=== PATIENT | female | born 1950 | race Caucasian/White ===

== ENCOUNTER 2020-08-20 10:35 | Outpatient (REF) | payer MEDICARE, SELFPAY ==
[2020-08-20 13:59] LABS: MANUAL DIFF FLAG NO
[2020-08-20 14:05] LABS: Basophils Absolute Auto 0.1 X10*3/uL (0.0-0.2); Basophils Percent Auto 0.6 % (0-2); Eosinophils Absolute Auto 0.4 X10*3/uL (0.0-0.4); Eosinophils Percent Auto 5.3 % (0-4); Hematocrit 34.5 % (37-47); Imm Gran Abs Auto 0.02 X10*3/uL (0.00-0.03); Imm Gran Pct Auto 0.3 % (0.0-0.4); Lymphocytes Absolute Auto 1.3 X10*3/uL (1.2-4.9); Lymphocytes Percent Auto 16.1 % (20-40); Mean Corpuscular HGB Conc 31.9 g/dl (31.0-35.0); Mean Corpuscular Hemoglobin 30.9 pg (27.0-33.0); Mean Corpuscular Volume 96.9 fL (80-98); Mean Platelet Volume 9.9 fL (9.4-12.3); Monocytes Absolute Auto 0.6 X10*3/uL (0.1-1.2); Monocytes Percent Auto 7.5 % (2-11); Neutrophils Absolute Auto 5.4 X10*3/uL (2.0-8.3); Neutrophils Percent Auto 70.2 % (45-73); Platelet Count 347 X10*3/uL (160-400); Red Blood Count 3.56 X10*6/uL (4.20-5.50); Red Cell Distribution Width 14.3 % (11.0-16.0); White Blood Count 7.8 X10*3/uL (4.8-10.8)
[2020-08-20 14:34] LABS: Uric Acid 8.4 mg/dL (2.4-5.7)
[2020-08-20 14:43] LABS: Alanine Aminotransferase 12 U/L (0-31); Albumin Level 3.8 g/dL (3.5-5.0); Alkaline Phosphatase 101 U/L (39-117); Anion Gap 15 (12-20); Aspartate Amino Transferase 16 U/L (5-31); Bilirubin Total 0.5 mg/dL (0.0-1.0); Blood Urea Nitrogen 24 mg/dL (9-16); Calcium 8.9 mg/dL (8.4-10.2); Carbon Dioxide 24 mmol/L (22-29); Chloride 106 mmol/L (96-108); Cholesterol 165 mg/dL; Estimated Glomerular Filt Rate 36; Glucose Fasting 84 mg/dL (60-99); HDL Cholesterol 63 mg/dL; LDL Cholesterol Calculated 90 mg/dl; Sodium 140 mmol/L (135-145); Total Protein 6.6 g/dL (6.5-8.0); Triglycerides 64 mg/dL
[2020-08-20 14:47] LABS: Thyroid Stimulating Hormone 1.17 uIU/mL (0.32-4.0)
== END 2020-08-20 10:36 | disposition home or self-care (01) ==
LOC: HO.10HDL 10:35
PROVIDERS: Absent Provider Internal Medicine; Visit Provider Internal Medicine Hypertension Specialist
DX: I12.9 Hypertensive chronic kidney disease with stage 1 through stage 4 chronic kidney disease, or unspecified chronic kidney disease (principal); N18.30 Chronic kidney disease, stage 3 unspecified
CPT/HCPCS: 36415; 80053; 80061; 84443; 84550; 85025

== ENCOUNTER 2020-11-18 12:36 | Outpatient (REF) | payer MEDICARE, SELFPAY ==
--- NOTE | ~2020-11-18 | XR_ITS ---
EXAMINATION: XR KNEE, RIGHT CLINICAL INFORMATION: Right knee pain COMPARISON: None TECHNIQUE: Two views of the right knee. FINDINGS: There is hypertrophic bony changes along the lateral patella and small superior-inferior periarticular spurring. This small to moderate joint effusion. There is loss of medial and lateral compartment joint space with periarticular spurring slightly greater in the lateral compartment. There is infrapatellar superficial soft tissue swelling. XR/XR knee RT 2V IMPRESSION: Degenerative arthritic changes within the tricompartments with moderate suprapatellar joint effusion. There is no acute fracture or loose body seen.
== END 2020-11-18 12:37 | disposition home or self-care (01) ==
LOC: HO.XRAY 12:36
PROVIDERS: PCP Internal Medicine; Visit Provider Internal Medicine
DX: M25.569 Pain in unspecified knee (principal)
CPT/HCPCS: 73560

== ENCOUNTER → 2020-12-03 11:12 | Outpatient (BNVA) | payer MEDICARE, SELFPAY | PROVIDERS: PCP Internal Medicine; Visit Provider Internal Medicine | DX: J44.9 Chronic obstructive pulmonary disease, unspecified (principal) | CPT/HCPCS: 99212 ==

== ENCOUNTER 2020-12-29 09:59 | Outpatient (REF) | payer MEDICARE, SELFPAY ==
[2020-12-29 13:56] LABS: MANUAL DIFF FLAG NO
[2020-12-29 14:06] LABS: Basophils Percent Auto 0.3 % (0-2); Eosinophils Absolute Auto 0.2 X10*3/uL (0.0-0.4); Eosinophils Percent Auto 2.6 % (0-4); Hematocrit 33.8 % (37-47); Hemoglobin 10.6 g/dl (12.0-16.0); Imm Gran Abs Auto 0.04 X10*3/uL (0.00-0.03); Imm Gran Pct Auto 0.5 % (0.0-0.4); Lymphocytes Absolute Auto 1.1 X10*3/uL (1.2-4.9); Lymphocytes Percent Auto 12.4 % (20-40); Mean Corpuscular HGB Conc 31.4 g/dl (31.0-35.0); Mean Corpuscular Hemoglobin 29.9 pg (27.0-33.0); Mean Corpuscular Volume 95.5 fL (80-98); Monocytes Absolute Auto 0.7 X10*3/uL (0.1-1.2); Monocytes Percent Auto 7.5 % (2-11); Neutrophils Absolute Auto 6.8 X10*3/uL (2.0-8.3); Neutrophils Percent Auto 76.7 % (45-73); Platelet Count 329 X10*3/uL (160-400); Red Blood Count 3.54 X10*6/uL (4.20-5.50); Red Cell Distribution Width 14.7 % (11.0-16.0); White Blood Count 8.9 X10*3/uL (4.8-10.8)
[2020-12-29 14:46] LABS: Creatinine Urine 126.17 mg/dL; Total Protein Urine Random < 7 mg/dL (<12)
[2020-12-29 14:50] LABS: Anion Gap 17 (12-20); Blood Urea Nitrogen 45 mg/dL (9-16); Calcium 9.4 mg/dL (8.4-10.2); Carbon Dioxide 25 mmol/L (22-29); Chloride 103 mmol/L (96-108); Estimated Glomerular Filt Rate 27; Magnesium 2.1 mg/dL (1.6-2.6); Phosphorus 4.1 mg/dL (2.7-4.5); Potassium 5.6 mmol/L (3.3-5.1); Sodium 139 mmol/L (135-145)
[2020-12-29 15:11] LABS: Thyroid Stimulating Hormone 1.69 uIU/mL (0.32-4.0)
[2020-12-30 18:41] LABS: Calcium (PTHI) 9.3 mg/dL (8.6-10.4); PTHI 106 pg/mL (14-64)
== END 2020-12-29 10:00 | disposition home or self-care (01) ==
LOC: HO.10HDL 09:59
PROVIDERS: Absent Provider Internal Medicine Hypertension Specialist; Visit Provider Internal Medicine
DX: E03.9 Hypothyroidism, unspecified (principal); I12.9 Hypertensive chronic kidney disease with stage 1 through stage 4 chronic kidney disease, or unspecified chronic kidney disease; N18.30 Chronic kidney disease, stage 3 unspecified
CPT/HCPCS: 36415; 80051; 82040; 82310; 82565; 83735; 83970; 84100; 84156; 84443; 84520; 85025

== ENCOUNTER → 2021-01-19 09:54 | Outpatient (BNVA) | payer MEDICARE, SELFPAY | PROVIDERS: PCP Internal Medicine; Visit Provider Orthopaedic Surgery | DX: M22.2X1 Patellofemoral disorders, right knee (principal) | CPT/HCPCS: 20610; 99202; J1040 ==

== ENCOUNTER 2021-02-21 17:05 | Emergency (ER) | payer MEDICARE, SELFPAY ==
[2021-02-21] VITALS (8 sets, daily range): BP systolic 111–161; BP diastolic 53–72; PULSE 70–85; RESP 12–20; TEMP 36.4; O2SAT 97–100; BMI 30.9
--- NOTE | ~2021-02-21 | CT_ITS ---
EXAMINATION: CT CERVICAL SPINE WITHOUT CONTRAST CT HEAD/BRAIN WITHOUT CONTRAST INDICATION INFORMATION: Fall. COMPARISON: None available. TECHNIQUE: Separate noncontrast CT examinations of the head and cervical spine were performed. Coronal and sagittal reformats were obtained at the acquisition workstation. This CT examination was performed using dose optimization techniques as appropriate, variously including the following: *Automated exposure control. *Adjustment of mA and/or kV according to patient size (this includes techniques or standardized protocols for targeted exams where dose is matched to indication/reason for exam; i.e. extremities or head). *Use of iterative reconstruction technique. DLP: 797 mGy-cm FINDINGS: HEAD: There is no evidence of acute intracranial hemorrhage or territorial infarction. No abnormal mass effect or midline shift is seen. Tktc-yc-wqqpv matter differentiation is well preserved. No extra-axial fluid collections are identified. Mild ventricular prominence. Moderate patchy deep white matter and periventricular hypodensities, probably reflecting chronic microangiopathy. No acute calvarial fracture. The mastoid air cells and visualized portions of the paranasal sinuses are well aerated. CERVICAL SPINE: Straightening of the cervical curvature. Mild anterolisthesis of C3 on C4, C7 on T1. Craniocervical, atlantoaxial articulations are maintained. Vertebral body heights are maintained. No evidence of acute fracture. Prominent cervical spondylosis, more severe changes of C5-C6, C6-C7 severe disc degeneration. No prevertebral soft tissue swelling. There is no cervical lymphadenopathy. The visualized thyroid gland is unremarkable. Mild patchy ground-glass/hazy opacities in the right lung apex. CT/CT cervical spine wo con IMPRESSION: 1. No CT evidence of acute intracranial pathology. 2. No CT evidence of acute osseous abnormality within the cervical spine. 3. Severe cervical spondylosis. 4. Mild patchy airspace/ground-glass opacities in the right lung apex, nonspecific, could reflect infectious or inflammatory process.
--- NOTE | ~2021-02-21 | XR_ITS ---
EXAMINATION: XR ELBOW, LEFT CLINICAL INFORMATION: Pain status post fall COMPARISON: None TECHNIQUE: AP, lateral, and oblique views of the left elbow. FINDINGS: Acute dislocation posteriorly of the elbow joint. Limited positioning. No discernible fracture. Soft tissue swelling. XR/XR elbow LT min 3V IMPRESSION: Complete dislocation of the elbow joint as above.
--- NOTE | ~2021-02-21 | XR_ITS ---
EXAMINATION: XR ELBOW, LEFT CLINICAL INFORMATION: Post-procedure. COMPARISON: X-ray 02/20/2021, 8:45 PM. TECHNIQUE: Two views of the left elbow. FINDINGS: Status post reduction. There is normal articulation and alignment at the elbow joint. Joint space is maintained. No visible discrete acute fracture. Joint effusion present. Soft tissue swelling about the elbow. XR/XR elbow LT 2V IMPRESSION: Status post reduction, with anatomic alignment. No radiographically visible discrete acute fracture. Soft tissue swelling. Joint effusion.
--- NOTE | ~2021-02-21 | XR_ITS ---
EXAMINATION: PORTABLE CHEST 1 VIEW CLINICAL INFORMATION: ggo on neck ct in upper lobe . COMPARISON: 02/21/2021 CT scan. TECHNIQUE: Portable frontal view of the chest was obtained. FINDINGS: The lungs are well expanded. No focal infiltrate, effusion, edema, or pneumothorax. Cardiac and mediastinal silhouettes are within normal limits for technique. No acute bony abnormality seen. Degenerative changes in the spine and shoulders XR/XR chest 1V IMPRESSION: I do not appreciate any focal airspace disease on the chest x-ray. The subtle airspace changes on the CT scan are not readily apparent on chest x-ray
--- NOTE | ~2021-02-21 | XR_ITS ---
EXAMINATION: XR SHOULDER, LEFT CLINICAL INFORMATION: Fall with EtOH. Cannot move shoulder/arm COMPARISON: None TECHNIQUE: AP external rotation, Grashey, scapular Y, and axillary views of the left shoulder. FINDINGS: Degenerative changes in the glenohumeral joint. There is mild superior subluxation the femoral head more suggestive of chronic rotator cuff injury. There are associated degenerative changes with endplate sclerosis and osteophyte formation in the glenohumeral joint as well. Hypertrophic degenerative changes seen in the acromioclavicular joint. Visualized left ribs unremarkable XR/XR shoulder LT min 2V IMPRESSION: Chronic appearing and degenerative changes to the left shoulder. No definitive acute fracture or dislocation.
--- NOTE | 2021-02-21 17:27 | ED_ITS ---
HPI - Fall General Chief Complaint: Fall Stated Complaint: etoh, ?dislocated shoulder Time Seen by Provider: 02/21/21 17:18 Source: patient Mode of arrival: EMS Limitations: no limitations History of Present Illness HPI Narrative: Patient is a 71-year-old female with a past medical history of COPD, hypo thyroidism and chronic knee pain who was BIBA after she fell while drinking alcohol outside with her friends just prior to arrival. Patient cannot recall the details of her fall. She does state she had at least 5 bloody Sharon's. She denies being on a blood thinner but does take 1 baby aspirin per day. She denies any head pain, dizziness or changes in her vision. She also denies chest pain shortness of breath and any other pain except for left shoulder pain. She states she cannot move her arm. She is in a C-collar. Related Data Home Medications Medication Instructions Recorded Confirmed biotin 1 mg capsule 1 mg PO DAILY 12/03/20 12/09/20 cholecalciferol (vitamin D3) 50 50 mcg PO DAILY 12/03/20 12/09/20 mcg (2,000 unit) capsule ondansetron HCl 4 mg tablet mg PO 12/03/20 12/09/20 simvastatin 40 mg tablet 40 mg PO DAILY 12/03/20 12/09/20 spironolactone 25 1 tab PO DAILY 12/03/20 12/09/20 mg-hydrochlorothiazide 25 mg tablet Previous Rx's Medication Instructions Recorded levothyroxine 125 mcg tablet 125 mcg PO DAILY 90 Days #90 tab 07/20/20 albuterol sulfate 90 mcg/actuation 2 puff INHALATION Q4H PRN #18 g 10/13/20 aerosol inhaler fluoxetine 20 mg capsule 20 mg PO DAILY #90 cap 10/17/20 esomeprazole magnesium 20 mg 20 mg PO DAILY #90 cap 12/09/20 capsule,delayed release tiotropium bromide 18 mcg capsule 1 cap INHALATION DAILY #30 cap 12/22/20 with inhalation device oxycodone 5 mg tablet 5 mg PO Q6H PRN #9 tab 02/11/21 lisinopril 5 mg tablet 5 mg PO DAILY #90 cap 02/17/21 Allergies Allergy/AdvReac Type Severity Reaction Status Date / Time No Known Allergies Allergy Unknown N/A Verified 01/19/21 10:20 Review of Systems Review of Systems: Yes all other systems are reviewed and are negative [facility] Past Medical History Medical History COPD (chronic obstructive pulmonary disease) Hypothyroidism Surgical History History of breast biopsy History of carpal tunnel release History of excision of mass History of lumbar fusion Venous insufficiency Family History Family History Father Renal failure Mother Renal failure Brother Diabetes Social History Social History Alcohol intake: current Alcohol intake frequency: holidays/special occasions only Smoking Status: Former smoker Tobacco Type: Cigarette Advance Directives: No Advance Directives Information Provided: No Current occupational status: retired Current occupation: right handed Physical Exam Vital Signs: Vital Signs: Last Vital Signs Temp 97.6 F 02/21/21 17:12 Pulse 80 02/21/21 21:17 Resp 12 02/21/21 21:17 BP 111/57 L 02/21/21 21:17 Pulse Ox 98 02/21/21 21:17 Body Mass Index 30.9 Const: General: cooperative, healthy appearing, comfortable and no acute distress Nutritional Appearance: obese Orientation/consciousness: patient oriented x3 Limitations: other limitations (Clinically intoxicated) HENMT: Head: Yes normal to inspection, Yes No palpable skull fracture present, Yes normocephalic, Yes atraumatic, No abrasion, No Chanel's sign, No contusion and No raccoon eyes Ears: hearing grossly normal bilaterally General nose exam: Normal external nose present Face and sinus: Yes normal facial exam Mouth: Normal oral and palatal mucosa present Teeth and gingiva: dentition normal Eyes: General: appearance normal, both eyes and all related structures Pupils: Pupil size comments bilaterally 6 Neck: Neck: Yes normal visual inspection Resp: Effort & Inspection: normal respiratory effort and able to speak in complete sentences Auscultation: clear to auscultation bilaterally Back/Spine/Pelvis: Cervical Spine: collar present Neuro: General: patient oriented x3 Extrem: Other: Left shoulder unable to rotate, 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 Left forearm no tenderness to palpation. No tenderness to right upper extremity, 5/5 mechanical maintenance supervisor strength right side, no te nderness to palpation bilateral lower extremities, 5/5 strength equal both sides. No ecchymosis lacerations or abrasions noted on entire body. Psych: Speech and movement: Slurred speech present Attitude: cooperative Course Course Course Narrative: Patient is a 71-year-old female with a past medical history of COPD, hypo thyroidism and chronic knee pain who was BIBA after she fell while drinking alcohol outside with her friends just prior to arrival. Patient cannot recall the details of her fall. VSS. 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 Will get left shoulder x-ray. Will get head CT and neck CT as well since patient is intoxicated and cannot recall the details of her fall. Reevaluation(s) Reevaluation #1: Head and neck CT negative for acute processes. I removed the cervical collar. Patient c/o l shoulder pain, 7/10, will give Toradol and Tylenol. Pending left shoulder x-ray results. Time: 19:20 Reevaluation #2: Chest x-ray and shoulder x-ray of both negative, will assure patient's pain under control and likely discharge home. Time: 20:13 Reevaluation #3: Upon re-evaluation, patient so elbow could not flex or extend, got elbow x-ray which showed a complete dislocation. Pt given 150mg IM ketamine for the procedure. Dr Bonner reduced the joint, follow up x-ray showed joint in place. Will discharge pt with sling, she has a friend who will be picking her up and staying with her for the night. Time: 21:26 Procedures Orthopedic Joint Reduction Joint #1: Time Out Performed: Yes Side: left Joint Reduction Location: elbow Analgesia: procedural sedation (150mg IM ketamine) Technique used: direct manipulation Post Reduction X-Ray Obtained: Yes Post Reduction X-Ray Results: reduced Splint Applied: No Patient Tolerated Procedure: well and no complications Additional Comments: provided sling for pt MDM - Fall Medical Records Attestation: I reviewed the patient's medical records. Imaging Data Chest x-ray: Attestation: I personally reviewed and interpreted this imaging study as follows: My impression: no acute process Radiologist's impression: [id number] [place], [place] [address]RNsr ReportSigned Patient: Swathi YoungMR#: [id number]: 8Acct:[id number]/Sex: 71 / FADM Date: 02/21/21Loc: EDAttending Dr: Ordering Physician: Ml Kapadia PA-C Date of Service: 02/21/21 Procedure(s): XR chest 1V Accession Number(s): [id number] cc: Ml Kapadia PA-C~ EXAMINATION: PORTABLE CHEST 1 VIEW CLINICAL INFORMATION: ggo on neck ct in upper lobe . COMPARISON: 02/21/2021 CT scan. TECHNIQUE: Portable frontal view of the chest was obtained. FINDINGS: The lungs are well expanded. No focal infiltrate, effusion, edema, or pneumothorax. Cardiac and mediastinal silhouettes are within normal limits for technique. No acute bony abnormality seen. Degenerative changes in the spine and shoulders XR/XR chest 1V IMPRESSION: I do not appreciate any focal airspace disease on the chest x-ray. The subtle airspace changes on the CT scan are not readily apparent on chest x-ray Dictated By:ALEJANDRO SMITH MDSigned By:<Electronically signed by ALEJANDRO SMITH MD in [place]>02/21/211928 DD/ 99TD/TT: Geographic Information Systems Director: YING CT scan - head: Attestation: I personally reviewed and interpreted this imaging study as follows: My impression: no acute processes Radiologist's impression: [address] [id number] Scan ReportSigned Patient: Swathi YoungMR#: [id number]: 8Acct: [id number]/Sex: 71 / FADM Date: 02/21/21Loc: EDAttending Dr: Ordering Physician: Ml Kapadia PA-C Date of Service: 02/21/21 Procedure(s): CT head/brain wo con Accession Number(s): [id number] cc: Ml Kapadia PA-C~ EXAMINATION: CT CERVICAL SPINE WITHOUT CONTRAST CT HEAD/BRAIN WITHOUT CONTRAST INDICATION INFORMATION: Fall. COMPARISON: None available. TECHNIQUE: Separate noncontrast CT examinations of the head and cervical spine were performed. Coronal and sagittal reformats were obtained at the acquisition workstation. This CT examination was performed using dose optimization techniques as appropriate, variously including the following: *Automated exposure control. *Adjustment of mA and/or kV according to patient size (this includes techniques or standardized protocols for targeted exams where dose is matched to indication/reason for exam; i.e. extremities or head). *Use of iterative reconstruction technique. DLP: 797 mGy-cm FINDINGS: HEAD: There is no evidence of acute intracranial hemorrhage or territorial infarction. No abnormal mass effect or midline shift is seen. Kfix-lh-edhcv matter differentiation is well preserved. No extra-axial fluid collections are identified. Mild ventricular prominence. Moderate patchy deep white matter and periventricular hypodensities, probably reflecting chronic microangiopathy. No acute calvarial fracture. The mastoid air cells and visualized portions of the paranasal sinuses are well aerated. CERVICAL SPINE: Straightening of the cervical curvature. Mild anterolisthesis of C3 on C4, C7 on T1. Craniocervical, atlantoaxial articulations are maintained. Vertebral body heights are maintained. No evidence of acute fracture. Prominent cervical spondylosis, more severe changes of C5-C6, C6-C7 severe disc degeneration. No prevertebral soft tissue swelling. There is no cervical lymphadenopathy. The visualized thyroid gland is unremarkable. Mild patchy ground-glass/hazy opacities in the right lung apex. CT/CT head/brain wo con IMPRESSION: 1. No CT evidence of acute intracranial pathology. 2. No CT evidence of acute osseous abnormality within the cervical spine. 3. Severe cervical spondylosis. 4. Mild patchy airspace/ground-glass opacities in the right lung apex, nonspecific, could reflect infectious or inflammatory process. Dictated By:DARRELL BOB MDSigned By:<Electronically signed by DARRELL BOB MD in [place]>02/21/211851 DD/ 172TD/TT: Geographic Information Systems Director: YARITZA shoulder x-ray: Attestation: I personally reviewed and interpreted this imaging study as follows: My impression: No fracture or dislocation Radiologist's impression: Diagnostics DATE TYPE STATUS REF RANGE/AUTHOR Hx Today 19:00 Alejandro Smith Today 17:25 Alejandro Smith Today 17:25 Darrell Bob Today 17:25 Darrell Bob 02/08/21 00:00 Screening Mammo Bilateral w/CAD - [place] 11/18/20 12:42 Rere,Aaron Swathi Young 71, F0 1950 [facility], Emergency Department ED Bed 19 -ED19 5ft 6in 87.09kg BMI: 31.0kg/m? Fall Search Chart 1ST CURRENT Today Today 19:37 20:08 *from earlier documentation N/A ONSET Total Unconfirmed No Data to Display No Data to Display Swathi Young 71 F [address] [id number] ReportSigned Patient: Swathi YoungMR#: [id number]: 8Acct:[id number]/Sex: 71 / FADM Date: 02/21/21Loc: HO.EDAttending Dr: Ordering Physician: Ml Kapadia PA-C Date of Service: 02/21/21 Procedure(s): XR shoulder LT min 2V Accession Number(s): [id number] cc: Ml Kapadia PA-C~ EXAMINATION: XR SHOULDER, LEFT CLINICAL INFORMATION: Fall with EtOH. Cannot move shoulder/arm COMPARISON: None TECHNIQUE: AP external rotation, Grashey, scapular Y, and axillary views of the left shoulder. FINDINGS: Degenerative changes in the glenohumeral joint. There is mild superior subluxation the femoral head more suggestive of chronic rotator cuff injury. There are associated degenerative changes with endplate sclerosis and osteophyte formation in the glenohumeral joint as well. Hypertrophic degenerative changes seen in the acromioclavicular joint. Visualized left ribs unremarkable XR/XR shoulder LT min 2V IMPRESSION: Chronic appearing and degenerative changes to the left shoulder. No definitive acute fracture or dislocation. Dictated By:ALEJANDRO SMITH MDSigned By:<Electronically signed by ALEJANDRO SMITH MD in [place]>02/21/211938 DD/ 1725TD/TT: Geographic Information Systems Director: YING Discharge Plan Discharge Clinical Impression: Dislocation, elbow Qualifiers: Encounter type: initial encounter Laterality: left Qualified Code(s): S53.105A - Unspecified dislocation of left ulnohumeral joint, initial encounter Acute shoulder pain due to trauma Qualifiers: Laterality: left Qualified Code(s): M25.512 - Pain in left shoulder Patient Disposition: Home, Self-Care Instructions: Shoulder Sprain (ED), Elbow Dislocation (ED) Additional Instructions: Please rest your elbow, use the sling as until feeling better. Please follow up with orthopedics or your PCP. Please rest your left shoulder, you may use ice, acetaminophen and ibuprofen as needed. If your pain does not improve over the next few days and weeks, please be sure to follow-up with your primary care doctor. I have also given you the name of our orthopedic doctor if you feel you need to see one. Please try to do range of motion exercises as your pain permits so you avoid a frozen shoulder. Prescriptions: No Action levothyroxine 125 mcg tablet 125 mcg PO DAILY 90 Days Qty: 90 RF: 8 albuterol sulfate [ProAir HFA] 90 mcg/actuation HFA aerosol inhaler 2 puff inhalation Q4H PRN (Reason: shortness of breath or wheezing) Qty: 18 RF: 3 fluoxetine 20 mg capsule 20 mg PO DAILY Qty: 90 RF: 1 tiotropium bromide [Spiriva with HandiHaler] 18 mcg capsule, w/inhalation device 1 cap inhalation DAILY Qty: 30 RF: 3 oxycodone 5 mg tablet 5 mg PO Q6H PRN (Reason: pain) Qty: 9 RF: 0 lisinopril 5 mg tablet 5 mg PO DAILY Qty: 90 RF: 1 esomeprazole magnesium 20 mg capsule,delayed release(DR/EC) 20 mg PO DAILY Qty: 90 RF: 8 spironolacton-hydrochlorothiaz 25-25 mg tablet 1 tab PO DAILY RF: 0 simvastatin 40 mg tablet 40 mg PO DAILY RF: 0 ondansetron HCl 4 mg tablet PO RF: 0 cholecalciferol (vitamin D3) 50 mcg (2,000 unit) capsule 50 mcg PO DAILY RF: 0 biotin 1 mg capsule 1 mg PO DAILY RF: 0 Referrals: Rebecca Styles MD [Physician] - 1 week (status post elbow dislocation and reduction in ED. If no improvement in pain or range of motion, elbow.)
[2021-02-21] MEDS: Acetaminophen 325 MG TABLET 650 MG PO (18:05)
[2021-02-21] MEDS: ondansetron HCL 4 MG/2 ML VIAL IVPUSH (19:09)
[2021-02-21] MEDS: Ketorolac Tromethamine 30 MG/ML VIAL IVPUSH (19:10)
--- NOTE | 2021-02-21 19:19 | PC.NURSE ---
c-collar removed by provider. pt complaining of nausea, medicated with zofran. pt awake and alert, patent airway.
[2021-02-21] MEDS: Ketamine HCl 500 MG/5 ML VIAL 200 MG IM (21:09)
--- NOTE | 2021-02-21 21:11 | PC.NURSE ---
plans to sedate pt with md at bedside, with 200 mg ketamine. pt placed on manager monitoring and 2 lpm 02. pt awake and alert, aware of plan. pt has ride planned when ready for discharge.
--- NOTE | 2021-02-21 21:13 | PC.NURSE ---
md and rt at bedside, ketamine 200mg im administered.
--- NOTE | 2021-02-21 21:22 | PC.NURSE ---
spo2 remains in high 90's pt not verbal at this time but has good respiratory effort and rate. repeat radiology to left elbow. left upper extremity placed in sling.
--- NOTE | 2021-02-21 21:35 | PC.NURSE ---
pt awake and verbal, asking to go home.
--- NOTE | 2021-02-21 22:25 | PC.NURSE ---
pt unsteady on feet, brought to bathroom by wc. pt back in bed and encouraged to rest.
--- NOTE | 2021-02-21 23:12 | PC.NURSE ---
pt asked for her phone, is calling her friend for a ride. pt awake and alert, able to tolerate p.o. fluids.
== END 2021-02-21 23:46 | disposition home or self-care (01) ==
PROVIDERS: Emergency Provider Internal Medicine
DX: S53.105A Unspecified dislocation of left ulnohumeral joint, initial encounter (principal); M25.512 Pain in left shoulder; F10.129 Alcohol abuse with intoxication, unspecified; W01.0XXA Fall on same level from slipping, tripping and stumbling without subsequent striking against object, initial encounter; Y93.9 Activity, unspecified; Y92.9 Unspecified place or not applicable; Y99.9 Unspecified external cause status; Y90.9 Presence of alcohol in blood, level not specified; Z79.899 Other long term (current) drug therapy; Z87.891 Personal history of nicotine dependence
CPT/HCPCS: 23575; 23655; 70450; 71045; 72125; 73030; 73070; 73080; 96372; 96374; 96375; 99284; J1885; J2405

== ENCOUNTER 2021-03-22 15:46 | Outpatient (REF) | payer MEDICARE, SELFPAY ==
[2021-03-22 16:53] LABS: MANUAL DIFF FLAG NO
[2021-03-22 17:00] LABS: Basophils Absolute Auto 0.1 X10*3/uL (0.0-0.2); Basophils Percent Auto 0.7 % (0-2); Eosinophils Absolute Auto 0.2 X10*3/uL (0.0-0.4); Eosinophils Percent Auto 2.7 % (0-4); Hematocrit 32.9 % (37-47); Hemoglobin 10.5 g/dl (12.0-16.0); Imm Gran Abs Auto 0.03 X10*3/uL (0.00-0.03); Imm Gran Pct Auto 0.4 % (0.0-0.4); Lymphocytes Absolute Auto 1.3 X10*3/uL (1.2-4.9); Lymphocytes Percent Auto 18.5 % (20-40); Mean Corpuscular HGB Conc 31.9 g/dl (31.0-35.0); Mean Corpuscular Hemoglobin 31.1 pg (27.0-33.0); Mean Corpuscular Volume 97.3 fL (80-98); Mean Platelet Volume 9.8 fL (9.4-12.3); Monocytes Absolute Auto 0.5 X10*3/uL (0.1-1.2); Monocytes Percent Auto 7.1 % (2-11); Neutrophils Percent Auto 70.6 % (45-73); Platelet Count 330 X10*3/uL (160-400); Red Blood Count 3.38 X10*6/uL (4.20-5.50); Red Cell Distribution Width 14.3 % (11.0-16.0); White Blood Count 7.1 X10*3/uL (4.8-10.8)
[2021-03-22 17:23] LABS: Alanine Aminotransferase 6 U/L (0-31); Alkaline Phosphatase 106 U/L (39-117); Anion Gap 15 (12-20); Aspartate Amino Transferase 14 U/L (5-31); Bilirubin Total 0.5 mg/dL (0.0-1.0); Blood Urea Nitrogen 34 mg/dL (9-16); Calcium 9.3 mg/dL (8.4-10.2); Carbon Dioxide 25 mmol/L (22-29); Chloride 106 mmol/L (96-108); Estimated Glomerular Filt Rate 29; Glucose Random 97 mg/dL (60-115); Sodium 141 mmol/L (135-145); Total Protein 6.6 g/dL (6.5-8.0)
[2021-03-22 17:31] LABS: Creatinine Urine 88.02 mg/dL; Total Protein Urine Random < 7 mg/dL (<12)
== END 2021-03-22 15:47 | disposition home or self-care (01) ==
LOC: HO.LAB 15:46
PROVIDERS: PCP Internal Medicine; Visit Provider Internal Medicine Hypertension Specialist
DX: I12.9 Hypertensive chronic kidney disease with stage 1 through stage 4 chronic kidney disease, or unspecified chronic kidney disease (principal); N18.9 Chronic kidney disease, unspecified
CPT/HCPCS: 36415; 80053; 84156; 85025

== ENCOUNTER → 2021-05-20 11:10 | Outpatient (BNVA) | payer MEDICARE, SELFPAY | PROVIDERS: PCP Internal Medicine; Visit Provider Internal Medicine | DX: J44.9 Chronic obstructive pulmonary disease, unspecified (principal) | CPT/HCPCS: 99212 ==

== ENCOUNTER 2021-08-30 10:16 | Outpatient (REF) | payer MEDICARE, SELFPAY ==
[2021-08-30 13:56] LABS: MANUAL DIFF FLAG NO
[2021-08-30 14:06] LABS: Basophils Absolute Auto 0.1 X10*3/uL (0.0-0.2); Basophils Percent Auto 0.8 % (0-2); Eosinophils Absolute Auto 0.5 X10*3/uL (0.0-0.4); Eosinophils Percent Auto 5.5 % (0-4); Hematocrit 32.5 % (37.0-47.0); Hemoglobin 10.4 g/dl (12.0-16.0); Imm Gran Abs Auto 0.03 X10*3/uL (0.00-0.03); Imm Gran Pct Auto 0.4 % (0.0-0.4); Lymphocytes Absolute Auto 1.4 X10*3/uL (1.2-4.9); Lymphocytes Percent Auto 16.4 % (20-40); Mean Corpuscular Hemoglobin 30.5 pg (27.0-33.0); Mean Corpuscular Volume 95.3 fL (80.0-98.0); Mean Platelet Volume 10.1 fL (9.4-12.3); Monocytes Absolute Auto 0.6 X10*3/uL (0.1-1.2); Neutrophils Absolute Auto 5.9 x10*3/uL (2.0-8.3); Neutrophils Percent Auto 69.9 % (45-73); Platelet Count 394 X10*3/uL (160-400); Red Blood Count 3.41 X10*6/uL (4.20-5.50); Red Cell Distribution Width 14.5 % (11.0-16.0); White Blood Count 8.5 X10*3/uL (4.8-10.8)
[2021-08-30 14:29] LABS: Alanine Aminotransferase 8 U/L (0-31); Albumin Level 3.8 g/dL (3.5-5.0); Alkaline Phosphatase 90 U/L (39-117); Anion Gap 14 (12-20); Aspartate Amino Transferase 14 U/L (5-31); Bilirubin Total 0.2 mg/dL (0.0-1.0); Blood Urea Nitrogen 41 mg/dL (9-16); Calcium 9.4 mg/dL (8.4-10.2); Carbon Dioxide 25 mmol/L (22-29); Chloride 108 mmol/L (96-108); Cholesterol 182 mg/dL; Estimated Glomerular Filt Rate 30; Glucose Fasting 91 mg/dL (60-99); HDL Cholesterol 52 mg/dL; LDL Cholesterol Calculated 113 mg/dl; Potassium 5.5 mmol/L (3.3-5.1); Sodium 141 mmol/L (135-145); Total Protein 6.5 g/dL (6.5-8.0); Triglycerides 85 mg/dL
[2021-08-30 14:34] LABS: Creatinine Urine 114.21 mg/dL; Protein/Creatinine Ratio, Ur 0.08 (<0.2); Total Protein Urine Random 9 mg/dL (<12)
[2021-08-30 14:36] LABS: Thyroid Stimulating Hormone 1.25 uIU/mL (0.32-4.0)
[2021-08-31 14:10] LABS: Calcium (PTHI) 9.2 mg/dL (8.6-10.4); PTHI 65 pg/mL (14-64)
== END 2021-08-30 10:17 | disposition home or self-care (01) ==
LOC: HO.10HDL 10:16
PROVIDERS: Absent Provider Internal Medicine Hypertension Specialist; Visit Provider Internal Medicine
DX: Z00.00 Encounter for general adult medical examination without abnormal findings (principal); E11.9 Type 2 diabetes mellitus without complications; E03.9 Hypothyroidism, unspecified; N18.32 Chronic kidney disease, stage 3b
CPT/HCPCS: 36415; 80053; 80061; 83970; 84156; 84443; 85025

== ENCOUNTER 2021-10-29 10:08 | Outpatient (REF) | payer MEDICARE, SELFPAY ==
--- NOTE | ~2021-10-29 | CT_ITS ---
EXAMINATION: CT CHEST SCREENING CLINICAL INFORMATION: Lung cancer screening. Current smoker. One pack per day. COMPARISON: Previous chest CT scans most recent April 2020 TECHNIQUE: Multidetector volumetric CT imaging of the chest is performed without contrast using low dose technique. Additional 2D coronal and sagittal reformatted images and axial 3D maximum intensity projection (MIP) images are generated on the CT workstation. This CT examination was performed using dose optimization techniques as appropriate, variously including the following: *Automated exposure control *Adjustment of mA and/or kV according to patient size (this includes techniques or standardized protocols for targeted exams where dose is matched to indication/reason for exam; i.e. extremities or head) *Use of iterative reconstruction technique DLP: 54 mGy-cm FINDINGS: LUNGS: There is interval increase size in the central left upper lobe nodule adjacent to a vessel. This measures approximately 6 x 10 mm axial image 240 series 5 compared to 5 mm on previous exams. Again, this could be better visualized with IV contrast from the adjacent vessel. There is a 2 mm calcified left upper lobe nodule axial image 177 series 5 that. There are new clustered peribronchial nodules in the right middle lobe suggestive of airways disease example axial image 85 series 5. The previously identified clustered peribronchial nodules that were new in the bilateral lower lobes suggestive of airways disease on most recent exam April 2020 are no longer seen. There is still faint increased attenuation seen in the right upper lobe, for example axial image 15 series 3 that appears unchanged. There is a faint area of increased groundglass attenuation in the left upper lobe measuring 5 x 10 mm axial image 12 series 3 that is new. MEDIASTINUM: There is a large esophageal hernia. Thoracic aorta is tortuous. The heart does not appear enlarged. There is mild coronary artery calcification. There is no pericardial effusion. There are no enlarged hilar or mediastinal lymph nodes PLEURA: There is no pleural effusion. No pleural mass or thickening. AXILLA: No lymphadenopathy. UPPER ABDOMEN: There is a 1 cm high attenuation lesion exophytic to the upper pole of the left kidney axial image 53 series 3. There is a larger 1.5 cm high attenuation lesion exophytic to the lateral mid to upper pole of the left kidney axial image 99 series 3. There is a round 1.7 cm low-attenuation lesion exophytic to the anterior midpole of the left kidney axial image 59 series 3. There is question of a high attenuation lesion exophytic to the lateral upper pole right kidney measuring 2 cm axial These are difficult to characterize and follow-up dedicated renal imaging is again recommended. OSSEOUS STRUCTURES: Scoliosis and degenerative changes of the spine. CT/CT lung screening IMPRESSION: Interval increase in size in the left upper lobe central perivascular nodule now measuring 6 x 10 mm. New clustered peribronchial right middle lobe nodules probably representing airways disease. Large esophageal hernia. Indeterminate renal lesions. Dedicated renal imaging recommended. ASSESSMENT: Lung-RADS category 4S Suspicious. RECOMMENDATION: Follow-up chest CT with IV contrast or PET/CT scan should be considered. Dedicated renal imaging recommended.
== END 2021-10-29 10:09 | disposition home or self-care (01) ==
LOC: HO.CT 10:08
PROVIDERS: Visit Provider Physician Assistant Medical
DX: Z12.2 Encounter for screening for malignant neoplasm of respiratory organs (principal); F17.210 Nicotine dependence, cigarettes, uncomplicated
CPT/HCPCS: 71271

== ENCOUNTER → 2021-11-23 11:12 | Outpatient (BNVA) | payer MEDICARE, SELFPAY | PROVIDERS: PCP Internal Medicine; Visit Provider Internal Medicine | DX: J44.9 Chronic obstructive pulmonary disease, unspecified (principal); R91.1 Solitary pulmonary nodule; Z87.891 Personal history of nicotine dependence | CPT/HCPCS: 99212 ==

== ENCOUNTER 2021-11-24 11:51 | Outpatient (REF) | payer MEDICARE, SELFPAY ==
--- NOTE | 2021-11-24 16:11 | PFT_ITS ---
Forced vital capacity of 64%, FEV1 60%, FEV1/FVC ratio is 70. FEF 25-75 is 48%. MVV 75%. Post bronchodilator therapy, there is no change. Total lung capacity 100% and residual volume 136%, indicating some air trapping. Diffusion capacity is 37%. CONCLUSION: Moderately severe obstructive airway disorder. No response to bronchodilator therapy. Clinical correlation is recommended. MD AVA Eubanks/MODL / [id number]
== END 2021-11-24 11:52 | disposition home or self-care (01) ==
LOC: HO.RESP 11:51
PROVIDERS: PCP Internal Medicine; Visit Provider Surgery
DX: Z01.818 Encounter for other preprocedural examination (principal); R91.8 Other nonspecific abnormal finding of lung field; F17.200 Nicotine dependence, unspecified, uncomplicated
CPT/HCPCS: 94060; 94727; 94729

== ENCOUNTER → 2021-12-10 10:54 | Outpatient (BNVA) | payer MEDICARE, SELFPAY | PROVIDERS: PCP Internal Medicine; Visit Provider Surgery | DX: R91.1 Solitary pulmonary nodule (principal); F17.210 Nicotine dependence, cigarettes, uncomplicated; K44.9 Diaphragmatic hernia without obstruction or gangrene; Z79.899 Other long term (current) drug therapy; Z71.6 Tobacco abuse counseling | CPT/HCPCS: 99212 ==

== ENCOUNTER 2022-01-04 14:38 | Outpatient (REF) | payer MEDICARE, SELFPAY ==
[2022-01-04 15:40] LABS: Anion Gap 12 (12-20); Blood Urea Nitrogen 42 mg/dL (9-16); Carbon Dioxide 27 mmol/L (22-29); Chloride 107 mmol/L (96-108); Estimated Glomerular Filt Rate 24; Glucose Random 89 mg/dL (60-115); Potassium 5.3 mmol/L (3.3-5.1); Sodium 141 mmol/L (135-145)
== END 2022-01-04 14:39 | disposition home or self-care (01) ==
LOC: HO.LAB 14:38
PROVIDERS: PCP Internal Medicine; Visit Provider Internal Medicine Hypertension Specialist
DX: N18.32 Chronic kidney disease, stage 3b (principal)
CPT/HCPCS: 36415; 80048

== ENCOUNTER 2022-01-26 11:36 | Outpatient (REF) | payer MEDICARE, SELFPAY ==
[2022-01-26 13:37] LABS: Anion Gap 13 (12-20); Blood Urea Nitrogen 27 mg/dL (9-16); Calcium 9.9 mg/dL (8.4-10.2); Carbon Dioxide 28 mmol/L (22-29); Chloride 104 mmol/L (96-108); Estimated Glomerular Filt Rate 32; Potassium 4.9 mmol/L (3.3-5.1); Sodium 140 mmol/L (135-145)
== END 2022-01-26 11:37 | disposition home or self-care (01) ==
LOC: HO.10HDL 11:36
PROVIDERS: PCP Internal Medicine; Visit Provider Internal Medicine Hypertension Specialist
DX: N18.31 Chronic kidney disease, stage 3a (principal)
CPT/HCPCS: 36415; 80051; 82310; 82565; 84520

== ENCOUNTER 2022-02-03 14:53 | Outpatient (REF) | payer MEDICARE, SELFPAY ==
--- NOTE | ~2022-02-03 | US_ITS ---
EXAMINATION: US RETROPERITONEAL LIMITED (RENAL ONLY) CLINICAL INFORMATION: CKD stage III. COMPARISON: Renal ultrasound 10/17/2017. TECHNIQUE: Real-time imaging of the kidneys. FINDINGS: RIGHT KIDNEY: 11.2 x 4.9 x 4.4 cm (SAG x AP x TRV). The kidney is normal in size and echogenicity. Renal cortical thickness is normal. Lobulated Contour. No renal calculi or hydronephrosis. There are multiple simple renal cysts. The largest is seen at the lower pole measuring 4.9 cm. No follow-up imaging recommended. LEFT KIDNEY: 9.8 x 3.7 x 3.5 cm (SAG x AP x TRV). The kidney is normal in size and echogenicity. Lobulated Contour. Renal cortical thickness is normal. No renal calculi or hydronephrosis. There are multiple cysts identified appearing simple. The largest is at the lower pole measuring 1.8 cm. No follow-up imaging recommended. US/US renal BI IMPRESSION: Simple bilateral renal cysts for which no follow-up is recommended. No hydronephrosis.
== END 2022-02-03 14:54 | disposition home or self-care (01) ==
LOC: HO.US 14:53
PROVIDERS: PCP Internal Medicine Hypertension Specialist; Visit Provider Internal Medicine Hypertension Specialist
DX: N18.31 Chronic kidney disease, stage 3a (principal)
CPT/HCPCS: 76775

== ENCOUNTER 2022-04-13 09:45 | Outpatient (REF) | payer MEDICARE, SELFPAY ==
[2022-04-13 11:28] LABS: Anion Gap 12 (12-20); Blood Urea Nitrogen 31 mg/dL (9-16); Calcium 9.4 mg/dL (8.4-10.2); Carbon Dioxide 27 mmol/L (22-29); Chloride 105 mmol/L (96-108); Estimated Glomerular Filt Rate 32; Potassium 4.4 mmol/L (3.3-5.1); Sodium 140 mmol/L (135-145)
== END 2022-04-13 09:46 | disposition home or self-care (01) ==
LOC: HO.10HDL 09:45
PROVIDERS: Absent Provider Internal Medicine; Visit Provider Internal Medicine Hypertension Specialist
DX: N18.32 Chronic kidney disease, stage 3b (principal)
CPT/HCPCS: 36415; 80051; 82310; 82565; 84520

== ENCOUNTER 2022-05-20 08:53 | Outpatient (REF) | payer MEDICARE, SELFPAY ==
--- NOTE | ~2022-05-20 | CT_ITS ---
EXAMINATION: CT CHEST SCREENING CLINICAL INFORMATION: Current smoker 1 pack per day for 60 years COMPARISON: CT chest 10/29/2021 TECHNIQUE: Multidetector volumetric CT imaging of the chest is performed without contrast using low dose technique. Additional 2D coronal and sagittal reformatted images and axial 3D maximum intensity projection (MIP) images are generated on the CT workstation. This CT examination was performed using dose optimization techniques as appropriate, variously including the following: *Automated exposure control *Adjustment of mA and/or kV according to patient size (this includes techniques or standardized protocols for targeted exams where dose is matched to indication/reason for exam; i.e. extremities or head) *Use of iterative reconstruction technique DLP: 54 mGy-cm FINDINGS: LUNGS: The lungs are well-expanded. There is a 1.0 cm left perivascular nodule in the lingula, axial image 273/6, stable. There is a 2 mm calcified nodule, left upper lobe, axial image 210/6. Clustered nodules, right middle lobe, with branching tree appearance, axial image 310/6, are stable. There is a 2 mm nodule, right lower lobe, axial image 278/6, 302/6, stable. MEDIASTINUM: The thyroid lobes are symmetric and normal. The central trachea and the bronchi are widely patent. Heart size and the great vessels are normal caliber. No pericardial effusion seen. There is a small hiatal hernia. Trace coronary artery calcifications are present. PLEURA: There is no pleural effusion. No pleural mass or thickening. AXILLA: No lymphadenopathy. UPPER ABDOMEN: Visualized liver, spleen, pancreas and exophytic left renal cyst appears stable. OSSEOUS STRUCTURES: No lytic or sclerotic process seen. Mild ventral spondylosis, lower dorsal and upper lumbar spine, are normal. There is vacuum disc phenomena in the lower dorsal spine. CT/CT lung screen follow up IMPRESSION: Stable tiny pulmonary nodules, right lower lobe, branching tree-in-bud appearance right middle lobe and a larger perivascular 1.0 cm nodule in the lingula since the previous exam of 10/29/2021 ASSESSMENT: Lung-RADS category 2: Benign RECOMMENDATION: Low-dose annual CT chest
== END 2022-05-20 08:54 | disposition home or self-care (01) ==
LOC: HO.CT 08:53
PROVIDERS: PCP Internal Medicine; Visit Provider Physician Assistant Medical
DX: Z12.2 Encounter for screening for malignant neoplasm of respiratory organs (principal); Z87.891 Personal history of nicotine dependence
CPT/HCPCS: 71250

== ENCOUNTER → 2022-06-06 11:25 | Outpatient (BNVA) | payer MEDICARE, SELFPAY | PROVIDERS: PCP Internal Medicine; Visit Provider Internal Medicine | DX: J44.9 Chronic obstructive pulmonary disease, unspecified (principal); R91.1 Solitary pulmonary nodule; F17.210 Nicotine dependence, cigarettes, uncomplicated; Z79.899 Other long term (current) drug therapy | CPT/HCPCS: 99212 ==

== ENCOUNTER → 2022-06-17 09:54 | Outpatient (BNVA) | payer MEDICARE, SELFPAY | PROVIDERS: PCP Internal Medicine; Visit Provider Surgery | DX: R91.1 Solitary pulmonary nodule (principal); K44.9 Diaphragmatic hernia without obstruction or gangrene; F17.210 Nicotine dependence, cigarettes, uncomplicated | CPT/HCPCS: 99212 ==

== ENCOUNTER 2022-06-22 08:51 | Outpatient (REF) | payer MEDICARE, SELFPAY ==
[2022-06-22 10:22] LABS: MANUAL DIFF FLAG NO
[2022-06-22 10:44] LABS: Basophils Absolute Auto 0.1 X10*3/uL (0.0-0.2); Eosinophils Absolute Auto 0.5 X10*3/uL (0.0-0.4); Eosinophils Percent Auto 7.6 % (0-4); Hematocrit 34.8 % (37.0-47.0); Imm Gran Abs Auto 0.01 X10*3/uL (0.00-0.03); Imm Gran Pct Auto 0.1 % (0.0-0.4); Lymphocytes Absolute Auto 1.9 X10*3/uL (1.2-4.9); Lymphocytes Percent Auto 27.2 % (20-40); Mean Corpuscular HGB Conc 31.6 g/dl (31.0-35.0); Mean Corpuscular Hemoglobin 28.5 pg (27.0-33.0); Mean Corpuscular Volume 90.2 fL (80.0-98.0); Mean Platelet Volume 9.7 fL (9.4-12.3); Monocytes Absolute Auto 0.5 X10*3/uL (0.1-1.2); Monocytes Percent Auto 7.7 % (2-11); Neutrophils Absolute Auto 3.9 x10*3/uL (2.0-8.3); Neutrophils Percent Auto 56.4 % (45-73); Platelet Count 409 X10*3/uL (160-400); Red Blood Count 3.86 X10*6/uL (4.20-5.50); Red Cell Distribution Width 15.9 % (11.0-16.0); White Blood Count 6.9 X10*3/uL (4.8-10.8)
[2022-06-22 10:51] LABS: Alanine Aminotransferase 12 U/L (0-31); Albumin Level 3.9 g/dL (3.5-5.0); Alkaline Phosphatase 116 U/L (39-117); Anion Gap 16 (12-20); Aspartate Amino Transferase 17 U/L (5-31); Bilirubin Total 0.5 mg/dL (0.0-1.0); Blood Urea Nitrogen 22 mg/dL (9-16); Calcium 9.6 mg/dL (8.4-10.2); Carbon Dioxide 26 mmol/L (22-29); Chloride 103 mmol/L (96-108); Cholesterol 189 mg/dL; Estimated Glomerular Filt Rate 32; Glucose Fasting 109 mg/dL (60-99); HDL Cholesterol 58 mg/dL; LDL Cholesterol Calculated 115 mg/dl; Potassium 4.2 mmol/L (3.3-5.1); Sodium 141 mmol/L (135-145); Total Protein 6.8 g/dL (6.5-8.0); Triglycerides 83 mg/dL
== END 2022-06-22 08:52 | disposition home or self-care (01) ==
LOC: HO.10HDL 08:51
PROVIDERS: Visit Provider Internal Medicine
DX: E03.9 Hypothyroidism, unspecified (principal); E78.5 Hyperlipidemia, unspecified; I10 Essential (primary) hypertension; Z13.0 Encounter for screening for diseases of the blood and blood-forming organs and certain disorders involving the immune mechanism
CPT/HCPCS: 36415; 80053; 80061; 84443; 85025

== ENCOUNTER 2022-08-17 10:16 | Outpatient (REF) | payer MEDICARE, SELFPAY ==
[2022-08-17 14:00] LABS: Hematocrit 33.4 % (37.0-47.0); Hemoglobin 10.7 g/dl (12.0-16.0); Mean Corpuscular Hemoglobin 28.9 pg (27.0-33.0); Mean Corpuscular Volume 90.3 fL (80.0-98.0); Mean Platelet Volume 9.6 fL (9.4-12.3); Platelet Count 373 X10*3/uL (160-400); Red Cell Distribution Width 14.9 % (11.0-16.0); White Blood Count 7.1 X10*3/uL (4.8-10.8)
[2022-08-17 14:15] LABS: Anion Gap 17 (12-20); Blood Urea Nitrogen 32 mg/dL (9-16); Calcium 9.6 mg/dL (8.4-10.2); Carbon Dioxide 27 mmol/L (22-29); Chloride 103 mmol/L (96-108); Estimated Glomerular Filt Rate 35; Glucose Random 98 mg/dL (60-115); Potassium 4.9 mmol/L (3.3-5.1); Sodium 142 mmol/L (135-145)
[2022-08-18 11:12] LABS: Calcium (PTHI) 9.3 mg/dL (8.6-10.4); PTHI 117 pg/mL (16-77)
== END 2022-08-17 10:17 | disposition home or self-care (01) ==
LOC: HO.10HDL 10:16
PROVIDERS: Visit Provider Internal Medicine Hypertension Specialist
DX: N18.32 Chronic kidney disease, stage 3b (principal)
CPT/HCPCS: 36415; 80048; 83970; 85027

== ENCOUNTER 2022-08-22 09:10 | Outpatient (REF) | payer MEDICARE, SELFPAY ==
[2022-08-22 09:22] VITALS: BP 164/76; PULSE 61; RESP 16; TEMP 36.9; O2SAT 100; BMI 31.6
== END 2022-08-22 09:11 | disposition home or self-care (01) ==
LOC: HO.MS 09:10
PROVIDERS: PCP Internal Medicine; Visit Provider Ophthalmology
PROC: (CPT 66821; principal; 2022-08-22 13:10)
DX: H26.491 Other secondary cataract, right eye (principal); Z96.1 Presence of intraocular lens; E03.9 Hypothyroidism, unspecified; I10 Essential (primary) hypertension; E78.00 Pure hypercholesterolemia, unspecified; Z79.82 Long term (current) use of aspirin; Z79.899 Other long term (current) drug therapy; Z87.891 Personal history of nicotine dependence
CPT/HCPCS: 66821

== ENCOUNTER → 2023-01-03 09:42 | Outpatient (BNVA) | payer MEDICARE, SELFPAY | PROVIDERS: PCP Internal Medicine; Visit Provider Internal Medicine | DX: R91.1 Solitary pulmonary nodule (principal); J44.9 Chronic obstructive pulmonary disease, unspecified; Z87.891 Personal history of nicotine dependence | CPT/HCPCS: 99212 ==

== ENCOUNTER 2023-03-08 09:02 | Outpatient (REF) | payer MEDICARE, SELFPAY ==
[2023-03-08 10:39] LABS: MANUAL DIFF FLAG NO
[2023-03-08 10:43] LABS: Basophils Absolute Auto 0.1 X10*3/uL (0.0-0.2); Basophils Percent Auto 1.2 % (0-2); Eosinophils Absolute Auto 0.5 X10*3/uL (0.0-0.4); Eosinophils Percent Auto 7.6 % (0-4); Hematocrit 32.6 % (37.0-47.0); Imm Gran Abs Auto 0.01 X10*3/uL (0.00-0.03); Imm Gran Pct Auto 0.2 % (0.0-0.4); Lymphocytes Absolute Auto 1.4 X10*3/uL (1.2-4.9); Lymphocytes Percent Auto 22.4 % (20-40); Mean Corpuscular HGB Conc 30.7 g/dl (31.0-35.0); Mean Corpuscular Hemoglobin 26.7 pg (27.0-33.0); Mean Corpuscular Volume 87.2 fL (80.0-98.0); Mean Platelet Volume 9.8 fL (9.4-12.3); Monocytes Absolute Auto 0.5 X10*3/uL (0.1-1.2); Monocytes Percent Auto 7.9 % (2-11); Neutrophils Absolute Auto 3.7 x10*3/uL (2.0-8.3); Neutrophils Percent Auto 60.7 % (45-73); Platelet Count 388 X10*3/uL (160-400); Red Blood Count 3.74 X10*6/uL (4.20-5.50); Red Cell Distribution Width 16.6 % (11.0-16.0); White Blood Count 6.1 X10*3/uL (4.8-10.8)
[2023-03-08 10:56] LABS: Anion Gap 12 (12-20); Blood Urea Nitrogen 34 mg/dL (9-16); Calcium 9.5 mg/dL (8.4-10.2); Carbon Dioxide 27 mmol/L (22-29); Chloride 105 mmol/L (96-108); Estimated Glomerular Filt Rate 32; Glucose Random 105 mg/dL (60-115); Potassium 4.1 mmol/L (3.3-5.1); Sodium 140 mmol/L (135-145)
[2023-03-08 11:03] LABS: Alanine Aminotransferase 11 U/L (0-31); Albumin Level 3.8 g/dL (3.5-5.0); Alkaline Phosphatase 90 U/L (39-117); Anion Gap 12 (12-20); Aspartate Amino Transferase 14 U/L (5-31); Bilirubin Total 0.5 mg/dL (0.0-1.0); Blood Urea Nitrogen 34 mg/dL (9-16); Calcium 9.6 mg/dL (8.4-10.2); Carbon Dioxide 28 mmol/L (22-29); Chloride 106 mmol/L (96-108); Cholesterol 179 mg/dL; Estimated Glomerular Filt Rate 33; Glucose Fasting 105 mg/dL (60-99); HDL Cholesterol 56 mg/dL; LDL Cholesterol Calculated 108 mg/dl; Potassium 4.1 mmol/L (3.3-5.1); Sodium 142 mmol/L (135-145); Total Protein 6.5 g/dL (6.5-8.0); Triglycerides 76 mg/dL
[2023-03-08 11:18] LABS: Thyroid Stimulating Hormone 5.65 uIU/mL (0.32-4.0)
== END 2023-03-08 09:03 | disposition home or self-care (01) ==
LOC: HO.10HDL 09:02
PROVIDERS: Psychiatry & Neurology Neurology; Visit Provider Internal Medicine
DX: I12.9 Hypertensive chronic kidney disease with stage 1 through stage 4 chronic kidney disease, or unspecified chronic kidney disease (principal); E78.5 Hyperlipidemia, unspecified; N18.32 Chronic kidney disease, stage 3b; D63.1 Anemia in chronic kidney disease; E03.9 Hypothyroidism, unspecified; N28.9 Disorder of kidney and ureter, unspecified
CPT/HCPCS: 36415; 80048; 80053; 80061; 84443; 85025

== ENCOUNTER 2023-05-24 12:08 | Outpatient (REF) | payer MEDICARE, SELFPAY ==
[2023-05-24 13:26] LABS: Cholesterol 197 mg/dL; HDL Cholesterol 65 mg/dL; Iron 69 mcg/dL (30-160); LDL Cholesterol Calculated 112 mg/dl; Percent Iron Saturation 22 % (15-50); Total Iron Binding Capacity 314 mcg/dL (228-428); Triglycerides 100 mg/dL; Unsaturated Iron Binding 245 ug/dL
[2023-05-24 13:42] LABS: Thyroid Stimulating Hormone 0.46 uIU/mL (0.32-4.0)
== END 2023-05-24 12:09 | disposition home or self-care (01) ==
LOC: HO.10HDL 12:08
PROVIDERS: Visit Provider Internal Medicine
DX: E61.1 Iron deficiency (principal); E03.9 Hypothyroidism, unspecified; E78.5 Hyperlipidemia, unspecified
CPT/HCPCS: 36415; 80061; 83540; 84443

== ENCOUNTER 2023-06-19 10:37 | Outpatient (AMB) | payer MEDICARE, SELFPAY ==
[2023-06-19 10:43] VITALS: BP 132/58; PULSE 59; O2SAT 94; BMI 30.1
--- NOTE | 2023-06-19 10:43 | A.OFFPC_ITS ---
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 per policy Accompanied by: Self / Same As Patient Allergies No Known Allergies Allergy (Unknown, Verified 06/19/23 10:44) N/A Medication List - Last Reconciled 06/19/23 by Viral Dawson MD albuterol sulfate 90 mcg/actuation 2 puffs PO Q4H PRN biotin 1 mg PO DAILY calcium carbonate (Calcium 500) 500 mg PO DAILY cholecalciferol (vitamin D3) 50 mcg PO DAILY esomeprazole magnesium 20 mg PO DAILY fluoxetine 20 mg PO DAILY levothyroxine 137 mcg PO DAILY ondansetron HCl mg PO PRN simvastatin 40 mg PO DAILY Spiriva with HandiHaler (tiotropium bromide) 1 cap PO DAILY NS spironolacton-hydrochlorothiaz 25-25 mg 1 tab PO DAILY Tobacco use date assessed: 12/12/22 Fall risk assessment: No Falls in past year Last assessed Fall Risk: 06/19/23 Dental Screening Dental Screen Date: 06/19/23 Did you have a dental visit in the last 12 months?: Yes Did you have a dental problem in the last 6 months where you did not have access to dental care?: No Was dental information given to patient?: Patient has dentist HPI 3mth f/u HPI Details hypothyroidism hyperlipidemia anc copd; still smokes [facility] Medical History Smoker Failed back syndrome of lumbar spine Hypertension Depression Hypertensive CKD (chronic kidney disease) Personal history of nicotine dependence Hyperlipidemia Obesity COPD (chronic obstructive pulmonary disease) Hypothyroidism Surgical History History of cataract surgery (~2015) History of breast biopsy History of lumbar fusion (~2006) History of excision of mass Venous insufficiency (~2015) History of carpal tunnel release (~2011) Family History Father Renal failure Mother Renal failure Brother Diabetes Social History (Reviewed 06/19/23 @ 10:44 by LUKAS Reaves Housing: House Alcohol intake: current Alcohol intake frequency: holidays/special occasions only Patient Tobacco Use Status: Current everyday Tobacco user Tobacco use type: Cigarette Cigarette Packs Per Day: 1 Cigarettes Per Day: 15 e-Cigarette/Vaping Use: Never Used Second Hand Smoke Exposure: Yes service: No Current occupational status: retired Current occupation: right handed Cognitive needs: No Hearing needs: No Vision needs: Yes (reading glasses) Questionnaire PHQ-9 Over the last 2 weeks, how often have you been bothered by any of the following problems? 1. Little interest or pleasure in doing things: not at all 2. Feeling down, depressed, or hopeless: not at all 3. Trouble falling or staying asleep, or sleeping too much: not at all 4. Feeling tired or having little energy: not at all 5. Poor appetite or overeating: not at all 6. Feeling bad about yourself - or that you are a failure or have let yourself or your family down: not at all 7. Trouble concentrating on things, such as reading the newspaper or watching television: not at all 8. Moving or speaking so slowly that other people could have noticed. Or the opposite - being so fidgety or restless that you have been moving around a lot more than usual: not at all 9. Thoughts that you would be better off or of hurting yourself in some way: not at all Total score: 0 Depression Screening Interpretation: Negative 19429 - PHQ-9 Billing: Yes Source: Developed by Drs. Ketna Kramer, Conor Coleman and colleagues, with an educational logan from [employer]. Thrive Questionnaire Date Thrive assessed: 12/12/22 AUDIT C Alcohol Use Questionnaire (AUDIT-C) 1. How often do you have a drink containing alcohol?: Never 3. How often do you have six or more drinks on one occasion?: Never Total Score: 0 Score Reviewed/Action Taken: Yes KINGSLEY-7 AMB Questionnaire KINGSLEY-7 Date KINGSLEY - 7 assessed: 12/12/22 Source: Developed by Drs. Ketan Kramer, Conor Coleman and colleagues, with an educational logan from [employer]. Review of Systems Const Denies chills, Denies headache(s) and Denies weight loss ENT Denies headache(s) Card Denies chest pain, Denies syncope, Denies irregular heart rhythm and Denies dyspnea Resp Denies chest congestion, Denies cough and Denies dyspnea GI Denies abdominal pain, Denies change in stool character, Denies nausea and Denies vomiting Musc Denies deformity and Denies joint swelling Neuro Denies syncope and Denies headache(s) Physical exam (Primary Care) Vital Signs: Last Vital Signs Pulse 59 06/19/23 10:43 BP 132/58 L 06/19/23 10:43 Pulse Ox 94 06/19/23 10:43 Oxygen Delivery Method Room Air 06/19/23 10:43 BMI result Body Mass Index 30.1 Tobacco/Smoking Status: Tobacco use Status Tobacco use date assessed 12/12/22 06/19/23 10:48 Patient Tobacco Use Status Current everyday Tobacco 06/19/23 10:48 Tobacco use type Cigarette 06/19/23 10:48 e-Cigarette/Vaping Use Never Used 06/19/23 10:48 Are you ready to quit: No Tobacco cessation counseling provided: Yes Number of minutes spent counselin CPT code: 17868 - 4-10 Minutes PHQ-9: PHQ-9 Score PHQ-9: Total score 0 06/19/23 10:48 Depression Screening Interpretation: Negative Thrive Assessment: Date of Thrive Assessment Date Thrive assessed 12/12/22 06/19/23 10:48 Const General: cooperative, comfortable, no acute distress and alert Neck Neck: Yes no lymphadenopathy Thyroid: Thyroid normal Resp Effort & Inspection: normal respiratory effort Auscultation: clear to auscultation bilaterally Percussion: percussion normal Cardio Jugular venous distension: no JVD Palpation: normal PMI Rate: regular rate Rhythm: regular rhythm Heart sounds: S1 normal heart sound present and S2 normal heart sound present GI Inspection: Yes normal to inspection Palpation (GI): No hepatosplenomegaly present Skin General skin exam: no rashes or lesions noted Extrem General: Yes no clubbing, cyanosis or edema Assessment and Plan Assessment & Plan (1) COPD (chronic obstructive pulmonary disease): Code(s): J44.9 - Chronic obstructive pulmonary disease, unspecified Plan: samee rx; advised to stop smoking (2) Hyperlipidemia: Code(s): E78.5 - Hyperlipidemia, unspecified Plan: stable; same rx (3) Hypothyroidism: Code(s): E03.9 - Hypothyroidism, unspecified Plan: stable Orders: Orders Lipid Panel Today E78.5 - Hyperlipidemia, unspecified Thyroid Stimulating Hormone Today E03.9 - Hypothyroidism, unspecified Coding Level of Care Code Est Pt Level 4 (18554) Diagnoses COPD (chronic obstructive pulmonary disease) J44.9 Hyperlipidemia E78.5 Hypothyroidism E03.9 Additional Codes Vital Signs *Quality* - CPT code: 28477 - 4-10 Minutes ([id number])
== END 2023-06-19 11:11 | disposition home or self-care (01) ==
PROVIDERS: PCP Internal Medicine; Visit Provider Internal Medicine
DX: J44.9 Chronic obstructive pulmonary disease, unspecified (principal); E78.5 Hyperlipidemia, unspecified; E03.9 Hypothyroidism, unspecified
CPT/HCPCS: 99214

== ENCOUNTER 2023-07-04 10:54 | Outpatient (AMB) | payer MEDICARE, SELFPAY ==
--- NOTE | 2023-07-04 11:05 | MHC.OFFVIS ---
Intake Vital Signs 07/04/23 11:07 Height 5 ft 6 in Weight 188 lb BMI 30.3 BP 120/70 Blood Pressure Location Lt brachial Position Sitting Pulse 67 Pulse Source Pulse Oximeter Pulse Oximetry (%) 100 Oxygen Delivery Method Room Air Intake Visit Reasons: COPD Intake Note: pt is here for follow up and states the usual stuff, nothing out of [facility] Locker Room Manager Required: No Allergies No Known Allergies Allergy (Unknown, Verified 07/04/23 11:38) N/A Medication List - Last Reconciled 07/04/23 by Guera Herrera MD albuterol sulfate 90 mcg/actuation 2 puffs PO Q4H PRN biotin 1 mg PO DAILY calcium carbonate (Calcium 500) 500 mg PO DAILY cholecalciferol (vitamin D3) 50 mcg PO DAILY esomeprazole magnesium 20 mg PO DAILY fluoxetine 20 mg PO DAILY levothyroxine 137 mcg PO DAILY ondansetron HCl mg PO PRN simvastatin 40 mg PO DAILY Spiriva with HandiHaler (tiotropium bromide) 1 cap PO DAILY NS spironolacton-hydrochlorothiaz 25-25 mg 1 tab PO DAILY Do you need a note to return to daycare/school/sports/work: No HPI COPD HPI Details Martina is 73 years old very pleasant female, . Comes for follow-up after 6 months Breathing status has been mostly stable with ups and Downs but not at frequently. She has had no acute. Respiratory infection Continues to use Spiriva HandiHaler once a day and albuterol only once in a while. The main problem is that she continues to smoke 1 pack a day. She is not able to cut down or quit. Discussed about quit smoking clinic, nicotine patch or gums, and she does not want. To go that route She say is in the past a psychologist had helped her to quit smoking and she is looking for making appointment with the same psychologist in [place]. She is participating in annual lung screening program. [facility] Medical History Smoker Failed back syndrome of lumbar spine Hypertension Depression Hypertensive CKD (chronic kidney disease) Personal history of nicotine dependence Hyperlipidemia Obesity COPD (chronic obstructive pulmonary disease) Hypothyroidism Surgical History History of cataract surgery (~2015) History of breast biopsy History of lumbar fusion (~2006) History of excision of mass Venous insufficiency (~2015) History of carpal tunnel release (~2011) Family History Father Renal failure Mother Renal failure Brother Diabetes Social History Housing: House Alcohol intake: current Alcohol intake frequency: holidays/special occasions only Patient Tobacco Use Status: Current everyday Tobacco user Tobacco use type: Cigarette Cigarette Packs Per Day: 1 Cigarettes Per Day: 15 e-Cigarette/Vaping Use: Never Used Second Hand Smoke Exposure: Yes service: No Current occupational status: retired Current occupation: right handed Cognitive needs: No Hearing needs: No Vision needs: Yes (reading glasses) Review of Systems Const All systems reviewed & are unremarkable except as noted in HPI and below ENT Reports no additional complaints Card Denies chest pain, Denies irregular heart rhythm and Denies leg edema Resp Reports as per HPI GI Reports heartburn (Controlled with med) Reports no additional complaints Musc Reports no additional complaints Skin/Breast Reports system reviewed and no additional complaints, except as documented Neuro Reports no additional complaints Psych Reports depression (Controlled with med) Endo Reports other (Thyroid controlled with med) Aller/Immun Reports no additional complaints Physical Exam Vital Signs: Last Vital Signs Pulse 67 07/04/23 11:07 BP 120/70 07/04/23 11:07 Pulse Ox 100 07/04/23 11:07 Oxygen Delivery Method Room Air 07/04/23 11:07 BMI result Body Mass Index 30.3 Const General: comfortable, no acute distress, alert and awake Orientation/consciousness: patient oriented x3 HEENT Head: Yes normal to inspection General nose exam: No nasal polyps present and No nasal discharge present Face and sinus: Yes sinuses nontender Mouth: oropharynx normal Throat: Yes posterior oropharynx normal Eyes General: appearance normal, both eyes and all related structures Neck Neck: Yes normal visual inspection, Yes no lymphadenopathy, Yes trachea midline and Yes no JVD Thyroid: Thyroid normal Chest Chest palpation & inspection: normal inspection of the chest, normal palpation of entire chest wall and no tenderness Resp Other: Percussion note resonant, breath sounds are distant with prolonged expiratory phase. But no crepitations or wheezes are heard. Cardio Palpation: normal PMI Rate: regular rate Rhythm: regular rhythm Heart sounds: no gallops and no murmurs GI Palpation (GI): Soft to palpation, nontender, No hepatosplenomegaly present and no masses Auscultation: normal bowel sounds Back/Spine/Pelvis Thoracic/Lumbar Spine: thoracic and lumbar spine normal to inspection Skin General skin exam: no rashes or lesions noted Neuro General: patient oriented x3 and no focal motor deficits Cranial nerves: Yes CN's II-XII intact bilaterally Extrem General: Yes normal to inspection, Yes no clubbing, cyanosis or edema and Yes no calf tenderness Psych Appearance: grossly normal and well kempt Speech and movement: Normal speech and movement present Assessment & Plan Assessment & Plan (1) Smoker: Comment: Unfortunately patient resumed smoking last year after the of 1 of her friends. She has difficulty in quitting. Now planning to start seeing her therapist , for behavior therapy, that may help. Code(s): F17.200 - Nicotine dependence, unspecified, uncomplicated (2) Pulmonary nodule: Comment: (6x10mm MASON nodule on 10/29/21 LDCT) last LDCT on 05/20/22 ,No new change . Patient is being followed very closely by Annual Lung Screening team . Code(s): R91.1 - Solitary pulmonary nodule (3) COPD (chronic obstructive pulmonary disease): Comment: MODERATELY SEVERE, STABLE AND SEEMES TO BE WELL CONTROLLED. TX : STAY ON SPIRIVA HANDIHALER 1 INHALATION DAILY, ALBUTEROL 2 PUFFS Q 4-6 HOURS P.R.N.. RE VISIT TO ME Q 6 MONTHS Code(s): J44.9 - Chronic obstructive pulmonary disease, unspecified Coding Level of Care Code Est Pt Level 3 (10886) Diagnoses Smoker F17.200 Pulmonary nodule R91.1 COPD (chronic obstructive pulmonary disease) J44.9
[2023-07-04 11:07] VITALS: BP 120/70; PULSE 67; O2SAT 100; BMI 30.3
== END 2023-07-04 11:39 | disposition home or self-care (01) ==
PROVIDERS: PCP Internal Medicine; Visit Provider Internal Medicine
DX: F17.200 Nicotine dependence, unspecified, uncomplicated (principal); R91.1 Solitary pulmonary nodule; J44.9 Chronic obstructive pulmonary disease, unspecified
CPT/HCPCS: 99213

== ENCOUNTER → 2023-07-04 10:54 | Outpatient (BNVA) | payer MEDICARE, SELFPAY | PROVIDERS: Visit Provider Internal Medicine | DX: J44.9 Chronic obstructive pulmonary disease, unspecified (principal); R91.1 Solitary pulmonary nodule; F17.210 Nicotine dependence, cigarettes, uncomplicated | CPT/HCPCS: 99212 ==

== ENCOUNTER 2023-07-18 09:37 | Outpatient (REF) | payer MEDICARE, SELFPAY ==
--- NOTE | ~2023-07-18 | CT_ITS ---
EXAMINATION: CT CHEST WITHOUT CONTRAST CLINICAL INFORMATION: Solitary pulmonary nodule. COMPARISON: CT lung cancer screening 05/20/2022. TECHNIQUE: Multidetector volumetric CT imaging of the chest was done. Axial MIP volume rendering provided. Sagittal and coronal reformatted images were obtained. This CT examination was performed using dose optimization techniques as appropriate, variously including the following: *Automated exposure control *Adjustment of mA and/or kV according to patient size (this includes techniques or standardized protocols for targeted exams where dose is matched to indication/reason for exam; i.e. extremities or head) *Use of iterative reconstruction technique DLP: 139 mGy-cm FINDINGS: LUNGS: Stable 1.0 x 0.7 cm perivascular nodule in the lingula series 7 image 282. There is a new 1.9 x 1.1 x 1.1 cm part solid nodule with amorphous solid component measuring up to 9 mm. This has a peribronchial distribution and may be inflammatory but warrants short-term follow-up. Tree-in-bud disease in the middle lobe is stable. There is chronic airway wall thickening with centrilobular groundglass changes consistent with bronchiolitis. There is mucoid debris in the posterior trachea. MEDIASTINUM: No adenopathy. Normal caliber thoracic aorta. Large hiatal hernia. CORONARY ARTERY CALCIFICATION: Mild. PLEURA: There is no pleural effusion. No pleural mass or thickening. AXILLA: No lymphadenopathy. UPPER ABDOMEN: Hyperdense renal cysts, Bosniak 2. No follow-up imaging is recommended. Small cholelithiasis. OSSEOUS STRUCTURES: Degenerative changes in the spine CT/CT chest wo IV con IMPRESSION: New 1.9 x 1.1 x 1.1 cm part solid nodule with amorphous solid component measuring 9 mm. This has a peribronchial distribution and may be inflammatory. This chest CT was not ordered as a lung cancer screening CT, but this nodule is a suspicious finding and is considered Lung-RADs 4B. Because this is potentially infectious/inflammatory, short-term chest CT follow up in one month is recommended. Fleischner guidelines do not apply.
== END 2023-07-18 09:38 | disposition home or self-care (01) ==
LOC: HO.CT 09:37
PROVIDERS: PCP Internal Medicine; Visit Provider Surgery
DX: R91.1 Solitary pulmonary nodule (principal)
CPT/HCPCS: 71250

== ENCOUNTER 2023-08-07 13:46 | Outpatient (AMB) | payer MEDICARE, SELFPAY ==
[2023-08-07 13:50] VITALS: PULSE 71; BMI 29.9
--- NOTE | 2023-08-07 13:50 | MHC.OFFVIS ---
Intake Vital Signs 08/07/23 13:50 Height 5 ft 6 in Weight 185 lb BMI 29.9 Pulse 71 Intake Visit Reasons: lung lesion Intake Note: Patient recently had chest CT scan. Was referred for lesion on lung. At times reports difficulty breathing and out of breath easily. Seen Dr. Herrera risk consulting treasury director about 2m ago. Economic Development Coordinator Required: No Accompanied by: Self / Same As Patient Allergies No Known Allergies Allergy (Unknown, Verified 08/07/23 13:58) N/A Medication List - Last Reconciled 08/07/23 by Dinesh Farr MD albuterol sulfate 90 mcg/actuation 2 puffs PO Q4H PRN biotin 1 mg PO DAILY calcium carbonate (Calcium 500) 500 mg PO DAILY cholecalciferol (vitamin D3) 50 mcg PO DAILY esomeprazole magnesium 20 mg PO DAILY fluoxetine 20 mg PO DAILY levothyroxine 137 mcg PO DAILY ondansetron HCl mg PO PRN simvastatin 40 mg PO DAILY Spiriva with HandiHaler (tiotropium bromide) 1 cap PO DAILY NS spironolacton-hydrochlorothiaz 25-25 mg 1 tab PO DAILY HPI HPI Comments History of Present Illness Details Patient is following up status post lung cancer screening clinic for a lingular lesion which has increased in size and become suspicious. She has only had low-dose CT scans and not a formal CT scan of the chest. Patient has a very significant smoking history of currently 1 pack per day. She had more in the past. She is tempted to discontinue smoking by a variety of means and measures (hypnosis patch, gum) all in successfully. Chart was reviewed patient evaluate [facility] Medical History Smoker Failed back syndrome of lumbar spine Hypertension Depression Hypertensive CKD (chronic kidney disease) Personal history of nicotine dependence Hyperlipidemia Obesity COPD (chronic obstructive pulmonary disease) Hypothyroidism Surgical History History of cataract surgery (~2015) History of breast biopsy History of lumbar fusion (~2006) History of excision of mass Venous insufficiency (~2015) History of carpal tunnel release (~2011) Family History Father Renal failure Mother Renal failure Brother Diabetes Social History (Reviewed 08/07/23 @ 13:59 by LUKAS Lorenzo Housing: House Alcohol intake: current Alcohol intake frequency: holidays/special occasions only Patient Tobacco Use Status: Current everyday Tobacco user Tobacco use type: Cigarette Cigarette Packs Per Day: 1 Cigarettes Per Day: 15 e-Cigarette/Vaping Use: Never Used Second Hand Smoke Exposure: Yes service: No Current occupational status: retired Current occupation: right handed Cognitive needs: No Hearing needs: No Vision needs: Yes (reading glasses) Physical Exam Vital Signs: Last Vital Signs Pulse 71 08/07/23 13:50 BMI result Body Mass Index 29.9 HEENT Other: No cervical, periclavicular, or axillary adenopathy. Chest Other: Chest breath sounds bilaterally, consistent with COPD. GI Other: Abdomen moderatecorpulent, soft, benign Assessment & Plan Assessment & Plan (1) Lesion of left lung: Code(s): R91.1 - Solitary pulmonary nodule Plan: Lung screening CT scan results reviewed the patient current plan is to arrange for a formal CT scan of the chest and direct further therapy based on these results. All questions were answered. Patient will see me after the study or p.r.n. pain Orders: Orders CT chest wo/w IV con Today R91.1 - Solitary pulmonary nodule Coding Level of Care Code New Pt Level 4 (00739) Diagnoses Lesion of left lung R91.1
== END 2023-08-07 14:06 | disposition home or self-care (01) ==
PROVIDERS: PCP Internal Medicine; Visit Provider Surgery
DX: R91.1 Solitary pulmonary nodule (principal)
CPT/HCPCS: 99204

== ENCOUNTER → 2023-08-07 13:46 | Outpatient (BNVA) | payer MEDICARE, SELFPAY | PROVIDERS: PCP Internal Medicine; Visit Provider Surgery | DX: R91.1 Solitary pulmonary nodule (principal) | CPT/HCPCS: 99202 ==

== ENCOUNTER 2023-09-07 12:08 | Outpatient (REF) | payer MEDICARE, SELFPAY ==
[2023-09-07 13:40] LABS: Anion Gap 12 (12-20); Blood Urea Nitrogen 25 mg/dL (9-16); Calcium 9.9 mg/dL (8.4-10.2); Carbon Dioxide 27 mmol/L (22-29); Chloride 103 mmol/L (96-108); Estimated Glomerular Filt Rate 40; Glucose Random 117 mg/dL (60-115); Potassium 4.4 mmol/L (3.3-5.1); Sodium 138 mmol/L (135-145)
[2023-09-07 13:56] LABS: Cholesterol 182 mg/dL (<200); HDL Cholesterol 60 mg/dL (>40); LDL Cholesterol Calculated 106 mg/dL (<100); Triglycerides 82 mg/dL (<150)
[2023-09-07 14:00] LABS: Thyroid Stimulating Hormone 0.78 uIU/mL (0.32-4.0)
[2023-09-07 14:06] LABS: Creatinine Urine 124.55 mg/dL; Protein/Creatinine Ratio, Ur 0.15 (<0.2); Total Protein Urine Random 19 mg/dL (<12)
== END 2023-09-07 12:09 | disposition home or self-care (01) ==
LOC: HO.10HDL 12:08
PROVIDERS: Internal Medicine; Visit Provider Internal Medicine Hypertension Specialist
DX: N18.30 Chronic kidney disease, stage 3 unspecified (principal); E03.9 Hypothyroidism, unspecified; E78.5 Hyperlipidemia, unspecified
CPT/HCPCS: 36415; 80048; 80061; 82570; 84156; 84443

== ENCOUNTER 2023-09-18 11:36 | Outpatient (AMB) | payer MEDICARE, SELFPAY ==
[2023-09-18 11:39] VITALS: BP 150/80; PULSE 70; O2SAT 98
--- NOTE | 2023-09-18 11:39 | A.OFFPC_ITS ---
Vital Signs 09/18/23 11:39 Height 5 ft 6 in Weight 186 lb BMI 30.0 BP 150/80 H Blood Pressure Location Lt brachial Position Sitting Pulse 70 Pulse Source Pulse Oximeter Pulse Oximetry (%) 98 Oxygen Delivery Method Room Air Intake Visit Reasons: 3mth f/u Outside Machinist Helper Required: No Drop Wire Operator: Not Required per policy Accompanied by: Self / Same As Patient Allergies No Known Allergies Allergy (Unknown, Verified 09/18/23 11:40) N/A Medication List - Last Reconciled 09/18/23 by Viral Dawson MD albuterol sulfate 90 mcg/actuation 2 puffs PO Q4H PRN biotin 1 mg PO DAILY calcium carbonate (Calcium 500) 500 mg PO DAILY cholecalciferol (vitamin D3) 50 mcg PO DAILY esomeprazole magnesium 20 mg PO DAILY fluoxetine 20 mg PO DAILY levothyroxine 137 mcg PO DAILY ondansetron HCl mg PO PRN simvastatin 40 mg PO DAILY Spiriva with HandiHaler (tiotropium bromide) 1 cap PO DAILY NS spironolacton-hydrochlorothiaz 25-25 mg 1 tab PO DAILY Tobacco use date assessed: 12/12/22 Fall risk assessment: No Falls in past year Last assessed Fall Risk: 09/18/23 Dental Screening Dental Screen Date: 09/18/23 Did you have a dental visit in the last 12 months?: Yes Did you have a dental problem in the last 6 months where you did not have access to dental care?: No Was dental information given to patient?: Patient has dentist HPI 3mth f/u HPI Details hypothyroidism copd and hyperlip; still smokes 1 ppd PFSH Medical History Smoker Failed back syndrome of lumbar spine Hypertension Depression Hypertensive CKD (chronic kidney disease) Personal history of nicotine dependence Hyperlipidemia Obesity COPD (chronic obstructive pulmonary disease) Hypothyroidism Surgical History History of cataract surgery (~2015) History of breast biopsy History of lumbar fusion (~2006) History of excision of mass Venous insufficiency (~2015) History of carpal tunnel release (~2011) Family History Father Renal failure Mother Renal failure Brother Diabetes Social History (Reviewed 09/18/23 @ 11:40 by LUKAS Reaves Housing: House Alcohol intake: current Alcohol intake frequency: holidays/special occasions only Patient Tobacco Use Status: Current everyday Tobacco user Tobacco use type: Cigarette Cigarette Packs Per Day: 1 Cigarettes Per Day: 15 e-Cigarette/Vaping Use: Never Used Second Hand Smoke Exposure: Yes service: No Current occupational status: retired Current occupation: right handed Cognitive needs: No Hearing needs: No Vision needs: Yes (reading glasses) Questionnaire PHQ-9 Over the last 2 weeks, how often have you been bothered by any of the following problems? 1. Little interest or pleasure in doing things: not at all 2. Feeling down, depressed, or hopeless: not at all 3. Trouble falling or staying asleep, or sleeping too much: not at all 4. Feeling tired or having little energy: not at all 5. Poor appetite or overeating: not at all 6. Feeling bad about yourself - or that you are a failure or have let yourself or your family down: not at all 7. Trouble concentrating on things, such as reading the newspaper or watching television: not at all 8. Moving or speaking so slowly that other people could have noticed. Or the opposite - being so fidgety or restless that you have been moving around a lot more than usual: not at all 9. Thoughts that you would be better off or of hurting yourself in some way: not at all Total score: 0 Depression Screening Interpretation: Negative Depression Screening Done: Yes 25733 - PHQ-9 Billing: Yes Source: Developed by Drs. Ketan Kramer, Sushila Sorto, Conor Foley and colleagues, with an educational logan from [employer]. Thrive Questionnaire Date Thrive assessed: 12/12/22 KINGSLEY-7 AMB Questionnaire KINGSLEY-7 Date KINGSLEY - 7 assessed: 12/12/22 Source: Developed by Drs. Ketan Kramer, Sushila Sorto, Conor Foley and colleagues, with an educational logan from [employer]. Review of Systems Const Denies chills, Denies headache(s) and Denies weight loss ENT Denies headache(s) Card Denies chest pain, Denies syncope, Denies irregular heart rhythm and Denies dyspnea Resp Denies chest congestion, Denies cough and Denies dyspnea GI Denies abdominal pain, Denies change in stool character, Denies nausea and Denies vomiting Musc Denies deformity and Denies joint swelling Neuro Denies syncope and Denies headache(s) Physical exam (Primary Care) Vital Signs: Last Vital Signs Pulse 70 09/18/23 11:39 BP 150/80 H 09/18/23 11:39 Pulse Ox 98 09/18/23 11:39 Oxygen Delivery Method Room Air 09/18/23 11:39 BMI result Body Mass Index 30.0 Tobacco/Smoking Status: Tobacco use Status Tobacco use date assessed 12/12/22 09/18/23 11:47 Patient Tobacco Use Status Current everyday Tobacco 09/18/23 11:47 Tobacco use type Cigarette 09/18/23 11:47 e-Cigarette/Vaping Use Never Used 09/18/23 11:47 PHQ-9: PHQ-9 Score PHQ-9: Total score 0 09/18/23 11:48 Depression Screening Interpretation: Negative Thrive Assessment: Date of Thrive Assessment Date Thrive assessed 12/12/22 09/18/23 11:47 Const General: cooperative, comfortable, no acute distress and alert Neck Neck: Yes no lymphadenopathy Thyroid: Thyroid normal Resp Effort & Inspection: normal respiratory effort Auscultation: clear to auscultation bilaterally Percussion: percussion normal Cardio Jugular venous distension: no JVD Palpation: normal PMI Rate: regular rate Rhythm: regular rhythm Heart sounds: S1 normal heart sound present and S2 normal heart sound present GI Inspection: Yes normal to inspection Palpation (GI): No hepatosplenomegaly present Skin General skin exam: no rashes or lesions noted Extrem General: Yes no clubbing, cyanosis or edema Assessment and Plan Assessment & Plan (1) COPD (chronic obstructive pulmonary disease): Code(s): J44.9 - Chronic obstructive pulmonary disease, unspecified Plan: again advised to stop smoking (2) Hypertension: Code(s): I10 - Essential (primary) hypertension Plan: stable; same rx (3) Hyperlipidemia: Code(s): E78.5 - Hyperlipidemia, unspecified Plan: stable; same rx Coding Level of Care Code Est Pt Level 4 (72496) Diagnoses COPD (chronic obstructive pulmonary disease) J44.9 Hypertension I10 Hyperlipidemia E78.5
== END 2023-09-18 11:53 | disposition home or self-care (01) ==
PROVIDERS: PCP Internal Medicine; Visit Provider Internal Medicine
DX: J44.9 Chronic obstructive pulmonary disease, unspecified (principal); I10 Essential (primary) hypertension; E78.5 Hyperlipidemia, unspecified
CPT/HCPCS: 99214

== ENCOUNTER 2023-09-18 13:13 | Outpatient (AMB) | payer MEDICARE, SELFPAY ==
--- NOTE | 2023-09-18 13:15 | HO.NEPHOV ---
HPI HPI Comments History of Present Illness Details 73 yr old woman with h/o smoking and HTN with CKD Here for semiannual follow up Continues to smoke PFSH Medical History Smoker Failed back syndrome of lumbar spine Hypertension Depression Hypertensive CKD (chronic kidney disease) Personal history of nicotine dependence Hyperlipidemia Obesity COPD (chronic obstructive pulmonary disease) Hypothyroidism Surgical History History of cataract surgery (~2015) History of breast biopsy History of lumbar fusion (~2006) History of excision of mass Venous insufficiency (~2015) History of carpal tunnel release (~2011) Family History Father Renal failure Mother Renal failure Brother Diabetes Social History Housing: House Alcohol intake: current Alcohol intake frequency: holidays/special occasions only Patient Tobacco Use Status: Current everyday Tobacco user Tobacco use type: Cigarette Cigarette Packs Per Day: 1 Cigarettes Per Day: 15 e-Cigarette/Vaping Use: Never Used Second Hand Smoke Exposure: Yes service: No Current occupational status: retired Current occupation: right handed Cognitive needs: No Hearing needs: No Vision needs: Yes (reading glasses) Vital Signs 09/18/23 13:16 Height 5 ft 6 in Weight 187 lb 2 oz BMI 30.2 BP 150/80 H Blood Pressure Location Lt brachial Position Sitting Pulse 70 Pulse Source Pulse Oximeter Pulse Oximetry (%) 98 Oxygen Delivery Method Room Air Physical Exam Vital Signs: Last Vital Signs Pulse 70 09/18/23 13:16 BP 150/80 H 09/18/23 13:16 Pulse Ox 98 09/18/23 13:16 Oxygen Delivery Method Room Air 09/18/23 13:16 BMI result Body Mass Index 30.2 Const General: comfortable Nutritional Appearance: well nourished Orientation/consciousness: patient oriented x3 HEENT Head: No normal to inspection Mouth: moist mucous membranes Neck Neck: Yes supple and Yes no JVD Resp Auscultation: clear to auscultation bilaterally, no rales and rub present Cardio Jugular venous distension: no JVD Palpation: no palpable S3 and no palpable S4 Heart sounds: no rubs GI Palpation (GI): Soft to palpation and nontender Percussion: No Fluid wave present General: Yes no CVA tenderness Back/Spine/Pelvis Back: no CVA tenderness Skin General skin exam: no rashes or lesions noted Neuro General: patient oriented x3 Extrem General: Yes no pedal edema and No clubbing Assessment & Plan Assessment & Plan (1) Hypertensive CKD (chronic kidney disease): Code(s): I12.9 - Hypertensive chronic kidney disease with stage 1 through stage 4 chronic kidney disease, or unspecified chronic kidney disease Plan Elderly woman with CKD in a setting of HTN and obesity Creatinine is stable at baseline No proteinuria Goal to keep SBP < 140 Avoid nephrotoxins including NSAIDS Needs to stop smoking; Discussed with patient. Bilateral simple cysts in kidney NO further follow up has been recommended Mild anemia No indication for Epogen Orders: Orders Electrolytes 4 Months I12.9 - Hypertensive chronic kidney disease with stage 1 through stage 4 chronic kidney disease, or unspecified chronic kidney disease Calcium 4 Months I12.9 - Hypertensive chronic kidney disease with stage 1 through stage 4 chronic kidney disease, or unspecified chronic kidney disease Blood Urea Nitrogen 4 Months I12.9 - Hypertensive chronic kidney disease with stage 1 through stage 4 chronic kidney disease, or unspecified chronic kidney disease Creatinine 4 Months I12.9 - Hypertensive chronic kidney disease with stage 1 through stage 4 chronic kidney disease, or unspecified chronic kidney disease Coding Level of Care Code Est Pt Level 3 (10090) Diagnoses Hypertensive CKD (chronic kidney disease) I12.9 Results Reviewed Results Reviewed: US/US renal BI 2021 Simple bilateral renal cysts for which no follow-up is recommended. No hydronephrosis. Nephrology Results: Hgb 10.0 g/dl (12.0-16.0) L 03/08/23 WBC 6.1 X10*3/uL (4.8-10.8) 03/08/23 Plt Count 388 X10*3/uL (160-400) 03/08/23 Sodium 138 mmol/L (135-145) 09/07/23 Potassium 4.4 mmol/L (3.3-5.1) 09/07/23 Chloride 103 mmol/L (96-108) 09/07/23 Carbon Dioxide 27 mmol/L (22-29) 09/07/23 BUN 25 mg/dL (9-16) H 09/07/23 Creatinine 1.31 mg/dL (0.5-1.4) 09/07/23 Calcium 9.9 mg/dL (8.4-10.2) 09/07/23 Urine Creatinine 124.55 mg/dL 09/07/23 Protein/Creatinin Ratio 0.15 (<0.2) 09/07/23
[2023-09-18 13:16] VITALS: BP 150/80; PULSE 70; O2SAT 98; BMI 30.2
== END 2023-09-18 13:36 | disposition home or self-care (01) ==
PROVIDERS: PCP Internal Medicine; Visit Provider Internal Medicine Hypertension Specialist
DX: I12.9 Hypertensive chronic kidney disease with stage 1 through stage 4 chronic kidney disease, or unspecified chronic kidney disease (principal)
CPT/HCPCS: 99213

== ENCOUNTER → 2023-09-18 13:13 | Outpatient (BNVA) | payer MEDICARE, SELFPAY | PROVIDERS: PCP Internal Medicine; Visit Provider Internal Medicine Hypertension Specialist | DX: I12.9 Hypertensive chronic kidney disease with stage 1 through stage 4 chronic kidney disease, or unspecified chronic kidney disease (principal); N18.9 Chronic kidney disease, unspecified | CPT/HCPCS: 99212 ==

== ENCOUNTER 2023-10-10 12:02 | Outpatient (REF) | payer MEDICARE, SELFPAY ==
[2023-10-10 13:41] LABS: Blood Urea Nitrogen 25 mg/dL (9-16); Estimated Glomerular Filt Rate 39
== END 2023-10-10 12:03 | disposition home or self-care (01) ==
LOC: HO.10HDL 12:02
PROVIDERS: Visit Provider Surgery
DX: R91.1 Solitary pulmonary nodule (principal); F17.200 Nicotine dependence, unspecified, uncomplicated
CPT/HCPCS: 36415; 82565; 84520

== ENCOUNTER 2023-10-17 09:48 | Outpatient (REF) | payer MEDICARE, SELFPAY ==
--- NOTE | ~2023-10-17 | CT_ITS ---
EXAMINATION: CT CHEST WITH CONTRAST CLINICAL INFORMATION: Pulmonary nodule. COMPARISON: CT chest 07/18/2023: New 1.9 x 1.1 x 1.1 cm part solid nodule with amorphous solid component measuring 9 mm. This has a peribronchial distribution and may be inflammatory. This chest CT was not ordered as a lung cancer screening CT, but this nodule is a suspicious finding and is considered Lung-RADs 4B. Because this is potentially infectious/inflammatory, short-term chest CT follow up in one month is recommended. Renal ultrasound 02/03/2022. TECHNIQUE: Multidetector volumetric CT imaging of the chest was obtained after the administration of 65 mL of Omnipaque 350 intravenous contrast without immediate adverse reactions. Axial MIP volume rendering provided. Sagittal and coronal reformatted images were obtained. This CT examination was performed using dose optimization techniques as appropriate, variously including the following: *Automated exposure control *Adjustment of mA and/or kV according to patient size (this includes techniques or standardized protocols for targeted exams where dose is matched to indication/reason for exam; i.e. extremities or head) *Use of iterative reconstruction technique DLP: 112 mGy-cm FINDINGS: LUNGS: The lingular nodule previously noted is unchanged in size measuring about 1.1 x 0.9 cm (7:92 compare prior 7:282). The previously seen new left lower lobe irregular mass that measured 1.9 x 1.1 x 1.1 cm on the prior study has completely resolved with some minimal residual ground-glass changes the largest area measuring 0.9 x 0.5 cm (7:129). Some other tiny sub-4 mm micronodules are unchanged (see antoine images). MEDIASTINUM: Heart size normal. Coronary artery calcium is present. No mediastinal or hilar lymphadenopathy. PLEURA: There is no pleural effusion. No pleural mass or thickening. AXILLA: No lymphadenopathy. UPPER ABDOMEN: Moderate-sized hiatal hernia is seen. Bosniak class one Bosniak class II cysts are present which need no additional imaging or followup. OSSEOUS STRUCTURES: Marked degenerative changes are seen in the lower thoracic and visualized lumbar spine. No bony destructive lesions. CT/CT chest w IV con IMPRESSION: 1. The previously seen new left lower lobe irregular mass has completely resolved with some minimal residual groundglass changes. This was therefore inflammatory and not neoplastic. 2. The previously seen stable lingular nodule is unchanged. 3. Other tiny micronodules are unchanged. 4. Incidental note made of moderate-sized hiatal hernia and degenerative changes in the spine. Fleischner guidelines were followed.
[2023-10-17] MEDS: iohexoL 350 MG/ML 100 ML INFUS..BTL IV (10:14)
== END 2023-10-17 09:49 | disposition home or self-care (01) ==
LOC: HO.CT 09:48
PROVIDERS: PCP Internal Medicine; Visit Provider Surgery
DX: R91.1 Solitary pulmonary nodule (principal)
CPT/HCPCS: 71260; Q9967

== ENCOUNTER 2023-10-30 11:34 | Outpatient (REF) | payer MEDICARE, SELFPAY ==
--- NOTE | ~2023-10-30 | XR_ITS ---
EXAMINATION: XR KNEE, RIGHT CLINICAL INFORMATION: Chronic right knee pain COMPARISON: 11/18/2020 TECHNIQUE: Four views of the right knee. FINDINGS: Tricompartment spurring. Mild medial and moderate lateral knee and patellofemoral joint space narrowings. Small suprapatellar effusion. No fracture or dislocation. Vascular calcifications. XR/XR knee RT 2V IMPRESSION: Degenerative type changes. Small suprapatellar effusion.
== END 2023-10-30 11:35 | disposition home or self-care (01) ==
LOC: HO.XRAY 11:34
PROVIDERS: PCP Internal Medicine; Visit Provider Surgery
DX: R91.1 Solitary pulmonary nodule (principal); M25.561 Pain in right knee; Z79.899 Other long term (current) drug therapy
CPT/HCPCS: 73560; 99212

== ENCOUNTER 2023-10-30 11:34 | Outpatient (AMB) | payer MEDICARE, SELFPAY ==
[2023-10-30 11:40] VITALS: BP 150/80; PULSE 76
--- NOTE | 2023-10-30 11:40 | A.OFFVIS_ITS ---
Intake Vital Signs 10/30/23 11:40 Weight 189 lb BP 150/80 H Blood Pressure Location Lt brachial Position Sitting Pulse 76 Intake Visit Reasons: Lesion of left lung, CT results Intake Note: Patient here to discuss chest CT on 10-17-23 results. Director Digital Sales Required: No Accompanied by: Self / Same As Patient Allergies No Known Allergies Allergy (Unknown, Verified 10/30/23 11:41) N/A Medication List - Last Reconciled 10/30/23 by Dinesh Farr MD albuterol sulfate 90 mcg/actuation 2 puffs PO Q4H PRN biotin 1 mg PO DAILY calcium carbonate (Calcium 500) 500 mg PO DAILY cholecalciferol (vitamin D3) 50 mcg PO DAILY esomeprazole magnesium 20 mg PO DAILY fluoxetine 20 mg PO DAILY levothyroxine 137 mcg PO DAILY ondansetron HCl mg PO PRN simvastatin 40 mg PO DAILY Spiriva with HandiHaler (tiotropium bromide) 1 cap PO DAILY NS spironolacton-hydrochlorothiaz 25-25 mg 1 tab PO DAILY HPI HPI Comments History of Present Illness Details Patient presents for follow-up for lung CT review for left lung lesion. Scan demonstrates complete resolution of the left lung process. This case was also reviewed the lung cancer screening clinic. Patient has no new respiratory issues or complaints. She is attempting to discontinue smoking. [facility] Medical History Smoker Failed back syndrome of lumbar spine Hypertension Depression Hypertensive CKD (chronic kidney disease) Personal history of nicotine dependence Hyperlipidemia Obesity COPD (chronic obstructive pulmonary disease) Hypothyroidism Surgical History History of cataract surgery (~2015) History of breast biopsy History of lumbar fusion (~2006) History of excision of mass Venous insufficiency (~2015) History of carpal tunnel release (~2011) Family History Father Renal failure Mother Renal failure Brother Diabetes Social History Housing: House Alcohol intake: current Alcohol intake frequency: holidays/special occasions only Patient Tobacco Use Status: Current everyday Tobacco user Tobacco use type: Cigarette Cigarette Packs Per Day: 1 Cigarettes Per Day: 15 e-Cigarette/Vaping Use: Never Used Second Hand Smoke Exposure: Yes service: No Current occupational status: retired Current occupation: right handed Cognitive needs: No Hearing needs: No Vision needs: Yes (reading glasses) Physical Exam Vital Signs: Last Vital Signs Pulse 76 10/30/23 11:40 BP 150/80 H 10/30/23 11:40 Chest Other: Status quo Assessment & Plan Assessment & Plan (1) Lesion of left lung: Code(s): R91.1 - Solitary pulmonary nodule Plan: Current plan is to repeat CT scan screening in 1 year's time. Patient will see me after this study or p.r.n.. All questions answered. Orders: Orders CT chest wo con - High Res 11 Months R91.1 - Solitary pulmonary nodule Coding Level of Care Code Est Pt Level 4 (97680) Diagnoses Lesion of left lung R91.1
== END 2023-10-30 11:43 | disposition home or self-care (01) ==
PROVIDERS: PCP Internal Medicine; Visit Provider Surgery
DX: R91.1 Solitary pulmonary nodule (principal)
CPT/HCPCS: 99214

== ENCOUNTER 2023-11-09 13:48 | Outpatient (AMB) | payer MEDICARE, SELFPAY ==
[2023-11-09 13:49] VITALS: BMI 30.5
--- NOTE | 2023-11-09 13:49 | MHC.OFFVIS ---
Intake Vital Signs 11/09/23 13:49 Height 5 ft 6 in Weight 189 lb BMI 30.5 Intake Visit Reasons: OV-right knee pain Intake Note: Kaya is a 73 year old female who present for Right knee pain. The patient describes her pain as sharp in nature. Her pain has gotten worse over the last few years in spite of continued non operative treatments. She has had cortisone injection therapy which gave her minimal relief. She has taken Tylenol which gives her only mild relief. She is not able to take anti-inflammatory medicines because of renal problems. She has done physical therapy exercises which aggravated her pain. She wishes to hold off on surgery for as long possible. Allergies No Known Allergies Allergy (Unknown, Verified 11/09/23 14:01) N/A Medication List - Last Reconciled 11/09/23 by Han Suarez MD albuterol sulfate 90 mcg/actuation 2 puffs PO Q4H PRN biotin 1 mg PO DAILY calcium carbonate (Calcium 500) 500 mg PO DAILY cholecalciferol (vitamin D3) 50 mcg PO DAILY esomeprazole magnesium 20 mg PO DAILY fluoxetine 20 mg PO DAILY levothyroxine 137 mcg PO DAILY ondansetron HCl mg PO PRN simvastatin 40 mg PO DAILY Spiriva with HandiHaler (tiotropium bromide) 1 cap PO DAILY NS spironolacton-hydrochlorothiaz 25-25 mg 1 tab PO DAILY PFSH Medical History Smoker Failed back syndrome of lumbar spine Hypertension Depression Hypertensive CKD (chronic kidney disease) Personal history of nicotine dependence Hyperlipidemia Obesity COPD (chronic obstructive pulmonary disease) Hypothyroidism Surgical History History of cataract surgery (~2015) History of breast biopsy History of lumbar fusion (~2006) History of excision of mass Venous insufficiency (~2015) History of carpal tunnel release (~2011) Family History Father Renal failure Mother Renal failure Brother Diabetes Social History Housing: House Alcohol intake: current Alcohol intake frequency: holidays/special occasions only Patient Tobacco Use Status: Current everyday Tobacco user Tobacco use type: Cigarette Cigarette Packs Per Day: 1 Cigarettes Per Day: 15 e-Cigarette/Vaping Use: Never Used Second Hand Smoke Exposure: Yes service: No Current occupational status: retired Current occupation: right handed Cognitive needs: No Hearing needs: No Vision needs: Yes (reading glasses) Physical Exam Vital Signs: BMI result Body Mass Index 30.5 Const Other: Well-nourished well-developed very friendly female awake alert and oriented x3 in no acute distress Extrem Other: Bilateral lower extremity examination shows good capillary refill, no skin lesions noted, normal sensation light touch Right knee examination shows a minimal effusion, palpable crepitus with range of motion, pain with range of motion, range of motion from -3 degrees to 115 degrees, no instability Results Reviewed Results Reviewed: X-rays of the patient's right knee show moderate to severe joint space narrowing, subchondral sclerosis, no acute bony abnormalities Assessment & Plan Assessment & Plan (1) Arthritis of right knee: Code(s): M17.11 - Unilateral primary osteoarthritis, right knee Plan Ms. Young presents with right knee pain due to degenerative joint disease. I had a lengthy discussion with the patient regarding the treatment options. She wishes to hold off on surgery for as long as possible. I agree with this plan. The patient has not gotten good relief from cortisone injections in the past. Thus, I will see whether not the patient's insurance company will cover a viscosupplementation injection. I will see her back once the injection is available. Feel free to call me at any time should questions regarding her orthopedic management arise. Thank you very much for asking me to see this very friendly patient. I spent 20 minutes in reviewing the patient's records and imaging studies, seeing the patient and documenting in the medical record. Coding Level of Care Code Est Pt Level 2 (16424) Diagnoses Arthritis of right knee M17.11
== END 2023-11-09 14:19 | disposition home or self-care (01) ==
PROVIDERS: PCP Internal Medicine; Visit Provider Orthopaedic Surgery
DX: M17.11 Unilateral primary osteoarthritis, right knee (principal)
CPT/HCPCS: 99213

== ENCOUNTER → 2023-11-09 13:48 | Outpatient (BNVA) | payer MEDICARE, SELFPAY | PROVIDERS: PCP Internal Medicine; Visit Provider Orthopaedic Surgery | DX: M17.11 Unilateral primary osteoarthritis, right knee (principal) | CPT/HCPCS: 99212 ==

== ENCOUNTER 2023-12-05 10:19 | Outpatient (AMB) | payer MEDICARE, SELFPAY ==
[2023-12-05 10:20] VITALS: BMI 30.5
--- NOTE | 2023-12-05 10:20 | MHC.OFFVIS ---
Intake Vital Signs 12/05/23 10:20 Height 5 ft 6 in Weight 189 lb BMI 30.5 Intake Visit Reasons: OV- Right knee Durolane injection Intake Note: Swathi is a 73 year old female who presents for her Right knee Durolane gel injection. She describes her right knee pain as sharp in nature. She would like to hold off on surgery for as long as possible. She has tried Tylenol and anti-inflammatory medicines which gave her minimal relief. She has done physical therapy exercises which aggravated her pain. Allergies No Known Allergies Allergy (Unknown, Verified 12/05/23 10:33) N/A Medication List - Last Reconciled 12/06/23 by Han Suarez MD albuterol sulfate 90 mcg/actuation 2 puffs PO Q4H PRN biotin 1 mg PO DAILY calcium carbonate (Calcium 500) 500 mg PO DAILY cholecalciferol (vitamin D3) 50 mcg PO DAILY esomeprazole magnesium 20 mg PO DAILY fluoxetine 20 mg PO DAILY levothyroxine 137 mcg PO DAILY ondansetron HCl mg PO PRN simvastatin 40 mg PO DAILY Spiriva with HandiHaler (tiotropium bromide) 1 cap PO DAILY NS spironolacton-hydrochlorothiaz 25-25 mg 1 tab PO DAILY PFSH Medical History Smoker Failed back syndrome of lumbar spine Hypertension Depression Hypertensive CKD (chronic kidney disease) Personal history of nicotine dependence Hyperlipidemia Obesity COPD (chronic obstructive pulmonary disease) Hypothyroidism Surgical History History of cataract surgery (~2015) History of breast biopsy History of lumbar fusion (~2006) History of excision of mass Venous insufficiency (~2015) History of carpal tunnel release (~2011) Family History Father Renal failure Mother Renal failure Brother Diabetes Social History Housing: House Alcohol intake: current Alcohol intake frequency: holidays/special occasions only Patient Tobacco Use Status: Current everyday Tobacco user Tobacco use type: Cigarette Cigarette Packs Per Day: 1 Cigarettes Per Day: 15 e-Cigarette/Vaping Use: Never Used Second Hand Smoke Exposure: Yes service: No Current occupational status: retired Current occupation: right handed Cognitive needs: No Hearing needs: No Vision needs: Yes (reading glasses) Physical Exam Vital Signs: BMI result Body Mass Index 30.5 Const Other: Well-nourished well-developed very friendly female awake alert and oriented x3 in no acute distress Extrem Other: Bilateral lower extremity examination shows good capillary refill, no skin lesions noted, normal sensation light touch Right knee examination shows a minimal effusion, palpable crepitus with range of motion, pain with range of motion, range of motion from -3 degrees to 115 degrees, no instability Office Procedures Joint Injection/Drain Joint Injection/Drain Primary Site: right knee Prep: site was prepped using aseptic technique Injected: 60 mg of (Durolane viscosupplementation) and 1% plain lidocaine Procedure: The patient tolerated the procedure well Coding - Large joint Procedure code (CPT) selection complete Results Reviewed Results Reviewed: X-rays of the patient's right knee show joint space narrowing, subchondral sclerosis, no acute bony abnormalities Assessment & Plan Assessment & Plan (1) Arthritis of right knee: Code(s): M17.11 - Unilateral primary osteoarthritis, right knee Plan Ms. Young presents with right knee pain due to degenerative joint disease. I had a lengthy discussion patient regarding the treatment options. She wishes hold off on surgery for as long as possible. I agree with this plan. The patient has not gotten good relief from cortisone injections in the past. The risks and benefits of a right knee Durolane viscosupplementation injection were discussed at length with the patient. The patient wished to proceed. She tolerated the injection well. She will continue with her home exercise program. She will follow up with me on an as-needed basis should her symptoms not plateau at an unacceptable level over the next few months. Feel free to call me at any time should questions regarding her orthopedic management arise. I spent 22 minutes in reviewing the patient's records and imaging studies, seeing the patient and documenting in the medical record. Orders: Orders AMB Joint Injection/Aspiration 12/05/23 M17.11 - Unilateral primary osteoarthritis, right knee Coding Level of Care Code Est Pt Level 2 (95101) Diagnoses Arthritis of right knee M17.11 CPT Codes Coding - Large joint: 18868 - Large joint ([id number])
== END 2023-12-05 11:09 | disposition home or self-care (01) ==
PROVIDERS: PCP Internal Medicine; Visit Provider Orthopaedic Surgery
DX: M17.11 Unilateral primary osteoarthritis, right knee (principal)
CPT/HCPCS: 20610

== ENCOUNTER → 2023-12-05 10:19 | Outpatient (BNVA) | payer MEDICARE, SELFPAY | PROVIDERS: PCP Internal Medicine; Visit Provider Orthopaedic Surgery | DX: M17.11 Unilateral primary osteoarthritis, right knee (principal) | CPT/HCPCS: 20610; J7318; J7323 ==

== ENCOUNTER 2023-12-19 11:33 | Outpatient (AMB) | payer MEDICARE, SELFPAY ==
[2023-12-19 11:37] VITALS: BP 140/58; BMI 29.9
--- NOTE | 2023-12-19 11:37 | MHC.PC.OV ---
Vital Signs 12/19/23 11:37 Height 5 ft 6 in Weight 185 lb BMI 29.9 BP 140/58 H Blood Pressure Location Lt brachial Position Sitting Pulse Source Pulse Oximeter Oxygen Delivery Method Room Air Intake Visit Reasons: 3 month f/u It Program Auditor Required: No Centrifuge Operator: Not Required per policy Accompanied by: Self / Same As Patient Allergies No Known Allergies Allergy (Unknown, Verified 12/19/23 11:37) N/A Medication List - Last Reconciled 12/20/23 by Viral Dawson MD albuterol sulfate 90 mcg/actuation 2 puffs PO Q4H PRN biotin 1 mg PO DAILY calcium carbonate (Calcium 500) 500 mg PO DAILY cholecalciferol (vitamin D3) 50 mcg PO DAILY esomeprazole magnesium 20 mg PO DAILY fluoxetine 20 mg PO DAILY levothyroxine 137 mcg PO DAILY ondansetron HCl mg PO PRN simvastatin 40 mg PO DAILY Spiriva with HandiHaler (tiotropium bromide) 1 cap PO DAILY NS spironolacton-hydrochlorothiaz 25-25 mg 1 tab PO DAILY Tobacco use date assessed: 12/19/23 Fall risk assessment: No Falls in past year Last assessed Fall Risk: 12/19/23 Dental Screening Dental Screen Date: 12/19/23 Did you have a dental visit in the last 12 months?: Yes Did you have a dental problem in the last 6 months where you did not have access to dental care?: No Was dental information given to patient?: Patient has dentist HPI 3 month f/u HPI Details copd hypothyr and hyperlip on rx; doing well and compliant [facility] Medical History Smoker Failed back syndrome of lumbar spine Hypertension Depression Hypertensive CKD (chronic kidney disease) Personal history of nicotine dependence Hyperlipidemia Obesity COPD (chronic obstructive pulmonary disease) Hypothyroidism Surgical History History of cataract surgery (~2015) History of breast biopsy History of lumbar fusion (~2006) History of excision of mass Venous insufficiency (~2015) History of carpal tunnel release (~2011) Family History Father Renal failure Mother Renal failure Brother Diabetes Social History Housing: House Alcohol intake: current Alcohol intake frequency: holidays/special occasions only Patient Tobacco Use Status: Current everyday Tobacco user Tobacco use type: Cigarette Cigarette Packs Per Day: 1 Cigarettes Per Day: 15 e-Cigarette/Vaping Use: Never Used Second Hand Smoke Exposure: Yes service: No Current occupational status: retired Current occupation: right handed Cognitive needs: No Hearing needs: No Vision needs: Yes (reading glasses) Questionnaire PHQ-9 Over the last 2 weeks, how often have you been bothered by any of the following problems? 1. Little interest or pleasure in doing things: not at all 2. Feeling down, depressed, or hopeless: not at all 3. Trouble falling or staying asleep, or sleeping too much: not at all 4. Feeling tired or having little energy: not at all 5. Poor appetite or overeating: not at all 6. Feeling bad about yourself - or that you are a failure or have let yourself or your family down: not at all 7. Trouble concentrating on things, such as reading the newspaper or watching television: not at all 8. Moving or speaking so slowly that other people could have noticed. Or the opposite - being so fidgety or restless that you have been moving around a lot more than usual: not at all 9. Thoughts that you would be better off or of hurting yourself in some way: not at all Total score: 0 Depression Screening Interpretation: Negative Depression Screening Done: Yes 92473 - PHQ-9 Billing: Yes Source: Developed by Drs. Ketan Kramer, Sushila Sorto, Conor Foley and colleagues, with an educational logan from [employer]. Thrive Questionnaire Date Thrive assessed: 12/19/23 I am a: Patient What is your living situation today?: I have a steady place to live Within the past 12 months, did the food you bought not last and you didn't have the money to get more?: Never true Within the past 12 months, did you worry whether your food would run out before you got money to buy more?: Never true Do you have trouble paying for medicines?: No Do you have trouble getting transportation to medical appointments?: No Do you have trouble paying your heating and electricity bill?: No Do you have trouble taking care of your child, family member or friend?: No Do you have trouble with day-to-day activities such as bathing, preparing meals, shopping, managing finances, etc.?: No Are you currently unemployed and looking for a job?: No Are you interested in more education?: No Please select the resources that you would like help with: None THRIVE Score: 0 AUDIT C Alcohol Use Questionnaire (AUDIT-C) 1. How often do you have a drink containing alcohol?: Never 3. How often do you have six or more drinks on one occasion?: Never Total Score: 0 Score Reviewed/Action Taken: Yes KINGSLEY-7 AMB Questionnaire KINGSLEY-7 Date KINGSLEY - 7 assessed: 12/19/23 Feeling nervous, anxious, or on edge: 0 = Not at all Not being able to stop or control worryin = Not at all Worrying too much about different things: 0 = Not at all Trouble relaxin = Not at all Being so restless that it is hard to sit still: 0 = Not at all Becoming easily annoyed or irritable: 0 = Not at all Feeling afraid as if something awful might happen: 0 = Not at all Total KINGSLEY-7 score (0-4 normal; 5-9 mild; 10-14 moderate; 15-21 severe): 0 Source: Developed by Drs. Ketan Kramer, Sushila Sorto, Conor Foley and colleagues, with an educational logan from [employer]. Review of Systems Const Denies chills, Denies headache(s) and Denies weight loss ENT Denies headache(s) Card Denies chest pain, Denies syncope, Denies irregular heart rhythm and Denies dyspnea Resp Denies chest congestion, Denies cough and Denies dyspnea GI Denies abdominal pain, Denies change in stool character, Denies nausea and Denies vomiting Musc Denies deformity and Denies joint swelling Neuro Denies syncope and Denies headache(s) Physical exam (Primary Care) Vital Signs: Last Vital Signs BP 140/58 H 12/19/23 11:37 Oxygen Delivery Method Room Air 12/19/23 11:37 BMI result Body Mass Index 29.9 Tobacco/Smoking Status: Tobacco use Status Tobacco use date assessed 12/19/23 12/19/23 11:38 Patient Tobacco Use Status Current everyday Tobacco 12/19/23 11:38 Tobacco use type Cigarette 12/19/23 11:38 e-Cigarette/Vaping Use Never Used 12/19/23 11:38 PHQ-9: PHQ-9 Score PHQ-9: Total score 0 12/19/23 11:38 Depression Screening Interpretation: Negative Thrive Assessment: Date of Thrive Assessment Date Thrive assessed 12/19/23 12/19/23 11:38 Const General: cooperative, comfortable, no acute distress and alert Neck Neck: Yes no lymphadenopathy Thyroid: Thyroid normal Resp Effort & Inspection: normal respiratory effort Auscultation: clear to auscultation bilaterally Percussion: percussion normal Cardio Jugular venous distension: no JVD Palpation: normal PMI Rate: regular rate Rhythm: regular rhythm Heart sounds: S1 normal heart sound present and S2 normal heart sound present GI Inspection: Yes normal to inspection Palpation (GI): No hepatosplenomegaly present Skin General skin exam: no rashes or lesions noted Extrem General: Yes no clubbing, cyanosis or edema Assessment and Plan Assessment & Plan (1) COPD (chronic obstructive pulmonary disease): Code(s): J44.9 - Chronic obstructive pulmonary disease, unspecified Plan: stable ;same rx (2) Hyperlipidemia: Code(s): E78.5 - Hyperlipidemia, unspecified Plan: stable; same rx (3) Hypothyroidism: Code(s): E03.9 - Hypothyroidism, unspecified Plan: stable; same rx Orders: Orders Thyroid Stimulating Hormone Today E03.9 - Hypothyroidism, unspecified Lipid Panel Today E78.5 - Hyperlipidemia, unspecified Coding Level of Care Code Est Pt Level 4 (21831) Diagnoses COPD (chronic obstructive pulmonary disease) J44.9 Hyperlipidemia E78.5 Hypothyroidism E03.9
== END 2023-12-19 11:52 | disposition home or self-care (01) ==
PROVIDERS: PCP Internal Medicine; Visit Provider Internal Medicine
DX: J44.9 Chronic obstructive pulmonary disease, unspecified (principal); E78.5 Hyperlipidemia, unspecified; E03.9 Hypothyroidism, unspecified
CPT/HCPCS: 99214

== ENCOUNTER 2024-01-02 10:48 | Outpatient (REF) | payer MEDICARE, SELFPAY ==
[2024-01-02 13:29] LABS: Anion Gap 17 (12-20); Blood Urea Nitrogen 27 mg/dL (9-16); Calcium 10.1 mg/dL (8.4-10.2); Carbon Dioxide 25 mmol/L (22-29); Chloride 103 mmol/L (96-108); Cholesterol 175 mg/dL (<200); Estimated Glomerular Filt Rate 38; HDL Cholesterol 66 mg/dL (>40); LDL Cholesterol Calculated 93 mg/dL (<100); Potassium 4.4 mmol/L (3.3-5.1); Sodium 141 mmol/L (135-145); Thyroid Stimulating Hormone 0.71 uIU/mL (0.32-4.0); Triglycerides 83 mg/dL (<150)
== END 2024-01-02 10:49 | disposition home or self-care (01) ==
LOC: HO.LAB 10:48
PROVIDERS: Absent Provider Internal Medicine Hypertension Specialist; PCP Internal Medicine; Visit Provider Internal Medicine
DX: E03.9 Hypothyroidism, unspecified (principal); E78.5 Hyperlipidemia, unspecified; I12.9 Hypertensive chronic kidney disease with stage 1 through stage 4 chronic kidney disease, or unspecified chronic kidney disease; N18.9 Chronic kidney disease, unspecified; J44.9 Chronic obstructive pulmonary disease, unspecified; F17.210 Nicotine dependence, cigarettes, uncomplicated; R91.1 Solitary pulmonary nodule; Z79.899 Other long term (current) drug therapy
CPT/HCPCS: 36415; 80051; 80061; 82310; 82565; 84443; 84520; 99212

== ENCOUNTER 2024-01-02 10:48 | Outpatient (AMB) | payer MEDICARE, SELFPAY ==
[2024-01-02 10:58] VITALS: BP 120/68; PULSE 61; O2SAT 100; BMI 29.7
--- NOTE | 2024-01-02 10:58 | A.OFFVIS_ITS ---
Intake Vital Signs 01/02/24 10:58 Height 5 ft 6 in Weight 184 lb 1.376 oz BMI 29.7 BP 120/68 Blood Pressure Location Lt brachial Position Sitting Pulse 61 Pulse Source Pulse Oximeter Pulse Oximetry (%) 100 Oxygen Delivery Method Room Air Intake Visit Reasons: COPD Intake Note: pt is here for follow up and states she does have a cough and some shortness of breath, she does use her inhaler when wheeze occurs. Chemistry Instructor Required: No Allergies No Known Allergies Allergy (Unknown, Verified 01/02/24 11:14) N/A Medication List - Last Reconciled 01/02/24 by Guera Herrera MD albuterol sulfate 90 mcg/actuation 2 puffs PO Q4H PRN biotin 1 mg PO DAILY calcium carbonate (Calcium 500) 500 mg PO DAILY cholecalciferol (vitamin D3) 50 mcg PO DAILY esomeprazole magnesium 20 mg PO DAILY fluoxetine 20 mg PO DAILY levothyroxine 137 mcg PO DAILY ondansetron HCl mg PO PRN simvastatin 40 mg PO DAILY Spiriva with HandiHaler (tiotropium bromide) 1 cap PO DAILY NS spironolacton-hydrochlorothiaz 25-25 mg 1 tab PO DAILY Do you need a note to return to daycare/school/sports/work: No HPI COPD HPI Details 73 YEARS OLD VERY PLEASANT FEMALE IS HER E FOR 6 MONTHS FOLLOW-UP FOR HER COPD. SHE HAS HAD VERY FEW SYMPTOMS, DURING THE WINTER MONTHS SHE HAS HAD NO RESPIRATORY INFECTION. CONTINUES TO USE SPIRIVA HANDIHALER 1 INHALATION DAILY. AND SHE NEEDS TO USE THE RESCUE INHALER ONLY ONCE IN A WHILE. SHE WALKS AROUND AND GOES OUTDOORS WITHOUT MUCH PROBLEM. STILL SMOKING ABOUT 15 CIGARETTES A DAY [facility] Medical History Smoker Failed back syndrome of lumbar spine Hypertension Depression Hypertensive CKD (chronic kidney disease) Personal history of nicotine dependence Hyperlipidemia Obesity COPD (chronic obstructive pulmonary disease) Hypothyroidism Surgical History History of cataract surgery (~2015) History of breast biopsy History of lumbar fusion (~2006) History of excision of mass Venous insufficiency (~2015) History of carpal tunnel release (~2011) Family History Father Renal failure Mother Renal failure Brother Diabetes Social History Housing: House Alcohol intake: current Alcohol intake frequency: holidays/special occasions only Patient Tobacco Use Status: Current everyday Tobacco user Tobacco use type: Cigarette Cigarette Packs Per Day: 1 Cigarettes Per Day: 15 e-Cigarette/Vaping Use: Never Used Second Hand Smoke Exposure: Yes service: No Current occupational status: retired Current occupation: right handed Cognitive needs: No Hearing needs: No Vision needs: Yes (reading glasses) Review of Systems Const All systems reviewed & are unremarkable except as noted in HPI and below ENT Reports no additional complaints Card Denies chest pain, Denies irregular heart rhythm and Denies leg edema Resp Reports as per HPI GI Reports heartburn (Controlled with med) Reports no additional complaints Musc Reports no additional complaints Skin/Breast Reports system reviewed and no additional complaints, except as documented Neuro Reports no additional complaints Psych Reports depression (Controlled with med) Endo Reports other (Thyroid controlled with med) Aller/Immun Reports no additional complaints Physical Exam Vital Signs: Last Vital Signs Pulse 61 01/02/24 10:58 BP 120/68 01/02/24 10:58 Pulse Ox 100 01/02/24 10:58 Oxygen Delivery Method Room Air 01/02/24 10:58 BMI result Body Mass Index 29.7 Const General: comfortable, no acute distress, alert and awake Orientation/consciousness: patient oriented x3 HEENT Head: Yes normal to inspection General nose exam: No nasal polyps present and No nasal discharge present Face and sinus: Yes sinuses nontender Mouth: oropharynx normal Throat: Yes posterior oropharynx normal Eyes General: appearance normal, both eyes and all related structures Neck Neck: Yes normal visual inspection, Yes no lymphadenopathy, Yes trachea midline and Yes no JVD Thyroid: Thyroid normal Chest Chest palpation & inspection: normal inspection of the chest, normal palpation of entire chest wall and no tenderness Resp Other: Percussion note resonant, breath sounds are distant with prolonged expiratory phase. But no crepitations or wheezes are heard. Cardio Palpation: normal PMI Rate: regular rate Rhythm: regular rhythm Heart sounds: no gallops and no murmurs GI Palpation (GI): Soft to palpation, nontender, No hepatosplenomegaly present and no masses Auscultation: normal bowel sounds Back/Spine/Pelvis Thoracic/Lumbar Spine: thoracic and lumbar spine normal to inspection Skin General skin exam: no rashes or lesions noted Neuro General: patient oriented x3 and no focal motor deficits Cranial nerves: Yes CN's II-XII intact bilaterally Extrem General: Yes normal to inspection, Yes no clubbing, cyanosis or edema and Yes no calf tenderness Psych Appearance: grossly normal and well kempt Speech and movement: Normal speech and movement present Assessment & Plan Assessment & Plan (1) COPD (chronic obstructive pulmonary disease): Comment: MODERATELY SEVERE, STABLE AND SEEMES TO BE WELL CONTROLLED. Code(s): J44.9 - Chronic obstructive pulmonary disease, unspecified Plan: SPIRIVA HANDIHALER 1 INHALATION DAILY ALBUTEROL HFA 2 PUFFS Q 4-6 HOURS ONLY P.R.N. (2) Smoker: Comment: Unfortunately patient resumed smoking last year after the of 1 of her friends. She has difficulty in quitting. STILL SMOKING ABOUT 15 CIGARETTES A DAY. Code(s): F17.200 - Nicotine dependence, unspecified, uncomplicated Plan: Discussed with her again and advised to keep on cutting down the cigarettes. (3) Pulmonary nodule: Comment: (6x10mm MASON nodule on 10/29/21 LDCT) last LDCT on 05/20/22 ,No new change . Patient is being followed very closely by Annual Lung Screening team . Code(s): R91.1 - Solitary pulmonary nodule Plan: Continue to participate in the annual lung screening program. Coding Level of Care Code Est Pt Level 3 (62692) Diagnoses COPD (chronic obstructive pulmonary disease) J44.9 Smoker F17.200 Pulmonary nodule R91.1
== END 2024-01-02 11:19 | disposition home or self-care (01) ==
PROVIDERS: PCP Internal Medicine; Visit Provider Internal Medicine
DX: J44.9 Chronic obstructive pulmonary disease, unspecified (principal); F17.200 Nicotine dependence, unspecified, uncomplicated; R91.1 Solitary pulmonary nodule
CPT/HCPCS: 99213

== ENCOUNTER 2024-01-18 11:37 | Outpatient (AMB) | payer MEDICARE, SELFPAY ==
--- NOTE | 2024-01-18 11:39 | HO.NEPHOV ---
HPI HPI Comments History of Present Illness Details 73 yr old woman with h/o smoking and HTN with CKD Here for semiannual follow up Continues to smoke 1PPD PFSH Medical History Smoker Failed back syndrome of lumbar spine Hypertension Depression Hypertensive CKD (chronic kidney disease) Personal history of nicotine dependence Hyperlipidemia Obesity COPD (chronic obstructive pulmonary disease) Hypothyroidism Surgical History History of cataract surgery (~2015) History of breast biopsy History of lumbar fusion (~2006) History of excision of mass Venous insufficiency (~2015) History of carpal tunnel release (~2011) Family History Father Renal failure Mother Renal failure Brother Diabetes Social History Housing: House Alcohol intake: current Alcohol intake frequency: holidays/special occasions only Patient Tobacco Use Status: Current everyday Tobacco user Tobacco use type: Cigarette Cigarette Packs Per Day: 1 Cigarettes Per Day: 15 e-Cigarette/Vaping Use: Never Used Second Hand Smoke Exposure: Yes service: No Current occupational status: retired Current occupation: right handed Cognitive needs: No Hearing needs: No Vision needs: Yes (reading glasses) Vital Signs 01/18/24 11:40 Height 5 ft 6 in Weight 181 lb BMI 29.2 BP 144/80 H Blood Pressure Location Lt brachial Position Sitting Pulse 67 Pulse Source Pulse Oximeter Pulse Oximetry (%) 99 Oxygen Delivery Method Room Air Physical Exam Vital Signs: Last Vital Signs Pulse 67 01/18/24 11:40 BP 144/80 H 01/18/24 11:40 Pulse Ox 99 01/18/24 11:40 Oxygen Delivery Method Room Air 01/18/24 11:40 BMI result Body Mass Index 29.2 Const General: comfortable Nutritional Appearance: well nourished Orientation/consciousness: patient oriented x3 HEENT Head: No normal to inspection Mouth: moist mucous membranes Neck Neck: Yes supple and Yes no JVD Resp Auscultation: clear to auscultation bilaterally, no rales and rub present Cardio Jugular venous distension: no JVD Palpation: no palpable S3 and no palpable S4 Heart sounds: no rubs GI Palpation (GI): Soft to palpation and nontender Percussion: No Fluid wave present General: Yes no CVA tenderness Back/Spine/Pelvis Back: no CVA tenderness Skin General skin exam: no rashes or lesions noted Neuro General: patient oriented x3 Extrem General: Yes no pedal edema and No clubbing Assessment & Plan Assessment & Plan (1) Hypertensive CKD (chronic kidney disease): Code(s): I12.9 - Hypertensive chronic kidney disease with stage 1 through stage 4 chronic kidney disease, or unspecified chronic kidney disease Plan Elderly woman with CKD in a setting of HTN and obesity Creatinine is stable at baseline No proteinuria Goal to keep SBP < 140 Avoid nephrotoxins including NSAIDS Needs to stop smoking; Discussed with patient. Bilateral simple cysts in kidney NO further follow up has been recommended Mild anemia No indication for Epogen Coding Level of Care Code Est Pt Level 4 (73853) Diagnoses Hypertensive CKD (chronic kidney disease) I12.9 Results Reviewed Nephrology Results: Sodium 141 mmol/L (135-145) 01/02/24 Potassium 4.4 mmol/L (3.3-5.1) 01/02/24 Chloride 103 mmol/L (96-108) 01/02/24 Carbon Dioxide 25 mmol/L (22-29) 01/02/24 BUN 27 mg/dL (9-16) H 01/02/24 Creatinine 1.36 mg/dL (0.5-1.4) 01/02/24 Calcium 10.1 mg/dL (8.4-10.2) 01/02/24
[2024-01-18 11:40] VITALS: BP 144/80; PULSE 67; O2SAT 99; BMI 29.2
== END 2024-01-18 11:55 | disposition home or self-care (01) ==
PROVIDERS: PCP Internal Medicine; Visit Provider Internal Medicine Hypertension Specialist
DX: I12.9 Hypertensive chronic kidney disease with stage 1 through stage 4 chronic kidney disease, or unspecified chronic kidney disease (principal)
CPT/HCPCS: 99214

== ENCOUNTER → 2024-01-18 11:37 | Outpatient (BNVA) | payer MEDICARE, SELFPAY | PROVIDERS: PCP Internal Medicine; Visit Provider Internal Medicine Hypertension Specialist | DX: I12.9 Hypertensive chronic kidney disease with stage 1 through stage 4 chronic kidney disease, or unspecified chronic kidney disease (principal); N18.9 Chronic kidney disease, unspecified; F17.210 Nicotine dependence, cigarettes, uncomplicated | CPT/HCPCS: 99212 ==

== ENCOUNTER 2024-03-05 09:38 | Outpatient (AMB) | payer MEDICARE, SELFPAY ==
[2024-03-05 09:40] VITALS: BMI 29.2
--- NOTE | 2024-03-05 09:40 | MHC.OFFVIS ---
Vital Signs 03/05/24 09:40 Height 5 ft 6 in Weight 181 lb BMI 29.2 Intake Visit Reasons: OV- Right knee Durolane inj.-follow up Intake Note: Swathi is a 74 year old female who presents for a follow up after her Right knee Durolane gel injection on 12/05/2023. Patient reports it gave her very little relief. She does take Tylenol which gives her minimal relief. She states that she is not able to tolerate anti-inflammatory medicines. She states that her pain is not constant. She wishes to hold off on surgery for as long as possible. Allergies No Known Allergies Allergy (Unknown, Verified 03/05/24 09:42) N/A Medication List - Last Reconciled 03/05/24 by Han Suarez MD albuterol sulfate 90 mcg/actuation 2 puffs PO Q4H PRN biotin 1 mg PO DAILY calcium carbonate (Calcium 500) 500 mg PO DAILY cholecalciferol (vitamin D3) 50 mcg PO DAILY esomeprazole magnesium 20 mg PO DAILY fluoxetine 20 mg PO DAILY levothyroxine 137 mcg PO DAILY ondansetron HCl mg PO PRN simvastatin 40 mg PO DAILY Spiriva with HandiHaler (tiotropium bromide) 1 cap PO DAILY NS spironolacton-hydrochlorothiaz 25-25 mg 1 tab PO DAILY PFS Medical History Smoker Failed back syndrome of lumbar spine Hypertension Depression Hypertensive CKD (chronic kidney disease) Personal history of nicotine dependence Hyperlipidemia Obesity COPD (chronic obstructive pulmonary disease) Hypothyroidism Surgical History History of cataract surgery (~2015) History of breast biopsy History of lumbar fusion (~2006) History of excision of mass Venous insufficiency (~2015) History of carpal tunnel release (~2011) Family History Father Renal failure Mother Renal failure Brother Diabetes Social History Housing: House Alcohol intake: current Alcohol intake frequency: holidays/special occasions only Patient Tobacco Use Status: Current everyday Tobacco user Tobacco use type: Cigarette Cigarette Packs Per Day: 1 Cigarettes Per Day: 15 e-Cigarette/Vaping Use: Never Used Second Hand Smoke Exposure: Yes service: No Current occupational status: retired Current occupation: right handed Cognitive needs: No Hearing needs: No Vision needs: Yes (reading glasses) Physical Exam Vital Signs: BMI result Body Mass Index 29.2 Const Other: Well-nourished well-developed very friendly female awake alert and oriented x3 in no acute distress Extrem Other: Bilateral lower extremity examination shows good capillary refill, no skin lesions noted, normal sensation light touch Right knee examination shows a minimal effusion, minimal crepitus with range of motion, pain with range of motion, no instability Results Reviewed Results Reviewed: X-rays of the patient's right knee show joint space narrowing, subchondral sclerosis, osteophyte formation, no acute bony abnormalities Assessment & Plan Assessment & Plan (1) Arthritis of right knee: Code(s): M17.11 - Unilateral primary osteoarthritis, right knee Category: Medical Plan Ms. Young presents with right knee pain due to degenerative joint disease. I had a lengthy discussion with the patient regarding the treatment options. She wishes to hold off on right total knee replacement surgery for as long as possible. I agree with this plan. She will continue with her activity modifications. She will follow up with me on an as-needed basis should her symptoms worsen in any way. Feel free to call me at any time should questions regarding her orthopedic management arise. I spent 22 minutes in reviewing the patient's records and imaging studies, seeing the patient and documenting in the medical record. Coding Level of Care Code Est Pt Level 2 (36521) Diagnoses Arthritis of right knee M17.11
== END 2024-03-05 09:54 | disposition home or self-care (01) ==
PROVIDERS: PCP Internal Medicine; Visit Provider Orthopaedic Surgery
DX: M17.11 Unilateral primary osteoarthritis, right knee (principal)
CPT/HCPCS: 99213

== ENCOUNTER → 2024-03-05 09:38 | Outpatient (BNVA) | payer MEDICARE, SELFPAY | PROVIDERS: PCP Internal Medicine; Visit Provider Orthopaedic Surgery | DX: M17.11 Unilateral primary osteoarthritis, right knee (principal) | CPT/HCPCS: 99212 ==

== ENCOUNTER 2024-03-20 10:24 | Outpatient (AMB) | payer MEDICARE, SELFPAY ==
--- NOTE | 2024-03-20 10:28 | A.OFFPC_ITS ---
Vital Signs 03/20/24 10:30 Height 5 ft 6 in Weight 179 lb 4 oz BMI 28.9 BP 110/74 Blood Pressure Location Lt brachial Position Sitting Intake Visit Reasons: 3 Month F/U - see comments Intake Note: Patient is here to follow up on HTN, COPD. Sales Activity Manager Required: No Tube Test Technician: Not Required per policy Accompanied by: Self / Same As Patient Allergies No Known Allergies Allergy (Unknown, Verified 03/20/24 10:29) N/A Medication List - Last Reconciled 03/20/24 by Viral Dawson MD albuterol sulfate 90 mcg/actuation 2 puffs PO Q4H PRN biotin 1 mg PO DAILY calcium carbonate (Calcium 500) 500 mg PO DAILY cholecalciferol (vitamin D3) 50 mcg PO DAILY esomeprazole magnesium 20 mg PO DAILY fluoxetine 20 mg PO DAILY levothyroxine 137 mcg PO DAILY ondansetron HCl mg PO PRN simvastatin 40 mg PO DAILY Spiriva with HandiHaler (tiotropium bromide) 1 cap PO DAILY NS spironolacton-hydrochlorothiaz 25-25 mg 1 tab PO DAILY Tobacco use date assessed: 03/20/24 Fall risk assessment: No Falls in past year Last assessed Fall Risk: 03/20/24 Dental Screening Dental Screen Date: 12/19/23 HPI 3 Month F/U - see comments HPI Details hypothyr on rx; compliant; doing well; due for labs PFSH Medical History Smoker Failed back syndrome of lumbar spine Hypertension Depression Hypertensive CKD (chronic kidney disease) Personal history of nicotine dependence Hyperlipidemia Obesity COPD (chronic obstructive pulmonary disease) Hypothyroidism Surgical History History of cataract surgery (~2015) History of breast biopsy History of lumbar fusion (~2006) History of excision of mass Venous insufficiency (~2015) History of carpal tunnel release (~2011) Family History Father Renal failure Mother Renal failure Brother Diabetes Social History Housing: House Alcohol intake: current Alcohol intake frequency: holidays/special occasions only Patient Tobacco Use Status: Current everyday Tobacco user Tobacco use type: Cigarette Cigarette Packs Per Day: 1 Cigarettes Per Day: 15 e-Cigarette/Vaping Use: Never Used Second Hand Smoke Exposure: Yes service: No Current occupational status: retired Current occupation: right handed Cognitive needs: No Hearing needs: No Vision needs: Yes (reading glasses) Questionnaire Thrive Questionnaire Date Thrive assessed: 12/19/23 KINGSLEY-7 AMB Questionnaire KINGSLEY-7 Date KINGSLEY - 7 assessed: 12/19/23 Source: Developed by Drs. Ketan Kramer, Sushila Sorto, Conor Foley and colleagues, with an educational logan from [employer]. Review of Systems Const Denies chills, Denies headache(s) and Denies weight loss ENT Denies headache(s) Card Denies chest pain, Denies syncope, Denies irregular heart rhythm and Denies dyspnea Resp Denies chest congestion, Denies cough and Denies dyspnea GI Denies abdominal pain, Denies change in stool character, Denies nausea and Denies vomiting Musc Denies deformity and Denies joint swelling Neuro Denies syncope and Denies headache(s) Physical exam (Primary Care) Vital Signs: Last Vital Signs BP 110/74 03/20/24 10:30 BMI result Body Mass Index 28.9 Tobacco/Smoking Status: Tobacco use Status Tobacco use date assessed 03/20/24 03/20/24 10:33 Patient Tobacco Use Status Current everyday Tobacco 03/20/24 10:33 Tobacco use type Cigarette 03/20/24 10:33 e-Cigarette/Vaping Use Never Used 03/20/24 10:33 Thrive Assessment: Date of Thrive Assessment Date Thrive assessed 12/19/23 03/20/24 10:33 Const General: cooperative, comfortable, no acute distress and alert Neck Neck: Yes no lymphadenopathy Thyroid: Thyroid normal Resp Effort & Inspection: normal respiratory effort Auscultation: clear to auscultation bilaterally Percussion: percussion normal Cardio Jugular venous distension: no JVD Palpation: normal PMI Rate: regular rate Rhythm: regular rhythm Heart sounds: S1 normal heart sound present and S2 normal heart sound present GI Inspection: Yes normal to inspection Palpation (GI): No hepatosplenomegaly present Skin General skin exam: no rashes or lesions noted Extrem General: Yes no clubbing, cyanosis or edema Assessment and Plan Assessment & Plan (1) Hypothyroidism: Code(s): E03.9 - Hypothyroidism, unspecified Plan: stable; same rx; do labs Orders: Orders Lipid Panel Today Z13.220 - Encounter for screening for lipoid disorders Thyroid Stimulating Hormone Today Z13.29 - Encounter for screening for other suspected endocrine disorder Complete Blood Count Auto Diff Today Z13.0 - Encounter for screening for diseases of the blood and blood-forming organs and certain disorders involving the immune mechanism Comprehensive [place]. Panel Fast Today Z13.9 - Encounter for screening, unspecified Coding Level of Care Code Est Pt Level 3 (40063) Diagnoses Hypothyroidism E03.9
[2024-03-20 10:30] VITALS: BP 110/74; BMI 28.9
== END 2024-03-20 10:41 | disposition home or self-care (01) ==
PROVIDERS: PCP Internal Medicine; Visit Provider Internal Medicine
DX: E03.9 Hypothyroidism, unspecified (principal)
CPT/HCPCS: 99213

== ENCOUNTER 2024-04-23 10:24 | Outpatient (REF) | payer MEDICARE, SELFPAY ==
--- NOTE | ~2024-04-23 | CT_ITS ---
EXAMINATION: CT LOW-DOSE SCREENING CHEST WITHOUT CONTRAST CLINICAL INFORMATION: Follow-up nodules. Nicotine dependence, unspecified and uncomplicated. Current smoker, 60 pack years. COMPARISON: CT chest 10/17/2023, 07/18/2023, 05/20/2022 low dose, and 10/29/2021 low dose. TECHNIQUE: Multidetector volumetric CT imaging of the chest is performed on a Siemens SOMATOM Definition scanner without contrast using low dose technique. Additional 2D coronal and sagittal reformatted images and axial 3D maximum intensity projection (MIP) images are generated on the CT workstation. This CT examination was performed using dose optimization techniques as appropriate, variously including the following: *Automated exposure control *Adjustment of mA and/or kV according to patient size (this includes techniques or standardized protocols for targeted exams where dose is matched to indication/reason for exam; i.e. extremities or head) *Use of iterative reconstruction technique TOTAL EXAM DLP: 48 mGy-cm. FINDINGS: PULMONARY NODULES: (As seen on series 5): -3 mm calcified granuloma superior segment right lower lobe (image 168). -There are a few additional scattered calcified granulomata in both lungs, benign. -Within the lingular segment, there is a stable and unchanged smooth 1.1 x 0.9 cm nodule (image 231). This remains stable over 1.7 years. -No new or enlarging nodules. LUNGS: -Mild centrilobular emphysema. No focal consolidation or abnormal groundglass opacity. -Mild diffuse small airway thickening with minimal bronchiectasis present, findings suggesting chronic bronchitis. -Central airways patent and normal. -Minimal scarring in the medial right base, lingula, and anterior segment right upper lobe. -No pleural effusion or pleural mass. No pneumothorax. MEDIASTINUM: -Thyroid is somewhat diminutive. -Aorta is moderately calcified, mildly uncoiled and tortuous, however there is no aneurysm. -Main pulmonary artery is prominent but not enlarged by strict size criteria. -No suspicious lymphadenopathy is present in the mediastinum or hilum. -There is a large type III hiatus hernia present. -Heart size is top normal. No pericardial effusion. CORONARY ARTERY CALCIFICATION: Mild three-vessel coronary calcification. CHEST WALL/AXILLA: No masses or abnormal lymph nodes. UPPER ABDOMEN: -Partially imaged cysts in the right kidney anterior midpole. Stable hyperattenuating cysts in the left kidney mid and upper pole. -Large type III hiatus hernia. -Remainder of the upper abdominal structures are normal within confines of low-dose technique. OSSEOUS STRUCTURES: -No suspicious lytic or blastic bone lesions. Moderate to advanced degenerative spondylosis of the lower thoracic and upper lumbar spine. There is disc vacuum phenomenon spanning T9-L2. Healed fractures left posterior 10th and 11th ribs. CT/CT lung screen follow up IMPRESSION: 1. Stable pulmonary nodules, with stable lingular nodule measuring 1.1 x 0.9 cm, unchanged over 1.7 years. No new or enlarging nodules. 2. Scattered calcified granulomata. These are benign. 3. Mild centrilobular emphysema. No active pulmonary disease. 4. Mild diffuse bronchial wall thickening with minimal bronchiectasis, findings suggesting chronic bronchitis. 5. Large type III hiatus hernia. 6. An additional stable ancillary findings as discussed in the body of the report. ASSESSMENT: 1. Lung-RADS Category 2: Benign appearance or behavior of nodules. 2. Lung-RADS Category S: None. RECOMMENDATION: Continued routine annual low-dose CT lung screening in 1 year is recommended. An order for CT CHEST LOW DOSE CANCER SCREENING ([id number]) can be placed. Electronically signed by: Kevin Meadows MD 05/30/2024 12:29 PM EDT
== END 2024-04-23 10:25 | disposition home or self-care (01) ==
LOC: HO.CT 10:24
PROVIDERS: PCP Internal Medicine; Visit Provider Nurse Practitioner Family
DX: R91.1 Solitary pulmonary nodule (principal); F17.200 Nicotine dependence, unspecified, uncomplicated
CPT/HCPCS: 71250

== ENCOUNTER → 2024-04-23 10:24 | Outpatient (BNV) | payer MEDICARE, SELFPAY | PROVIDERS: PCP Internal Medicine; Visit Provider Radiology Diagnostic Radiology | DX: F17.200 Nicotine dependence, unspecified, uncomplicated (principal) | CPT/HCPCS: 71271 ==

== ENCOUNTER 2024-05-30 11:25 | Outpatient (AMB) | payer MEDICARE, SELFPAY ==
--- NOTE | 2024-05-30 11:30 | HO.NEPHOV ---
Vital Signs 05/30/24 11:31 05/30/24 11:38 Height 5 ft 6 in Weight 170 lb BMI 27.4 BP 158/76 H 140/70 H Blood Pressure Location Lt brachial Lt brachial Position Sitting Sitting Pulse 105 H Pulse Source Pulse Oximeter Pulse Oximetry (%) 98 Oxygen Delivery Method Room Air Intake Visit Reasons: Hypertensive CKD/ 4 MO FU/ Conf Solid Waste Facility Supervisor Required: No Accompanied by: Self / Same As Patient Allergies watermelon Allergy (Unknown, Verified 05/30/24 11:32) Unknown Medication List - Last Reconciled 05/30/24 by Jluis Pruett MD albuterol sulfate 90 mcg/actuation 2 puffs PO Q4H PRN biotin 1 mg PO DAILY calcium carbonate (Calcium 500) 500 mg PO DAILY cholecalciferol (vitamin D3) 50 mcg PO DAILY esomeprazole magnesium 20 mg PO DAILY fluoxetine 20 mg PO DAILY levothyroxine 137 mcg PO DAILY ondansetron HCl mg PO PRN simvastatin 40 mg PO DAILY Spiriva with HandiHaler (tiotropium bromide) 1 cap PO DAILY NS spironolacton-hydrochlorothiaz 25-25 mg 1 tab PO DAILY HPI Comments Details: 73 yr old woman with h/o smoking and HTN with CKD Here for semiannual follow up Continues to smoke 1PPD PFSH Medical History Smoker Failed back syndrome of lumbar spine Hypertension Depression Hypertensive CKD (chronic kidney disease) Personal history of nicotine dependence Hyperlipidemia Obesity COPD (chronic obstructive pulmonary disease) Hypothyroidism Surgical History History of cataract surgery (~2015) History of breast biopsy History of lumbar fusion (~2006) History of excision of mass Venous insufficiency (~2015) History of carpal tunnel release (~2011) Family History Father Renal failure Mother Renal failure Brother Diabetes Social History Housing: House Alcohol intake: current Alcohol intake frequency: holidays/special occasions only Patient Tobacco Use Status: Current everyday Tobacco user Tobacco use type: Cigarette Cigarette Packs Per Day: 1 Cigarettes Per Day: 15 e-Cigarette/Vaping Use: Never Used Second Hand Smoke Exposure: Yes service: No Current occupational status: retired Current occupation: right handed Cognitive needs: No Hearing needs: No Vision needs: Yes (reading glasses) Physical Exam Vital Signs: Last Vital Signs Pulse 105 H 05/30/24 11:31 BP 158/76 H 05/30/24 11:31 Pulse Ox 98 05/30/24 11:31 Oxygen Delivery Method Room Air 05/30/24 11:31 BMI result Body Mass Index 27.4 Results Reviewed Nephrology Results: Sodium 141 mmol/L (135-145) 01/02/24 Potassium 4.4 mmol/L (3.3-5.1) 01/02/24 Chloride 103 mmol/L (96-108) 01/02/24 Carbon Dioxide 25 mmol/L (22-29) 01/02/24 BUN 27 mg/dL (9-16) H 01/02/24 Creatinine 1.36 mg/dL (0.5-1.4) 01/02/24 Calcium 10.1 mg/dL (8.4-10.2) 01/02/24 Assessment & Plan Assessment & Plan (1) Hypertensive CKD (chronic kidney disease): Code(s): I12.9 - Hypertensive chronic kidney disease with stage 1 through stage 4 chronic kidney disease, or unspecified chronic kidney disease Category: Medical Plan Elderly woman with CKD in a setting of HTN and obesity Creatinine is stable at baseline No proteinuria Goal to keep SBP < 140 Avoid nephrotoxins including NSAIDS Needs to stop smoking; Discussed with patient. Bilateral simple cysts in kidney NO further follow up has been recommended Mild anemia No indication for Epogen Medications: New spironolacton-hydrochlorothiaz 25-25 mg 1 tab PO DAILY 90 tabs 2RF Coding Level of Care Code Est Pt Level 4 (96306) Diagnoses Hypertensive CKD (chronic kidney disease) I12.9
[2024-05-30 11:31] VITALS: BP 158/76; PULSE 105; O2SAT 98; BMI 27.4
[2024-05-30 11:38] VITALS: BP 140/70
== END 2024-05-30 11:40 | disposition home or self-care (01) ==
PROVIDERS: PCP Internal Medicine; Visit Provider Internal Medicine Hypertension Specialist
DX: I12.9 Hypertensive chronic kidney disease with stage 1 through stage 4 chronic kidney disease, or unspecified chronic kidney disease (principal)
CPT/HCPCS: 99214

== ENCOUNTER → 2024-05-30 11:25 | Outpatient (BNVA) | payer MEDICARE, SELFPAY | PROVIDERS: PCP Internal Medicine; Visit Provider Internal Medicine Hypertension Specialist | DX: I12.9 Hypertensive chronic kidney disease with stage 1 through stage 4 chronic kidney disease, or unspecified chronic kidney disease (principal); N18.9 Chronic kidney disease, unspecified | CPT/HCPCS: 99212 ==

== ENCOUNTER 2024-06-13 12:16 | Outpatient (REF) | payer MEDICARE, SELFPAY ==
[2024-06-13 13:09] LABS: MANUAL DIFF FLAG NO
[2024-06-13 13:12] LABS: White Blood Count 6.1 X10*3/uL (4.8-10.8)
[2024-06-13 13:13] LABS: Basophils Absolute Auto 0.1 X10*3/uL (0.0-0.2); Basophils Percent Auto 1.3 % (0-2); Eosinophils Absolute Auto 0.4 X10*3/uL (0.0-0.4); Eosinophils Percent Auto 6.2 % (0-4); Hematocrit 33.3 % (37.0-47.0); Hemoglobin 10.4 g/dl (12.0-16.0); Imm Gran Abs Auto 0.01 X10*3/uL (0.00-0.03); Imm Gran Pct Auto 0.2 % (0.0-0.4); Lymphocytes Percent Auto 16.5 % (20-40); Mean Corpuscular HGB Conc 31.2 g/dl (31.0-35.0); Mean Corpuscular Hemoglobin 26.2 pg (27.0-33.0); Mean Corpuscular Volume 83.9 fL (80.0-98.0); Monocytes Absolute Auto 0.5 X10*3/uL (0.1-1.2); Monocytes Percent Auto 8.3 % (2-11); Neutrophils Absolute Auto 4.1 x10*3/uL (2.0-8.3); Neutrophils Percent Auto 67.5 % (45-73); Platelet Count 445 X10*3/uL (160-400); Red Blood Count 3.97 X10*6/uL (4.20-5.50); Red Cell Distribution Width 17.8 % (11.0-16.0)
[2024-06-13 13:34] LABS: Alanine Aminotransferase 11 U/L (0-31); Albumin Level 4.1 g/dL (3.5-5.0); Alkaline Phosphatase 98 U/L (39-117); Anion Gap 15 (12-20); Aspartate Amino Transferase 15 U/L (5-31); Bilirubin Total 0.4 mg/dL (0.0-1.0); Blood Urea Nitrogen 32 mg/dL (9-16); Carbon Dioxide 27 mmol/L (22-29); Chloride 102 mmol/L (96-108); Cholesterol 186 mg/dL (<200); Estimated Glomerular Filt Rate 29; Glucose Fasting 106 mg/dL (60-99); HDL Cholesterol 59 mg/dL (>40); LDL Cholesterol Calculated 111 mg/dL (<100); Potassium 3.8 mmol/L (3.3-5.1); Sodium 140 mmol/L (135-145); Total Protein 7.3 g/dL (6.5-8.0); Triglycerides 84 mg/dL (<150)
[2024-06-13 13:50] LABS: Thyroid Stimulating Hormone 0.29 uIU/mL (0.32-4.0)
== END 2024-06-13 12:17 | disposition home or self-care (01) ==
LOC: HO.10HDL 12:16
PROVIDERS: Visit Provider Internal Medicine
DX: Z13.0 Encounter for screening for diseases of the blood and blood-forming organs and certain disorders involving the immune mechanism (principal); Z13.220 Encounter for screening for lipoid disorders; Z13.29 Encounter for screening for other suspected endocrine disorder; Z13.6 Encounter for screening for cardiovascular disorders
CPT/HCPCS: 36415; 80053; 80061; 84443; 85025

== ENCOUNTER 2024-06-20 11:23 | Outpatient (AMB) | payer MEDICARE, SELFPAY ==
[2024-06-20 11:25] VITALS: BP 142/80; PULSE 77; O2SAT 96; BMI 27.4
--- NOTE | 2024-06-20 11:25 | MHC.PC.OV ---
Vital Signs 06/20/24 11:25 Height 5 ft 6 in Weight 170 lb BMI 27.4 BP 142/80 H Blood Pressure Location Lt brachial Position Sitting Pulse 77 Pulse Source Pulse Oximeter Pulse Oximetry (%) 96 Oxygen Delivery Method Room Air Intake Visit Reasons: 3mth f/u Accounts Administrator Required: No Accompanied by: Self / Same As Patient Allergies watermelon Allergy (Unknown, Verified 06/20/24 11:25) Unknown Medication List - Last Reconciled 06/20/24 by Viral aDwson MD albuterol sulfate 90 mcg/actuation 2 puffs PO Q4H PRN biotin 1 mg PO DAILY calcium carbonate (Calcium 500) 500 mg PO DAILY cholecalciferol (vitamin D3) 50 mcg PO DAILY esomeprazole magnesium 20 mg PO DAILY fluoxetine 20 mg PO DAILY levothyroxine 137 mcg PO DAILY ondansetron HCl mg PO PRN simvastatin 40 mg PO DAILY Spiriva with HandiHaler (tiotropium bromide) 1 cap PO DAILY NS spironolacton-hydrochlorothiaz 25-25 mg 1 tab PO DAILY Tobacco use date assessed: 03/20/24 Fall risk assessment: No Falls in past year Last assessed Fall Risk: 06/20/24 Dental Screening Dental Screen Date: 12/19/23 HPI 3mth f/u HPI Details hypothyroidism on rx; TSH low; needs med adjusted PFSH Medical History Smoker Failed back syndrome of lumbar spine Hypertension Depression Hypertensive CKD (chronic kidney disease) Personal history of nicotine dependence Hyperlipidemia Obesity COPD (chronic obstructive pulmonary disease) Hypothyroidism Surgical History History of cataract surgery (~2015) History of breast biopsy History of lumbar fusion (~2006) History of excision of mass Venous insufficiency (~2015) History of carpal tunnel release (~2011) Family History Father Renal failure Mother Renal failure Brother Diabetes Social History Housing: House Alcohol intake: current Alcohol intake frequency: holidays/special occasions only Patient Tobacco Use Status: Current everyday Tobacco user Tobacco use type: Cigarette Cigarette Packs Per Day: 1 Cigarettes Per Day: 15 e-Cigarette/Vaping Use: Never Used Second Hand Smoke Exposure: Yes service: No Current occupational status: retired Current occupation: right handed Cognitive needs: No Hearing needs: No Vision needs: Yes (reading glasses) Questionnaire PHQ-9 Over the last 2 weeks, how often have you been bothered by any of the following problems? 1. Little interest or pleasure in doing things: not at all 2. Feeling down, depressed, or hopeless: not at all 3. Trouble falling or staying asleep, or sleeping too much: not at all 4. Feeling tired or having little energy: not at all 5. Poor appetite or overeating: not at all 6. Feeling bad about yourself - or that you are a failure or have let yourself or your family down: not at all 7. Trouble concentrating on things, such as reading the newspaper or watching television: not at all 8. Moving or speaking so slowly that other people could have noticed. Or the opposite - being so fidgety or restless that you have been moving around a lot more than usual: not at all 9. Thoughts that you would be better off or of hurting yourself in some way: not at all Total score: 0 Depression Screening Interpretation: Negative Depression Screening Done: Yes [id number] - PHQ-9 Billing: Yes Source: Developed by Drs. Ketan Krmaer, Conor Coleman and colleagues, with an educational logan from [employer] Thrive Questionnaire Date Thrive assessed: 12/19/23 AUDIT C Alcohol Use Questionnaire (AUDIT-C) 2. How many drinks containing alcohol do you have on a typical day when you are drinking?: 3 or 4 3. How often do you have six or more drinks on one occasion?: Less than monthly Total Score: 2 KINGSLEY-7 AMB Questionnaire KINGSLEY-7 Date KINGSLEY - 7 assessed: 12/19/23 Source: Developed by Sushila Mesa Kurt Kroenke and colleagues, with an educational logan from [employer]. Review of Systems Const Denies chills, Denies headache(s) and Denies weight loss ENT Denies headache(s) Card Denies chest pain, Denies syncope, Denies irregular heart rhythm and Denies dyspnea Resp Denies chest congestion, Denies cough and Denies dyspnea GI Denies abdominal pain, Denies change in stool character, Denies nausea and Denies vomiting Musc Denies deformity and Denies joint swelling Neuro Denies syncope and Denies headache(s) Physical exam (Primary Care) Vital Signs: Last Vital Signs Pulse 77 06/20/24 11:25 BP 142/80 H 06/20/24 11:25 Pulse Ox 96 06/20/24 11:25 Oxygen Delivery Method Room Air 06/20/24 11:25 BMI result Body Mass Index 27.4 Tobacco/Smoking Status: Tobacco use Status Tobacco use date assessed 03/20/24 06/20/24 11:30 Patient Tobacco Use Status Current everyday Tobacco 06/20/24 11:30 Tobacco use type Cigarette 06/20/24 11:30 e-Cigarette/Vaping Use Never Used 06/20/24 11:30 PHQ-9: PHQ-9 Score PHQ-9: Total score 0 06/20/24 11:30 Depression Screening Interpretation: Negative Thrive Assessment: Date of Thrive Assessment Date Thrive assessed 12/19/23 06/20/24 11:30 Const General: cooperative, comfortable, no acute distress and alert Neck Neck: Yes no lymphadenopathy Thyroid: Thyroid normal Resp Effort & Inspection: normal respiratory effort Auscultation: clear to auscultation bilaterally Percussion: percussion normal Cardio Jugular venous distension: no JVD Palpation: normal PMI Rate: regular rate Rhythm: regular rhythm Heart sounds: S1 normal heart sound present and S2 normal heart sound present GI Inspection: Yes normal to inspection Palpation (GI): No hepatosplenomegaly present Skin General skin exam: no rashes or lesions noted Extrem General: Yes no clubbing, cyanosis or edema Assessment and Plan Assessment & Plan (1) Hypothyroidism: Code(s): E03.9 - Hypothyroidism, unspecified Plan: decrease rx Orders: Orders Thyroid Stimulating Hormone Today Z13.29 - Encounter for screening for other suspected endocrine disorder Medications: New levothyroxine 125 mcg PO DAILY 90 tabs 2RF Discontinued levothyroxine Discontinued Reason: None 137 mcg PO DAILY 90 tabs 4RF Coding Level of Care Code Est Pt Level 3 (93466) Diagnoses Hypothyroidism E03.9
== END 2024-06-20 11:39 | disposition home or self-care (01) ==
PROVIDERS: PCP Internal Medicine; Visit Provider Internal Medicine
DX: E03.9 Hypothyroidism, unspecified (principal)
CPT/HCPCS: 99213

== ENCOUNTER 2024-07-09 10:48 | Outpatient (AMB) | payer MEDICARE, SELFPAY ==
[2024-07-09 10:54] VITALS: BP 122/60; PULSE 79; O2SAT 92; BMI 27.2
--- NOTE | 2024-07-09 10:54 | A.OFFVIS_ITS ---
Vital Signs 07/09/24 10:54 Height 5 ft 6 in Weight 168 lb 10.458 oz BMI 27.2 BP 122/60 Blood Pressure Location Lt brachial Position Sitting Pulse 79 Pulse Source Pulse Oximeter Pulse Oximetry (%) 92 Oxygen Delivery Method Room Air Intake Visit Reasons: COPD Intake Note: pt is here for follow up and states short of breath at times, some coughing and wheezing. 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 Allergies watermelon Allergy (Unknown, Verified 07/09/24 11:20) Unknown Medication List - Last Reconciled 07/09/24 by Guera Herrera MD albuterol sulfate 90 mcg/actuation 2 puffs PO Q4H PRN biotin 1 mg PO DAILY calcium carbonate (Calcium 500) 500 mg PO DAILY cholecalciferol (vitamin D3) 50 mcg PO DAILY esomeprazole magnesium 20 mg PO DAILY fluoxetine 20 mg PO DAILY levothyroxine 125 mcg PO DAILY ondansetron HCl mg PO PRN simvastatin 40 mg PO DAILY Spiriva with HandiHaler (tiotropium bromide) 1 cap PO DAILY NS spironolacton-hydrochlorothiaz 25-25 mg 1 tab PO DAILY Do you need a note to return to daycare/school/sports/work: No HPI HPI COPD: Details: MARTÍN IS 74 YEARS OLD VERY PLEASANT FEMALE, SHE IS HERE TODAY FOR 6 MONTHS FOLLOW-UP. ONLY COMPLAINT IS MILD INTERMITTENT COUGH AND SOME SHORTNESS OF BREATH WHEN SHE WALKS UP HILL OR CLIMBS STAIRS. SHE USES SPIRIVA HANDIHALER ONCE A DAY AND NEEDS TO USE ALBUTEROL HFA ONLY ONCE IN A WHILE. MAIN PROBLEM IS THAT SHE IS STILL SMOKING AND CONTINUES TO SMOKE 1 PACK A DAY. SHE IS FULLY AWARE OF THE ISSUE AND LIKES TO QUIT BUT IS IS DIFFICULT. [facility] Medical History Smoker Failed back syndrome of lumbar spine Hypertension Depression Hypertensive CKD (chronic kidney disease) Personal history of nicotine dependence Hyperlipidemia Obesity COPD (chronic obstructive pulmonary disease) Hypothyroidism Surgical History History of cataract surgery (~2015) History of breast biopsy History of lumbar fusion (~2006) History of excision of mass Venous insufficiency (~2015) History of carpal tunnel release (~2011) Family History Father Renal failure Mother Renal failure Brother Diabetes Social History Housing: House Alcohol intake: current Alcohol intake frequency: holidays/special occasions only Patient Tobacco Use Status: Current everyday Tobacco user Tobacco use type: Cigarette Cigarette Packs Per Day: 1 Cigarettes Per Day: 15 e-Cigarette/Vaping Use: Never Used Second Hand Smoke Exposure: Yes service: No Current occupational status: retired Current occupation: right handed Cognitive needs: No Hearing needs: No Vision needs: Yes (reading glasses) Review of Systems Const All systems reviewed & are unremarkable except as noted in HPI and below ENT Reports no additional complaints Card Denies chest pain, Denies irregular heart rhythm and Denies leg edema Resp Reports as per HPI GI Reports heartburn (Controlled with med) Reports no additional complaints Musc Reports no additional complaints Skin/Breast Reports system reviewed and no additional complaints, except as documented Neuro Reports no additional complaints Psych Reports depression (Controlled with med) Endo Reports other (Thyroid controlled with med) Aller/Immun Reports no additional complaints Physical Exam Const General: comfortable, no acute distress, alert and awake Orientation/consciousness: patient oriented x3 HEENT Head: Yes normal to inspection General nose exam: No nasal polyps present and No nasal discharge present Face and sinus: Yes sinuses nontender Mouth: oropharynx normal Throat: Yes posterior oropharynx normal Eyes General: appearance normal, both eyes and all related structures Neck Neck: Yes normal visual inspection, Yes no lymphadenopathy, Yes trachea midline and Yes no JVD Thyroid: Thyroid normal Chest Chest palpation & inspection: normal inspection of the chest, normal palpation of entire chest wall and no tenderness Resp Other: Percussion note resonant, breath sounds are distant with prolonged expiratory phase. But no crepitations or wheezes are heard. Cardio Palpation: normal PMI Rate: regular rate Rhythm: regular rhythm Heart sounds: no gallops and no murmurs GI Palpation (GI): Soft to palpation, nontender, No hepatosplenomegaly present and no masses Auscultation: normal bowel sounds Back/Spine/Pelvis Thoracic/Lumbar Spine: thoracic and lumbar spine normal to inspection Skin General skin exam: no rashes or lesions noted Neuro General: patient oriented x3 and no focal motor deficits Cranial nerves: Yes CN's II-XII intact bilaterally Extrem General: Yes normal to inspection, Yes no clubbing, cyanosis or edema and Yes no calf tenderness Psych Appearance: grossly normal and well kempt Speech and movement: Normal speech and movement present Results Reviewed Results Reviewed: LDCT ON 04/23 1. Stable pulmonary nodules, with stable lingular nodule measuring 1.1 x 0.9 cm, unchanged over 1.7 years. No new or enlarging nodules. 2. Scattered calcified granulomata. These are benign. 3. Mild centrilobular emphysema. No active pulmonary disease. 4. Mild diffuse bronchial wall thickening with minimal bronchiectasis, findings suggesting chronic bronchitis. 5. Large type III hiatus hernia. 6. An additional stable ancillary findings as discussed in the body of the report. ASSESSMENT: 1. Lung-RADS Category 2: Benign appearance or behavior of nodules. 2. Lung-RADS Category S: N Assessment & Plan Assessment & Plan (1) COPD (chronic obstructive pulmonary disease): Comment: THIS PATIENT DOES HAVE CHRONIC OBSTRUCTIVE PULMONARY DISEASE, MILD TO MODERATE, SEEMS TO BE WELL CONTROLLED WITH HER CURRENT REGIMEN. MILD INTERMITTENT COUGH IS EXPECTED SECONDARY TO SMOKING. Code(s): J44.9 - Chronic obstructive pulmonary disease, unspecified Category: Medical Plan: SPIRIVA HANDIHALER 1 INHALATION DAILY ALBUTEROL HFA 2 PUFFS Q 6 HOURS P.R.N. (2) Smoker: Comment: Unfortunately patient resumed smoking last year after the of 1 of her friends. She has difficulty in quitting. STILL SMOKING ABOUT 15-20 CIGARETTES A DAY. Code(s): F17.200 - Nicotine dependence, unspecified, uncomplicated Category: Social Hx Plan: MOST OF THE TIME OF THIS VISIT WAS DEDICATED TO DISCUSSION ABOUT QUIT SMOKING. I HAVE ADVISED HER TO START CUTTING DOWN THE NUMBER OF CIGARETTES AND HOPEFULLY BRING DOWN TO 5-10 CIGARETTES A DAY. THEN WE CAN TALK FOR FURTHER ACTION. (3) Pulmonary nodule: Comment: (6x10mm MASON nodule on 10/29/21 LDCT) last LDCT on 05/20/22 ,No new change . LAST CT SCAN ON 04/23 NO FURTHER CHANGE IN THE SIZE OF PULMONARY NODULE IN LEFT UPPER LOBE. Patient is being followed very closely by Annual Lung Screening team . Code(s): R91.1 - Solitary pulmonary nodule Category: Medical Plan: DISCUSSED WITH THE PATIENT IN DETAIL, TOLD HER THAT IF THE NODULES GETS ANY BIGGER WE WILL NEED TO DO INTERVENTIONAL WORKUP AND POSSIBLE SURGERY. THIS MAKES HER LITTLE BIT MORE SERIOUS ABOUT QUITTING SMOKING. Coding Level of Care Code Est Pt Level 3 (33975) Diagnoses COPD (chronic obstructive pulmonary disease) J44.9 Smoker F17.200 Pulmonary nodule R91.1
== END 2024-07-09 11:21 | disposition home or self-care (01) ==
PROVIDERS: PCP Internal Medicine; Visit Provider Internal Medicine
DX: J44.9 Chronic obstructive pulmonary disease, unspecified (principal); F17.200 Nicotine dependence, unspecified, uncomplicated; R91.1 Solitary pulmonary nodule
CPT/HCPCS: 99213

== ENCOUNTER → 2024-07-09 10:48 | Outpatient (BNVA) | payer MEDICARE, SELFPAY | PROVIDERS: PCP Internal Medicine; Visit Provider Internal Medicine | DX: J44.9 Chronic obstructive pulmonary disease, unspecified (principal); R91.1 Solitary pulmonary nodule; F17.210 Nicotine dependence, cigarettes, uncomplicated | CPT/HCPCS: 99212 ==

== ENCOUNTER 2024-09-11 12:05 | Outpatient (REF) | payer MEDICARE, SELFPAY ==
[2024-09-11 13:27] LABS: Thyroid Stimulating Hormone 0.07 uIU/mL (0.32-4.0)
== END 2024-09-11 12:06 | disposition home or self-care (01) ==
LOC: HO.10HDL 12:05
PROVIDERS: Visit Provider Internal Medicine
DX: Z13.29 Encounter for screening for other suspected endocrine disorder (principal)
CPT/HCPCS: 36415; 84443

== ENCOUNTER 2024-09-19 10:39 | Outpatient (AMB) | payer MEDICARE, SELFPAY ==
[2024-09-19 10:51] VITALS: BP 132/68; PULSE 92; O2SAT 96; BMI 25.8
--- NOTE | 2024-09-19 10:51 | A.OFFPC_ITS ---
Vital Signs 09/19/24 10:51 Height 5 ft 6 in Weight 160 lb BMI 25.8 BP 132/68 Blood Pressure Location Lt brachial Position Sitting Pulse 92 Pulse Source Pulse Oximeter Pulse Oximetry (%) 96 Oxygen Delivery Method Room Air Intake Visit Reasons: 3 Month F/U - see comments Allergies watermelon Allergy (Unknown, Verified 09/19/24 10:52) Unknown Medication List - Last Reconciled 09/20/24 by Viral Dawson MD albuterol sulfate 90 mcg/actuation 2 puffs PO Q4H PRN biotin 1 mg PO DAILY calcium carbonate (Calcium 500) 500 mg PO DAILY cholecalciferol (vitamin D3) 50 mcg PO DAILY esomeprazole magnesium 20 mg PO DAILY fluoxetine 20 mg PO DAILY levothyroxine 125 mcg PO DAILY ondansetron HCl mg PO PRN simvastatin 40 mg PO DAILY Spiriva with HandiHaler (tiotropium bromide) 1 cap PO DAILY NS spironolacton-hydrochlorothiaz 25-25 mg 1 tab PO DAILY Tobacco use date assessed: 03/20/24 Fall risk assessment: No Falls in past year Last assessed Fall Risk: 09/19/24 Dental Screening Dental Screen Date: 12/19/23 HPI 3 Month F/U - see comments HPI Details hypothyroidism on rx; TSH low; needs med adjusted PFSH Medical History Smoker Failed back syndrome of lumbar spine Hypertension Depression Hypertensive CKD (chronic kidney disease) Personal history of nicotine dependence Hyperlipidemia Obesity COPD (chronic obstructive pulmonary disease) Hypothyroidism Surgical History History of cataract surgery (~2015) History of breast biopsy History of lumbar fusion (~2006) History of excision of mass Venous insufficiency (~2015) History of carpal tunnel release (~2011) Family History Father Renal failure Mother Renal failure Brother Diabetes Social History Housing: House Alcohol intake: current Alcohol intake frequency: holidays/special occasions only Patient Tobacco Use Status: Current everyday Tobacco user Tobacco use type: Cigarette Cigarette Packs Per Day: 1 Cigarettes Per Day: 15 e-Cigarette/Vaping Use: Never Used Second Hand Smoke Exposure: Yes service: No Current occupational status: retired Current occupation: right handed Cognitive needs: No Hearing needs: No Vision needs: Yes (reading glasses) Questionnaire PHQ-9 Over the last 2 weeks, how often have you been bothered by any of the following problems? 1. Little interest or pleasure in doing things: not at all 2. Feeling down, depressed, or hopeless: not at all 3. Trouble falling or staying asleep, or sleeping too much: not at all 4. Feeling tired or having little energy: not at all 5. Poor appetite or overeating: not at all 6. Feeling bad about yourself - or that you are a failure or have let yourself or your family down: not at all 7. Trouble concentrating on things, such as reading the newspaper or watching television: not at all 8. Moving or speaking so slowly that other people could have noticed. Or the opposite - being so fidgety or restless that you have been moving around a lot more than usual: not at all 9. Thoughts that you would be better off or of hurting yourself in some way: not at all Total score: 0 Depression Screening Interpretation: Negative Depression Screening Done: Yes 59238 - PHQ-9 Billing: Yes Source: Developed by Drs. Ketan Kramer, Conor Coleman and colleagues, with an educational logan from [employer]. Thrive Questionnaire Date Thrive assessed: 12/19/23 AUDIT C Alcohol Use Questionnaire (AUDIT-C) 2. How many drinks containing alcohol do you have on a typical day when you are drinking?: 3 or 4 3. How often do you have six or more drinks on one occasion?: Less than monthly Total Score: 2 KINGSLEY-7 AMB Questionnaire KINGSLEY-7 Date KINGSLEY - 7 assessed: 12/19/23 Source: Developed by Drs. Ketan Kramer, Conor Coleman and colleagues, with an educational logan from [employer]. Review of Systems Const Denies chills, Denies headache(s) and Denies weight loss ENT Denies headache(s) Card Denies chest pain, Denies syncope, Denies irregular heart rhythm and Denies dyspnea Resp Denies chest congestion, Denies cough and Denies dyspnea GI Denies abdominal pain, Denies change in stool character, Denies nausea and Denies vomiting Musc Denies deformity and Denies joint swelling Neuro Denies syncope and Denies headache(s) Physical exam (Primary Care) Vital Signs: Last Vital Signs Pulse 92 09/19/24 10:51 BP 132/68 09/19/24 10:51 Pulse Ox 96 09/19/24 10:51 Oxygen Delivery Method Room Air 09/19/24 10:51 BMI result Body Mass Index 25.8 Tobacco/Smoking Status: Tobacco use Status Tobacco use date assessed 03/20/24 09/19/24 10:52 Patient Tobacco Use Status Current everyday Tobacco 09/19/24 10:52 Tobacco use type Cigarette 09/19/24 10:52 e-Cigarette/Vaping Use Never Used 09/19/24 10:52 PHQ-9: PHQ-9 Score PHQ-9: Total score 0 09/19/24 10:52 Depression Screening Interpretation: Negative Thrive Assessment: Date of Thrive Assessment Date Thrive assessed 12/19/23 09/19/24 10:52 Const General: cooperative, comfortable, no acute distress and alert Neck Neck: Yes no lymphadenopathy Thyroid: Thyroid normal Resp Effort & Inspection: normal respiratory effort Auscultation: clear to auscultation bilaterally Percussion: percussion normal Cardio Jugular venous distension: no JVD Palpation: normal PMI Rate: regular rate Rhythm: regular rhythm Heart sounds: S1 normal heart sound present and S2 normal heart sound present GI Inspection: Yes normal to inspection Palpation (GI): No hepatosplenomegaly present Skin General skin exam: no rashes or lesions noted Extrem General: Yes no clubbing, cyanosis or edema Coding Level of Care Code Est Pt Level 3 (37832) Diagnoses Hypothyroidism E03.9 Additional Codes PHQ-9 - 80959 - PHQ-9 Billing: Yes ([id number]) Assessment & Plan Assessment & Plan (1) Hypothyroidism: Code(s): E03.9 - Hypothyroidism, unspecified Category: Medical Plan: decrease rx Orders: Orders Thyroid Stimulating Hormone Today Z13.29 - Encounter for screening for other suspected endocrine disorder Medications: New levothyroxine 100 mcg PO DAILY 90 tabs 1RF Discontinued levothyroxine Discontinued Reason: Doctor's Order 125 mcg PO DAILY 90 tabs 2RF
== END 2024-09-19 11:02 | disposition home or self-care (01) ==
PROVIDERS: PCP Internal Medicine; Visit Provider Internal Medicine
DX: E03.9 Hypothyroidism, unspecified (principal)

== ENCOUNTER → 2024-09-19 10:39 | Outpatient (BNVA) | payer MEDICARE, SELFPAY | PROVIDERS: PCP Internal Medicine; Visit Provider Internal Medicine | DX: E03.9 Hypothyroidism, unspecified (principal) | CPT/HCPCS: 96127; 99212 ==

== ENCOUNTER 2024-11-21 12:08 | Outpatient (REF) | payer MEDICARE, SELFPAY ==
--- OUTSIDE RECORDS SUMMARY | 2024-11-21 12:24 | XMS_ITS | Clinical Summary ---
Author Organization [facility] Address [address] [place] [address] Care Team Providers Care Campus Recruiting Intern Name Role Phone Tonny Abreu DO Primary Care Provider [phone] Surgical History Surgery Date Site/Laterality Comments BACK SURGERY PROCEDURE: HISTORICAL BACK SURGERY; COMMENT: spinal fusion CARPAL TUNNEL RELEASE PROCEDURE: HISTORICAL CARPAL TUNNEL REL; COMMENT: right BREAST LUMPECTOMY PROCEDURE: ---- BREAST LUMP BIOPSY ---- OTHER SURGICAL HISTORY PROCEDURE: ---- OTHER ----; COMMENT: remove benign mass from behind right ear BREAST BIOPSY Bilateral PROCEDURE: BX BREAST; PERC NEEDLE CORE W/IMAG GUID; COMMENT: benign etiology BREAST SURGERY Left PROCEDURE: [place] UNLISTED PROCEDURE BREAST; COMMENT: benign Family History Medical History Relation Name Comments Breast cancer Aunt mat x 2 No Known Problems Daughter No Known Problems Father No Known Problems Maternal Grandfather No Known Problems Maternal Grandmother No Known Problems Mother No Known Problems Other No Known Problems Paternal Grandfather No Known Problems Paternal Grandmother No Known Problems Sister Colon cancer Neg Hx Ovarian cancer Neg Hx Relation Name Status Comments Aunt mat x 2 Daughter Father Maternal Grandfather Maternal Grandmother Mother Other Paternal Grandfather Paternal Grandmother Sister Social History Tobacco Use Types Packs/Day Years Used Date Smoking Tobacco: Every Day Cigarettes Alcohol Use Standard Drinks/Week Comments Yes 0 (1 standard drink = 0.6 oz pur e alcohol) Comments Unknown Sex and Gender Information Value Date Recorded Sex Assigned at Not on file Legal Sex Female 9:10 PM EST Gender Identity Not on file Sexual Orientation Not on file Obstetrics History Plan of Treatment Upcoming Encounters Date Type Department Care Team ([facility] Contact Info) Description 07/21/2025 1:30 PM EDT Appointment Radiology Department [address] [address] Health Maintenance Due Date Last Done Comments Pneumococcal Vaccine: 50+ Years (1 of 2 - PCV) 01/18/1956 DTaP,Tdap,and Td Vaccines (1 - Tdap) 01/18/1967 Zoster Vaccines (1 of 2) 01/18/1998 Cholesterol Screening (Lipid Panel) 09/18/2022 Depression Screening 09/18/2022 Falls Risk Assessment 09/18/2022 Hepatitis C Screening 09/18/2022 Osteoporosis Screening (Bone Density Screening) 09/18/2022 Social Influencers of Health Screening 09/18/2022 Hypertension/CHF/CAD Annual BMP Blood Test 09/24/2022 RSV Immunization Patients 60+ Years Old (1 - 1-dose 75+ series) 01/18/2023 COVID-19 Vaccine ( - season) 2024 Influenza Vaccine (#1) 2024 Breast Cancer Screening Discontinued 06/28/20 24, 06/28/2024, 02/13/2023, Additional history exists HIB Vaccines Aged Out No longer eligi ble based on patient's age to complete this topic HPV Vaccines Aged Out No longer eligi ble based on patient's age to complete this topic Hepatitis A Vaccines Aged Out No long er eligible based on patient's age to complete this topic Hepatitis B Vaccines Aged Out No long er eligible based on patient's age to complete this topic IPV Vaccines Aged Out No longer eligi ble based on patient's age to complete this topic MMR Vaccines Aged Out No longer eligi ble based on patient's age to complete this topic Meningococcal ACWY Vaccine Aged Out N o longer eligible based on patient's age to complete this topic RSV Immunization Patients Under 20 months Aged Out No longer eligible based on patient's age to complete this topic Varicella Vaccines Aged Out No longer eligible based on patient's age to complete this topic Procedures Procedure Name Priority Date/Time Associated Diagnosis Comments SCREENING MAMMOGRAPHY BI 2-VIEW BREAST INC CAD Routine 06/28/2024 3:10 PM EDT Encounter for screening mammogram for malignant neoplasm of breast from Last 3 Months or Most Recently Relevant to Health Maintenance Results * SCREENING MAMMOGRAPHY BI 2-VIEW BREAST INC CAD (06/28/2024 3:10 PM EDT) Anatomical Region Laterality Modality Radiographic Deya ging 02/13/2023 1:02 PM EDT Narrative 07/01/2024 1:32 PM EDT This is a summary report. The complete report is available in the patient's medical record. If you cannot access the medical record, please contact the sending organization for a detailed fax or copy. Full field digital screening tomosynthesis mammography, reviewed with CAD and compared to previous. The breast tissue is heterogeneously dense, limiting sensitivity. No suspicious mass, architectural distortion or suspicious calcifications are identified. IMPRESSION: : Dense breast tissue, limiting the sensitivity of mammography. No mammographic evidence of malignancy. BIRADS 1-Negative; N. Breast density: The breasts are heterogeneously dense, which may obscure small masses. 5 year breast cancer risk assessment 3.2 % Lifetime breast cancer risk assessment 6.4 % Breast cancer risk category Low (<15%) Location: [facility], [address] [place] [address], [address], [phone] Procedure Note Thu Ivan MD - 07/24/2024 This is a summary report. The complete report is available in thepatient's medical record. If you cannot access the medical record, pleasecontact the sending organization for a detailed fax or copy. Full field digital screening tomosynthesis mammography, reviewed with CADand compared to previous. The breast tissue is heterogeneously dense,limiting sensitivity. No suspicious mass, architectural distortion orsuspicious calcifications are identified. IMPRESSION: : Dense breast tissue, limiting the sensitivity of mammography. Nomammographic evidence of malignancy. BIRADS 1-Negative; N. Breast density: The breasts are heterogeneously dense, which may obscuresmall masses. 5 year breast cancer risk assessment 3.2 % Lifetime breast cancer risk assessment 6.4 % Breast cancer risk category Low (<15%) Location: [facility], [address] [place] [address], [address], [phone] Viral Dawson MD IMG XR PROCEDURES Final Result from Last 3 Months or Most Recently Relevant to Health Maintenance Care Teams Campus Recruiting Intern Relationship Specialty Start Date End Date Tonny Abreu DO [address] [facility] [address] [place] [address] PCP - General 08/12/16
--- OUTSIDE RECORDS SUMMARY | 2024-11-21 12:25 | XMS_ITS | Clinical Summary ---
Author Organization [facility] Address [address] [place] [address] Phone Care Team Providers Care Rotary Peel Oven Tender Name Role Phone Viral Dawson MD Primary Care Provider [phone] Allergies No known active allergies Medications albuterol HFA (PROVENTIL HFA;VENTOLIN HFA) 108 (90 Base) MCG/ACT inhaler Inhale 2 puffs 4 (four) times a day Active aspirin (ST NBA) 81 MG EC tablet Take 1 tablet by mouth 1 (one) time each day Active Calcium Carbonate-Vitam in D 600-200 MG-UNIT capsule Take 2 capsules by mouth 1 (one) time each day Active cholecalciferol (VITAMIN D-3) 25 MCG (1000 UT) capsule Take 1 capsule by mouth 1 (one) time each day Active esomeprazole (NexIUM) [address] capsule Take 1 capsule by mouth 1 (one) time each day Active FLUoxetine (PROzac) 20 MG capsule Take 1 capsule by mouth 1 (one) time each day Active levothyroxine (SYNTHROID, LEVOTHROID) 137 MCG tablet Take 137 mcg by mouth 1 (one) time each day Active oxyCODONE (OXY-IR) 5 MG immediate release capsule Take 1 capsule by mouth 4 (four) times a day Active simvastatin (ZOCOR) 40 MG tablet Take 1 tablet by mouth at bed time Active tiotropium (Spiriva HandiHaler) 18 MCG per inhalation capsule Active ondansetron (ZOFRAN) 4 MG tablet Take 4 mg by mouth every 8 (eight) hours if needed for nausea or vomiting Active spironolactone- hydroCHLOROthia zide (Aldactazide) 25-25 MG per tabletIndicatio ns:Hypertensive chronic kidney disease, unspecified, with chronic kidney disease stage I through stage IV, or unspecified,Sta ge 3b chronic kidney disease (HCC) Take 1 tablet by mouth 1 (one) time each day 90 tablet 3 12/06/2023 11/30/19 25 Active Active Problems Problem Noted Date Diagnosed Date Somatization disorder 04/21/2022 Patient encounter status 04/21/2022 Overview (04/21/2022): SOAP-R 04/28/2021-12 Obese class I 04/21/2022 Nicotine dependence 04/21/2022 Finding of activity of daily living 04/21/2022 Overview (04/21/2022): updated Oswestry Disability Questionnaire: 30% ( moderate disability ) on 12/06/21; updated [place] Back Pain Scale: 23 on 12/06/21initial Oswestry Disability Questionnaire: 26% ( moderate disability ) on 04/28/21; initial [place] Back Pain Scale: 23 on 04/28/21 Chronic kidney disease stage 3 12/30/2020 Hypercholesterolemia 05/09/2013 Hypertension 05/09/2013 Hypothyroidism 05/09/2013 Immunizations Name Administration Dates Next Due Pneumococcal Conjugate 13-Valent 06/22/2017 Family History Medical History Relation Comments Diabetes Brother Cancer Father lung Kidney disease Father renal failure Gout Mother Hypertension Mother Kidney disease Mother renal failure Diabetes Sibling Relation Status Comments Brother Father Mother Sibling Social History Tobacco Use Types Packs/Day Years Used Date Smoking Tobacco: Some Days Cigarettes 1 56 Started: [birth year]1961; Last attempted to quit: 12/12/2019 Smokeless Tobacco: Current Tobacco Cessation:Ready to Q uit: Not Asked; Counseling Given: Not Answered Comments:Restarted smoking summer 2020 - of best friend. Currently struggling to quit again. Alcohol Use Standard Drinks/Week Comments Yes 0 (1 standard drink = 0.6 oz pur e alcohol) Do not drink every day/week Comments Unknown Sex and Gender Information Value Date Recorded Sex Assigned at Not on file Legal Sex Female 4:50 PM EST Gender Identity Not on file Sexual Orientation Not on file Last Filed Vital Signs Vital Sign Reading Time Taken Comments Blood Pressure 132/80 04/03/2023 1:50 PM EDT Pulse 65 04/03/2023 1:50 PM EDT Temperature - - Respiratory Rate - - Oxygen Saturation 96% 04/03/2023 1:50 PM EDT Inhaled Oxygen Concentration - - Weight 86 kg (189 lb 9.6 oz) 04/03/2023 1:50 PM EDT Height 170.2 cm (5' 7 ) 04/03/2023 1:50 PM EDT Body Mass Index 29.7 04/03/2023 1:50 PM EDT Plan of Treatment Health Maintenance Due Date Last Done Comments Pneumococcal Vaccine: 65+ Ye ars (2 of 2 - PPSV23 or PCV20) 08/17/2017 06/22/2017 Influenza Vaccine (#1) 2024 Hepatitis B Vaccine Aged Out No longe r eligible based on patient's age to complete this topic Insurance MEDICARE MEDICARE Care Teams Rotary Peel Oven Tender Relationship Specialty Start Date End Date Viral Dawson MD [address] [place] PCP - General Internal Medicine 03/22/21
[2024-11-21 13:53] LABS: Blood Urea Nitrogen 30 mg/dL (9-16); Estimated Glomerular Filt Rate 35
[2024-11-21 14:10] LABS: Thyroid Stimulating Hormone 13.51 uIU/mL (0.32-4.0)
== END 2024-11-21 12:09 | disposition home or self-care (01) ==
LOC: HO.LAB 12:08
PROVIDERS: PCP Internal Medicine; Visit Provider Internal Medicine Cardiovascular Disease
DX: Z13.29 Encounter for screening for other suspected endocrine disorder (principal); R91.1 Solitary pulmonary nodule
CPT/HCPCS: 36415; 82565; 84443; 84520

== ENCOUNTER 2024-11-28 10:26 | Outpatient (AMB) | payer MEDICARE, SELFPAY ==
[2024-11-28 10:28] VITALS: BP 140/72; BMI 26.1
--- NOTE | 2024-11-28 10:28 | HO.NEPHOV_ITS ---
Vital Signs 11/28/24 10:28 Height 5 ft 6 in Weight 162 lb BMI 26.1 BP 140/72 H Blood Pressure Location Lt brachial Position Sitting Intake Visit Reasons: 6 mon follow up/ LVM Certified Nurse Operating Room Required: No Accompanied by: Self / Same As Patient Allergies watermelon Allergy (Unknown, Verified 11/28/24 10:30) Unknown Medication List - Last Reconciled 11/28/24 by Jluis Pruett MD albuterol sulfate 90 mcg/actuation 2 puffs PO Q4H PRN calcium carbonate (Calcium 500) 500 mg PO DAILY cholecalciferol (vitamin D3) 50 mcg PO DAILY esomeprazole magnesium 20 mg PO DAILY levothyroxine 112 mcg PO DAILY ondansetron HCl mg PO PRN sertraline 100 mg PO DAILY sertraline 100 mg PO DAILY simvastatin 40 mg PO DAILY Spiriva with HandiHaler (tiotropium bromide) 1 cap PO DAILY NS spironolacton-hydrochlorothiaz 25-25 mg 1 tab PO DAILY HPI Comments Details: 73 yr old woman with h/o smoking and HTN with CKD Here for semiannual follow up Continues to smoke but sut down from 1PPD to half PPD PFSH Medical History Smoker Failed back syndrome of lumbar spine Hypertension Depression Hypertensive CKD (chronic kidney disease) Personal history of nicotine dependence Hyperlipidemia Obesity COPD (chronic obstructive pulmonary disease) Hypothyroidism Surgical History History of cataract surgery (~2015) History of breast biopsy History of lumbar fusion (~2006) History of excision of mass Venous insufficiency (~2015) History of carpal tunnel release (~2011) Family History Father Renal failure Mother Renal failure Brother Diabetes Social History Housing: House Alcohol intake: current Alcohol intake frequency: holidays/special occasions only Patient Tobacco Use Status: Current everyday Tobacco user Tobacco use type: Cigarette Cigarette Packs Per Day: 1 Cigarettes Per Day: 15 e-Cigarette/Vaping Use: Never Used Second Hand Smoke Exposure: Yes service: No Current occupational status: retired Current occupation: right handed Cognitive needs: No Hearing needs: No Vision needs: Yes (reading glasses) Physical Exam Vital Signs: Last Vital Signs BP 140/72 H 11/28/24 10:28 BMI result Body Mass Index 26.1 Const General: comfortable Nutritional Appearance: well nourished Orientation/consciousness: patient oriented x3 HEENT Head: No normal to inspection Mouth: moist mucous membranes Neck Neck: Yes supple and Yes no JVD Resp Auscultation: clear to auscultation bilaterally, no rales and rub present Cardio Jugular venous distension: no JVD Palpation: no palpable S3 and no palpable S4 Heart sounds: no rubs GI Palpation (GI): Soft to palpation and nontender Percussion: No Fluid wave present General: Yes no CVA tenderness Back/Spine/Pelvis Back: no CVA tenderness Skin General skin exam: no rashes or lesions noted Neuro General: patient oriented x3 Extrem General: Yes no pedal edema and No clubbing Results Reviewed Nephrology Results: Hgb 10.4 g/dl (12.0-16.0) L 06/13/24 WBC 6.1 X10*3/uL (4.8-10.8) 06/13/24 Plt Count 445 X10*3/uL (160-400) H 06/13/24 Sodium 140 mmol/L (135-145) 06/13/24 Potassium 3.8 mmol/L (3.3-5.1) 06/13/24 Chloride 102 mmol/L (96-108) 06/13/24 Carbon Dioxide 27 mmol/L (22-29) 06/13/24 BUN 30 mg/dL (9-16) H 11/21/24 Creatinine 1.47 mg/dL (0.5-1.4) H 11/21/24 Calcium 10.0 mg/dL (8.4-10.2) 06/13/24 Assessment & Plan Assessment & Plan (1) Hypertensive CKD (chronic kidney disease): Code(s): I12.9 - Hypertensive chronic kidney disease with stage 1 through stage 4 chronic kidney disease, or unspecified chronic kidney disease Category: Medical (2) CKD (chronic kidney disease): Code(s): N18.9 - Chronic kidney disease, unspecified Category: Medical Plan Elderly woman with CKD in a setting of HTN and obesity Creatinine is better and close to baseline Now at 1.47 No proteinuria Goal to keep SBP < 140 Avoid nephrotoxins including NSAIDS Needs to stop smoking; Discussed with patient. Bilateral simple cysts in kidney NO further follow up has been recommended Mild anemia No indication for Epogen Orders: Orders Basic Metabolic Panel 6 Months N18.9 - Chronic kidney disease, unspecified Coding Level of Care Code Est Pt Level 4 (16207) Diagnoses Hypertensive CKD (chronic kidney disease) I12.9 CKD (chronic kidney disease) N18.9
--- OUTSIDE RECORDS SUMMARY | 2024-11-28 11:36 | XMS_ITS | Encounter Summary ---
Author Organization [facility] Address [address] [place] [address] Care Team Providers Care Veterinary Technician Instructor Name Role Phone Kale Isaacs Primary Care Provider Tonny Bonner Primary Care Provider Luis Carlos dunbar Encounter Details Date Type Department Care Team Description 06/23/2014 Transfer Records Medical Records [address] [place] [address] Kale Isaacs Social History Tobacco Use Types Packs/Day Years Used Date Smoking Tobacco: Every Day Cigarettes 1 Alcohol Use Standard Drinks/Week Comments Yes 0 (1 standard drink = 0.6 oz pur e alcohol) occasionally Sex Assigned at Date Recorded Not on file Job Start Date Occupation Industry Not on file Not on file Not on file documented as of this encounter Plan of Treatment Not on file documented as of this encounter Visit Diagnoses Not on filedocumented in this encounter Care Teams Veterinary Technician Instructor Relationship Specialty Start Date End Date Kale Isaacs PCP - General 10/28/06 08/11/16 Tonny Abreu PCP - General Family Practice 08/12/16 documented as of this encounter
--- OUTSIDE RECORDS SUMMARY | 2024-11-28 11:36 | XMS_ITS | Encounter Summary ---
Author Organization [facility] Address [address] [facility] [address] [place] [address] Phone Care Team Providers Care Telecommunication Systems Designer Name Role Phone Viral Dawson MD Primary Care Provider [phone] Reason for Visit * Reason Comments Med Refill Encounter Details Date Type Department Care Team (Late st Contact Info) Description 11/26/2024 Refill [facility] [address] [place] [phone] Keyon Dumont MD [address] [facility] [address] [place] [phone] Hypertensive chronic kidney disease, unspecified, with chronic kidney disease stage I through stage IV, or unspecified; Stage 3b chronic kidney disease (HCC) Social History Tobacco Use Types Packs/Day Years Used Date Smoking Tobacco: Some Days Cigarettes 1 56 Started: [birth year]/11/1961; Last attempted to quit: 12/12/2019 Smokeless Tobacco: Current Comments:Restarted smoking s ummer 2020 - of best friend. Currently struggling to quit again. Alcohol Use Standard Drinks/Week Comments Yes 0 (1 standard drink = 0.6 oz pur e alcohol) Do not drink every day/week Comments Unknown Sex and Gender Information Value Date Recorded Sex Assigned at Not on file Legal Sex Female 4:50 PM EST Gender Identity Not on file Sexual Orientation Not on file documented as of this encounter Plan of Treatment Not on file documented as of this encounter Visit Diagnoses Diagnosis Hypertensive chronic kidney disease, unspecified, with chronic kidney disease stage I through stage IV, or unspecified Stage 3b chronic kidney disease (HCC) documented in this encounter Care Teams Telecommunication Systems Designer Relationship Specialty Start Date End Date Viral Dawson MD [address] [place], [place] PCP - General Internal Medicine 03/22/21 documented as of this encounter
--- OUTSIDE RECORDS SUMMARY | 2024-11-28 11:36 | XMS_ITS | Clinical Summary ---
Author Organization [facility] Address [address] [place] [address] Phone Care Team Providers Care Ophthalmology Surgical Technician Name Role Phone Viral Dawson MD Primary Care Provider [phone] Allergies No known active allergies Medications albuterol [...] ( moderate disability ) on 12/06/21; updated [place] Back Pain Scale: 23 on 12/06/21initial Oswestry Disability Questionnaire: 26% ( moderate disability ) on 04/28/21; initial [place] Back Pain Scale: 23 on 04/28/21 Chronic kidney disease stage 3 12/30/2020 Hypercholesterolemia 05/09/2013 Hypertension 05/09/2013 Hypothyroidism 05/09/2013 Encounters Date Type Department Care Team Description 11/26/2024 Refill [facility] [address] [place] [address] Keyon Dumont MD Hypertensive chronic kidney disease, unspecified, with chronic kidney disease stage I through stage IV, or unspecified; Stage 3b chronic kidney disease (HCC) from Last 3 Months Immunizations Name Administration Dates Next Due Pneumococcal [...] patient's age to complete this topic Insurance [id number] [place] [address] [facility] MEDICARE Care Teams Ophthalmology Surgical Technician Relationship Specialty Start Date End Date Viral Dawson MD [address] [place], [place] PCP - General Internal Medicine 03/22/21
--- OUTSIDE RECORDS SUMMARY | 2024-11-28 11:36 | XMS_ITS | Encounter Summary ---
Author Organization [facility] Address [address] [place] [address] Care Team Providers Care Personnel Associate Name Role Phone Kale Isaacs Primary Care Provider Unavailabl e Marvin Walter Primary Care Provider [phone] Tonny Abreu Primary Care Provider Unavailkiarra e Encounter Details Date Type Department Care Team Description 10/25/2005 Hospital Medical Records [address] [place] [address] Abstract, Provider Social History Tobacco Use Types Packs/Day Years [...] on filedocumented in this encounter Care Teams Personnel Associate Relationship Specialty Start Date End Date Kale Isaacs PCP - General 10/28/06 08/11/16 Marvin Walter [address] [place] [address] PCP - General 06/09/1991 10/27/06 Tonny Abreu [address] [place] [address] PCP - General Family Practice 08/12/16 documented as of this encounter
--- OUTSIDE RECORDS SUMMARY | 2024-11-28 11:36 | XMS_ITS | Clinical Summary ---
Author Organization [facility] Address [address] [place] [address] Care Team Providers Care Project Construction Manager Name Role Phone Tonny Abreu DO Primary Care Provider [phone] Surgical History Surgery Date Site/Laterality Comments BACK [...] COMMENT: benign etiology BREAST SURGERY Left PROCEDURE: CT UNLISTED PROCEDURE BREAST; COMMENT: benign Family History [...] Upcoming Encounters Date Type Department Care Team ([facility] Contact Info) Description 07/21/2025 1:30 PM EDT Appointment Radiology Department [address] [address] Health Maintenance Due Date Last Done Comments DTaP,Tdap,and Td Vaccines (1 - Tdap) 01/18/1967 Pneumococcal Vaccine: 50+ Years (1 of 2 - PCV) 01/18/1967 Zoster Vaccines (1 of 2) 01/18/1998 [...] patient's age to complete this topic Meningococcal B Vacine Aged Out No lo nger eligible based on patient's age to complete [...] Breast cancer risk category Low (<15%) Location: [facility], [address] [place] [address], [address], [phone] Procedure Note Thu Ivan MD - 07/24/2024 [...] Breast cancer risk category Low (<15%) Location: [facility], [address] [place] [address], [address], [phone] Viral Dawson MD IMG XR PROCEDURES Final Result from Last 3 Months or Most Recently Relevant to Health Maintenance Care Teams Project Construction Manager Relationship Specialty Start Date End Date Tonny Abreu DO [address] [place] [address] PCP - General 08/12/16
--- OUTSIDE RECORDS SUMMARY | 2024-11-28 11:36 | XMS_ITS | Clinical Summary ---
Author Organization [facility] Address [address] [place] [address] Care Team Providers Care Tosser Name Role Phone Tonny Abreu Primary Care Provider Unavailabl e Allergies No known active allergies Medications Medication Sig Dispensed Refills Start Date End Date Status SPIRONOLACTONE 25 MG OR TABS 1 TABLET Three times daily 0 Active ASPIRIN 325 MG OR TABS 1 daily 0 Ac tive LASIX 80 MG OR TABS 1 TABLET DAILY 0 A ctive CALCITRATE/VITAMIN D 315-200 MG-UNIT OR TABS daily 0 Active FLUOXETINE HCL OR 60mg qd 30 0 03/09/2006 Active lisinopril (PRINIVIL,ZESTRIL) 2.5 MG tablet Take 2.5 mg by mouth daily. 0 Active simvastatin (ZOCOR) 40 MG tablet Take 40 mg by mouth at bedtime. 0 Active levothyroxine 125 MCG tablet Take 125 mcg by mouth daily. 0 Active Active Problems Problem Noted Date Hypertension 05/09/2013 Hypercholesterolemia 05/09/2013 Hypothyroid 05/09/2013 Family History Medical History Relation Name Comments CA Breast Aunt mat x 2 No Known Problems Daughter No Known Problems Father No Known Problems Maternal Grandfather No Known Problems Maternal Grandmother No Known Problems Mother No Known Problems Other No Known Problems Paternal Grandfather No Known Problems Paternal Grandmother No Known Problems Sister CA Colon Negative Hx CA Ovarian Negative Hx Relation Name Status Comments Aunt mat [...] file Not on file Not on file Last Filed Vital Signs Vital Sign Reading Time Taken Comments Blood Pressure 132/78 08/15/2016 10:27 AM EST Pulse 52 08/15/2016 10:27 AM EST Temperature 37.3 ??C (99.1 ??F) 11/21/2005 9:24 AM ES T Respiratory Rate 16 08/15/2016 10:27 AM EST Oxygen Saturation - - Inhaled Oxygen Concentration - - Weight 90.3 kg (199 lb) 08/15/2016 10:27 AM EST Height 172.7 cm (5' 8 ) 08/15/2016 10:27 AM EST Body Mass Index 30.26 08/15/2016 10:27 AM EST Plan of Treatment Health Maintenance Due Date Last Done Comments Covid-19 Vaccine (#1) 1950 HEPATITIS C SCREENING 01/18/1966 TOBACCO CHECK/ADVISE 01/18/1966 SHINGLES VACCINE (1 of 2) 01/18/1998 CHOLESTEROL SCREENING 05/09/2018 05/09/2013 (External Completion), 12/25/2004, 11/01/2003, Additional history exists INFLUENZA (#1) 2024 07/19/2017, 07/19/2016 BMI CHECK/ADVISE 10/09/2024 08/15/2016, 05/12/2014 MAMMOGRAM 06/28/2025 06/28/2024, 05/05/2023, 02/11/2022, Additional history exists BONE DENSITY SCREENING 09/13/2028 3 (External Completion), 08/27/2002, 08/27/2002 DTAP/TDAP/TD (3 - Td or Tdap) 07/10/2029 07/10/2019, 06/12/2013 PNEUMOCOCCAL VACCINE Completed 02/28/2018, 2017, 01/08/2016, Additional history exists Care Teams Tosser Relationship Specialty Start Date End Date Tonny Abreu PCP - General Family Practice 08/12/16
== END 2024-11-28 10:47 | disposition home or self-care (01) ==
PROVIDERS: PCP Internal Medicine; Visit Provider Internal Medicine Hypertension Specialist
DX: I12.9 Hypertensive chronic kidney disease with stage 1 through stage 4 chronic kidney disease, or unspecified chronic kidney disease (principal); N18.9 Chronic kidney disease, unspecified
CPT/HCPCS: 99214

== ENCOUNTER → 2024-11-28 10:26 | Outpatient (BNVA) | payer MEDICARE, SELFPAY | PROVIDERS: PCP Internal Medicine; Visit Provider Internal Medicine Hypertension Specialist | DX: I12.9 Hypertensive chronic kidney disease with stage 1 through stage 4 chronic kidney disease, or unspecified chronic kidney disease (principal); N18.9 Chronic kidney disease, unspecified | CPT/HCPCS: 99212 ==

== ENCOUNTER 2024-12-04 09:48 | Outpatient (REF) | payer MEDICARE, SELFPAY ==
--- NOTE | ~2024-12-04 | CT_ITS ---
EXAMINATION: CT CHEST WITH CONTRAST CLINICAL INFORMATION: Solitary pulmonary nodule COMPARISON: CT dated March 17, 2024. TECHNIQUE: Multidetector volumetric CT imaging of the chest was obtained after the administration of 65 mL of Omnipaque 350 intravenous contrast without immediate adverse reactions. Axial MIP volume rendering provided. Sagittal and coronal reformatted images were obtained. This CT examination was performed using dose optimization techniques as appropriate, variously including the following: *Automated exposure control *Adjustment of mA and/or kV according to patient size (this includes techniques or standardized protocols for targeted exams where dose is matched to indication/reason for exam; i.e. extremities or head) *Use of iterative reconstruction technique. DLP: 91 mGy centimeter FINDINGS: HOME AGENT: The upper extremities both sides of the head. Hiatal hernia. LUNGS: There is a lobulated 9 mm noncalcified pulmonary nodule in the peribronchial septal of the lingula region. No bronchiectasis. No honeycombing. There are secretions within the lumen of the airways extending from the trachea to the left and right pulmonary bronchi. MEDIASTINUM: No lymphadenopathy in the mediastinum or perihilar. Calcified plaques in the thoracic aorta and its main branches. No aneurysm or dissection. Calcified plaques in the coronary arteries. No pericardial effusion. Hiatal hernia, moderate to large volume. PLEURA: No pleural effusion. No pneumothorax. No hemothorax. AXILLA: No lymphadenopathy. UPPER ABDOMEN: Exophytic cystic lesions in the upper pole both kidneys. Renal cortical deformity bilaterally. Hiatal hernia. OSSEOUS STRUCTURES: Multilevel lower thoracic and upper lumbar spondylosis, moderate to severe. No acute fracture or listhesis. No lytic or blastic lesions. CT/CT chest w IV con IMPRESSION: 9 mm noncalcified pulmonary nodule, lingula. Stable. Concerning aspiration. Hernia, moderate to large volume. Multifocal cystic lesions in the kidneys. Spondylosis, lower thoracic and upper lumbar spine. Fleischner guidelines were followed. Electronically signed by: Jay Castrejon MD 12/04/2024 03:59 PM EST
[2024-12-04] MEDS: iohexoL 350 MG/ML 100 ML INFUS..BTL IV (10:28)
--- OUTSIDE RECORDS SUMMARY | 2024-12-04 11:27 | XMS_ITS | Clinical Summary ---
Author Organization [facility] Address [address] [place] [address] Care Team Providers Care Copy Technician Name Role Phone Tonny Abreu DO Primary Care Provider [phone] Surgical History Surgery Date Site/Laterality Comments BACK [...] COMMENT: benign etiology BREAST SURGERY Left PROCEDURE: [place] UNLISTED PROCEDURE BREAST; COMMENT: benign Family History [...] Upcoming Encounters Date Type Department Care Team ([facility] Contact Info) Description 07/21/2025 1:30 PM EDT Appointment Radiology Department [address] [address] Health Maintenance Due Date Last Done Comments [...] risk category Low (<15%) Location: [facility], [address] [place] [address], [address], [phone] Procedure Note Thu Ivan MD - 07/24/2024 [...] risk category Low (<15%) Location: [facility], [address] [place] [address], [address], [phone] Viral Dawson MD IMG XR PROCEDURES Final Result from Last 3 Months or Most Recently Relevant to Health Maintenance Care Teams Copy Technician Relationship Specialty Start Date End Date Tonny Abreu DO [address] [place] [address] PCP - General 08/12/16
--- OUTSIDE RECORDS SUMMARY | 2024-12-04 11:27 | XMS_ITS | Clinical Summary ---
Author Organization [facility] Address [address] [place] [address] Phone Care Team Providers Care Dock Clerk Name Role Phone Viral Dawson MD Primary Care Provider [phone] Allergies No known active allergies Medications albuterol [...] time each day 90 tablet 3 12/06/2023 Active Active Problems Problem Noted Date Diagnosed Date Somatization disorder 04/21/2022 Patient encounter status 04/21/2022 Overview (04/21/2022): SOAP-R 04/28/2021-12 Obese class I 04/21/2022 Nicotine dependence 04/21/2022 Finding of activity of daily living 04/21/2022 Overview (04/21/2022): updated Oswestry Disability Questionnaire: 30% ( moderate disability ) on 12/06/21; updated [place] Back Pain Scale: 23 on 12/06/21initial Oswestry Disability Questionnaire: 26% ( moderate disability ) on 04/28/21; initial [place] Back Pain Scale: 23 on 04/28/21 Chronic kidney disease stage 3 12/30/2020 Hypercholesterolemia 05/09/2013 Hypertension 05/09/2013 Hypothyroidism 05/09/2013 Encounters Date Type Department Care Team Description 11/26/2024 Refill [facility] [address] [place] [address] Keyon Dumont MD Hypertensive chronic kidney disease, [...] patient's age to complete this topic Insurance [facility] MEDICARE [facility] MEDICARE Care Teams Dock Clerk Relationship Specialty Start Date End Date Viral Dawson MD [address] [place] PCP - General Internal Medicine 03/22/21
--- OUTSIDE RECORDS SUMMARY | 2024-12-04 11:27 | XMS_ITS | Encounter Summary ---
Author Organization [facility] Address [address] [place] [address] Care Team Providers Care Restorer Lace And Textiles Name Role Phone Kale Isaacs Primary Care Provider Tonny Bonner Primary Care Provider Luis Carlos dunbar Encounter Details Date Type Department Care Team Description 06/23/2014 Transfer Records Medical Records [address] [place] [address] Kale Isaacs Social History Tobacco Use Types [...] on filedocumented in this encounter Care Teams Restorer Lace And Textiles Relationship Specialty Start Date End Date Kale Isaacs PCP - General 10/28/06 08/11/16 Tonny Abreu PCP - General Family Practice 08/12/16 documented as of this encounter
--- OUTSIDE RECORDS SUMMARY | 2024-12-04 11:28 | XMS_ITS | Encounter Summary ---
Author Organization [facility] Address [address] [facility] [address] [place] [address] Phone Care Team Providers Care Golf Ball Molder Name Role Phone Viral Dawson MD Primary Care Provider [phone] Reason for Visit * Reason Comments Med Refill Encounter Details Date Type Department Care Team (Late st Contact Info) Description 11/26/2024 Refill [facility] [address] [place] [phone] Keyon Dumont MD [address] [facility] [address] [place] [phone] Hypertensive chronic kidney disease, unspecified, with chronic [...] (HCC) documented in this encounter Care Teams Golf Ball Molder Relationship Specialty Start Date End Date Viral Dawson MD [address] [place], [place] PCP - General Internal Medicine 03/22/21 documented as of this encounter
--- OUTSIDE RECORDS SUMMARY | 2024-12-04 11:28 | XMS_ITS | Clinical Summary ---
Author Organization [facility] Address [address] [place] [address] Care Team Providers Care Diesel Locomotive Firer Name Role Phone Tonny Abreu Primary Care [...] 2017, 01/08/2016, Additional history exists Care Teams Diesel Locomotive Firer Relationship Specialty Start Date End Date Tonny Abreu PCP - General Family Practice 08/12/16
== END 2024-12-04 09:49 | disposition home or self-care (01) ==
LOC: HO.CT 09:48
PROVIDERS: PCP Internal Medicine; Visit Provider Surgery
DX: R91.1 Solitary pulmonary nodule (principal); F17.200 Nicotine dependence, unspecified, uncomplicated
CPT/HCPCS: 71260; Q9967

== ENCOUNTER → 2024-12-04 09:49 | Outpatient (BNV) | payer MEDICARE, SELFPAY | PROVIDERS: PCP Internal Medicine; Visit Provider Radiology Diagnostic Radiology | DX: R91.1 Solitary pulmonary nodule (principal) | CPT/HCPCS: 71260 ==

== ENCOUNTER 2024-12-17 10:49 | Outpatient (AMB) | payer MEDICARE, SELFPAY ==
[2024-12-17 11:36] VITALS: BP 140/72; PULSE 62; O2SAT 92; BMI 25.5
--- NOTE | 2024-12-17 11:36 | MHC.OFFVIS ---
Vital Signs 12/17/24 11:36 Height 5 ft 6 in Weight 158 lb BMI 25.5 BP 140/72 H Blood Pressure Location Lt brachial Position Sitting Pulse 62 Pulse Source Pulse Oximeter Pulse Oximetry (%) 92 Oxygen Delivery Method Room Air Intake Visit Reasons: copd Intake Note: pt is here for follow up and states she is feeling good today only intermittent shortness of breath Occupational Therapist Assistant Required: No Allergies watermelon Allergy (Unknown, Verified 12/17/24 11:53) Unknown Medication List - Last Reconciled 12/17/24 by Guera Herrera MD albuterol sulfate 90 mcg/actuation 2 puffs PO Q4H PRN calcium carbonate (Calcium 500) 500 mg PO DAILY cholecalciferol (vitamin D3) 50 mcg PO DAILY esomeprazole magnesium 20 mg PO DAILY levothyroxine 112 mcg PO DAILY ondansetron HCl mg PO PRN sertraline 100 mg PO DAILY simvastatin 40 mg PO DAILY Spiriva with HandiHaler (tiotropium bromide) 1 cap PO DAILY NS spironolacton-hydrochlorothiaz 25-25 mg 1 tab PO DAILY Do you need a note to return to daycare/school/sports/work: No HPI HPI copd: Details: 74 YEARS OLD VERY PLEASANT FEMALE IS HERE FOR 6 MONTHS FOLLOW-UP FOR HER COPD. STILL SMOKING BUT HAS CUT DOWN TO 10 CIGARETTES A DAY. MILD INTERMITTENT COUGH WHICH IS MOSTLY RELATED TO SMOKING. SHE GETS SHORT OF BREATH ON WALKING BUT DOES NOT. WALK MUCH ANYWAY MAIN ISSUE TODAY IS THAT INSURANCE WILL NOT COVER FOR SPIRIVA SO SHE NEEDS AN ALTERNATIVE AGENT. [facility]LY [facility] Medical History Smoker Failed back syndrome of lumbar spine Hypertension Depression Hypertensive CKD (chronic kidney disease) Personal history of nicotine dependence Hyperlipidemia Obesity COPD (chronic obstructive pulmonary disease) Hypothyroidism Surgical History History of cataract surgery (~2015) History of breast biopsy History of lumbar fusion (~2006) History of excision of mass Venous insufficiency (~2015) History of carpal tunnel release (~2011) Family History Father Renal failure Mother Renal failure Brother Diabetes Social History Housing: House Alcohol intake: current Alcohol intake frequency: holidays/special occasions only Patient Tobacco Use Status: Current everyday Tobacco user Tobacco use type: Cigarette Cigarette Packs Per Day: 1 Cigarettes Per Day: 15 e-Cigarette/Vaping Use: Never Used Second Hand Smoke Exposure: Yes service: No Current occupational status: retired Current occupation: right handed Cognitive needs: No Hearing needs: No Vision needs: Yes (reading glasses) Review of Systems Const All systems reviewed & are unremarkable except as noted in HPI and below ENT Reports no additional complaints Card Denies chest pain, Denies irregular heart rhythm and Denies leg edema Resp Reports as per HPI GI Reports heartburn (Controlled with med) Reports no additional complaints Musc Reports no additional complaints Skin/Breast Reports system reviewed and no additional complaints, except as documented Neuro Reports no additional complaints Psych Reports depression (Controlled with med) Endo Reports other (Thyroid controlled with med) Aller/Immun Reports no additional complaints Physical Exam Vital Signs: Last Vital Signs Pulse 62 12/17/24 11:36 BP 140/72 H 12/17/24 11:36 Pulse Ox 92 12/17/24 11:36 Oxygen Delivery Method Room Air 12/17/24 11:36 BMI result Body Mass Index 25.5 Const General: comfortable, no acute distress, alert and awake Orientation/consciousness: patient oriented x3 HEENT Head: Yes normal to inspection General nose exam: No nasal polyps present and No nasal discharge present Face and sinus: Yes sinuses nontender Mouth: oropharynx normal Throat: Yes posterior oropharynx normal Eyes General: appearance normal, both eyes and all related structures Neck Neck: Yes normal visual inspection, Yes no lymphadenopathy, Yes trachea midline and Yes no JVD Thyroid: Thyroid normal Chest Chest palpation & inspection: normal inspection of the chest, normal palpation of entire chest wall and no tenderness Resp Other: Percussion note resonant, breath sounds are distant with prolonged expiratory phase. But no crepitations or wheezes are heard. Cardio Palpation: normal PMI Rate: regular rate Rhythm: regular rhythm Heart sounds: no gallops and no murmurs GI Palpation (GI): Soft to palpation, nontender, No hepatosplenomegaly present and no masses Auscultation: normal bowel sounds Back/Spine/Pelvis Thoracic/Lumbar Spine: thoracic and lumbar spine normal to inspection Skin General skin exam: no rashes or lesions noted Neuro General: patient oriented x3 and no focal motor deficits Cranial nerves: Yes CN's II-XII intact bilaterally Extrem General: Yes normal to inspection, Yes no clubbing, cyanosis or edema and Yes no calf tenderness Psych Appearance: grossly normal and well kempt Speech and movement: Normal speech and movement present Assessment & Plan Assessment & Plan (1) COPD (chronic obstructive pulmonary disease): Comment: THIS PATIENT DOES HAVE CHRONIC OBSTRUCTIVE PULMONARY DISEASE, MILD TO MODERATE, SEEMS TO BE WELL CONTROLLED WITH HER CURRENT REGIMEN. MILD INTERMITTENT COUGH EXPECTED SECONDARY TO SMOKING. Code(s): J44.9 - Chronic obstructive pulmonary disease, unspecified Category: Medical Plan: CHANGE SPIRIVA TO INCRUSE ELLIPTA 1 INHALATION DAILY ALBUTEROL HFA 2 PUFFS Q 6 HOURS P.R.N. (2) Personal history of nicotine dependence: Comment: (50+PYH) As noted in the history she resumed smoking. Counseled to quit again. She wants to try , Nicoblock,which she has ordered for herself. Claims that she has cut down to 10 cigarettes a day and is trying to cut it further, Code(s): Z87.891 - Personal history of nicotine dependence Category: Medical Plan: Discuss about smoking and it is essential that she should try to quit completely (3) Pulmonary nodule: Comment: (6x10mm MASON nodule on 10/29/21 LDCT) last LDCT on 05/20/22 ,No new change . LAST CT SCAN ON 04/23 NO FURTHER CHANGE IN THE SIZE OF PULMONARY NODULE IN LEFT UPPER LOBE. She is participating in annual lung screening program. Code(s): R91.1 - Solitary pulmonary nodule Category: Medical Plan: Encouraged that she should continue to have annual CT scan for follow-up Coding Level of Care Code Est Pt Level 3 (78502) Diagnoses COPD (chronic obstructive pulmonary disease) J44.9 Personal history of nicotine dependence Z87.891 Pulmonary nodule R91.1
--- OUTSIDE RECORDS SUMMARY | 2024-12-17 13:08 | XMS_ITS | Clinical Summary ---
Author Organization [facility] Address [address] [place] [address] Phone Care Team Providers Care Pet Ambassador Name Role Phone Viral Dawson MD Primary Care Provider [phone] Allergies No known active allergies Medications albuterol [...] ( moderate disability ) on 12/06/21; updated [place] Back Pain Scale: 23 on 12/06/21initial Oswestry Disability Questionnaire: 26% ( moderate disability ) on 04/28/21; initial [place] Back Pain Scale: 23 on 04/28/21 Chronic kidney disease stage 3 12/30/2020 Hypercholesterolemia 05/09/2013 Hypertension 05/09/2013 Hypothyroidism 05/09/2013 Encounters Date Type Department Care Team Description 11/26/2024 Refill [facility] [address] [place] [address] Keyon Dumont MD Hypertensive chronic kidney disease, [...] patient's age to complete this topic Insurance [facility] MEDIC[facility] MED[facility] Care Teams Pet Ambassador Relationship Specialty Start Date End Date Viral Dawson MD [address] [place] PCP - General Internal Medicine 03/22/21
--- OUTSIDE RECORDS SUMMARY | 2024-12-17 13:08 | XMS_ITS | Encounter Summary ---
Author Organization [facility] Address [address] [facility] [address] [place] [address] Phone Care Team Providers Care Art Specialist Name Role Phone Viral Dawson MD Primary Care Provider [phone] Reason for Visit * Reason Comments Med Refill Encounter Details Date Type Department Care Team (Late st Contact Info) Description 11/26/2024 Refill [facility] [address] [facility] [address] [place] [phone] Keyon Dumont MD [address] [facility] [address] [place] [phone] Hypertensive chronic kidney disease, unspecified, with chronic [...] (HCC) documented in this encounter Care Teams Art Specialist Relationship Specialty Start Date End Date Viral Dawson MD [address] [place], [place] PCP - General Internal Medicine 03/22/21 documented as of this encounter
--- OUTSIDE RECORDS SUMMARY | 2024-12-17 13:08 | XMS_ITS | Clinical Summary ---
Author Organization [facility] Address [address] [place] [address] Care Team Providers Care Floor Tech Name Role Phone Tonny Abreu DO Primary Care Provider [phone] Surgical History Surgery Date Site/Laterality Comments BACK [...] COMMENT: benign etiology BREAST SURGERY Left PROCEDURE: [place] UNLISTED PROCEDURE BREAST; COMMENT: benign Family History [...] Upcoming Encounters Date Type Department Care Team ([facility] Contact Info) Description 07/21/2025 1:30 PM EDT Appointment Radiology Department [address] [address] Health Maintenance Due Date Last Done Comments [...] Breast cancer risk category Low (<15%) Location: [facility], [address] [place] [address], [address], [phone] Procedure Note Thu Ivan MD - 07/24/2024 [...] Breast cancer risk category Low (<15%) Location: [facility], [address] [place] [address], [address], [phone] Viral Dawson MD IMG XR PROCEDURES Final Result from Last 3 Months or Most Recently Relevant to Health Maintenance Care Teams Floor Tech Relationship Specialty Start Date End Date Tonny Abreu DO [address] [place] [address] PCP - General 08/12/16
== END 2024-12-17 11:54 | disposition home or self-care (01) ==
LOC: HO.HPS 10:50
PROVIDERS: PCP Internal Medicine; Visit Provider Internal Medicine
DX: J44.9 Chronic obstructive pulmonary disease, unspecified (principal); Z87.891 Personal history of nicotine dependence; R91.1 Solitary pulmonary nodule
CPT/HCPCS: 99213

== ENCOUNTER → 2024-12-17 10:49 | Outpatient (BNVA) | payer MEDICARE, SELFPAY | PROVIDERS: PCP Internal Medicine; Visit Provider Internal Medicine | DX: J44.9 Chronic obstructive pulmonary disease, unspecified (principal); R91.1 Solitary pulmonary nodule; Z87.891 Personal history of nicotine dependence | CPT/HCPCS: 99212 ==

== ENCOUNTER 2024-12-18 11:06 | Outpatient (AMB) | payer MEDICARE, SELFPAY ==
[2024-12-18 11:15] VITALS: BP 126/78; BMI 25.5
--- NOTE | 2024-12-18 11:15 | MHC.PC.OV ---
Vital Signs 12/18/24 11:15 Height 5 ft 6 in Weight 158 lb BMI 25.5 BP 126/78 Blood Pressure Location Lt brachial Position Sitting Intake Visit Reasons: 3mth f/u Intake Note: Patient here for a 3 month follow up Career Development Director Required: No Accompanied by: Self / Same As Patient Allergies watermelon Allergy (Unknown, Verified 12/18/24 11:20) Unknown Tobacco use date assessed: 12/18/24 Fall risk assessment: No Falls in past year Last assessed Fall Risk: 12/18/24 Dental Screening Dental Screen Date: 12/18/24 Did you have a dental visit in the last 12 months?: Yes Did you have a dental problem in the last 6 months where you did not have access to dental care?: No Was dental information given to patient?: Patient has dentist HPI 3mth f/u HPI Details hypothyroidism on rx; TSH 13 in Nov and dose increased PFSH Medical History Smoker Failed back syndrome of lumbar spine Hypertension Depression Hypertensive CKD (chronic kidney disease) Personal history of nicotine dependence Hyperlipidemia Obesity COPD (chronic obstructive pulmonary disease) Hypothyroidism Surgical History History of cataract surgery (~2015) History of breast biopsy History of lumbar fusion (~2006) History of excision of mass Venous insufficiency (~2015) History of carpal tunnel release (~2011) Family History Father Renal failure Mother Renal failure Brother Diabetes Social History Housing: House Alcohol intake: current Alcohol intake frequency: holidays/special occasions only Patient Tobacco Use Status: Current everyday Tobacco user Tobacco use type: Cigarette Cigarette Packs Per Day: 1 Cigarettes Per Day: 15 e-Cigarette/Vaping Use: Never Used Second Hand Smoke Exposure: Yes service: No Current occupational status: retired Current occupation: right handed Cognitive needs: No Hearing needs: No Vision needs: Yes (reading glasses) Questionnaire PHQ-9 Over the last 2 weeks, how often have you been bothered by any of the following problems? 1. Little interest or pleasure in doing things: several days 2. Feeling down, depressed, or hopeless: several days 3. Trouble falling or staying asleep, or sleeping too much: several days 4. Feeling tired or having little energy: not at all 5. Poor appetite or overeating: not at all 6. Feeling bad about yourself - or that you are a failure or have let yourself or your family down: not at all 7. Trouble concentrating on things, such as reading the newspaper or watching television: not at all 8. Moving or speaking so slowly that other people could have noticed. Or the opposite - being so fidgety or restless that you have been moving around a lot more than usual: not at all 9. Thoughts that you would be better off or of hurting yourself in some way: not at all Total score: 3 Depression Screening Interpretation: Positive Depression Screening Done: Yes Source: Developed by Drs. Ketan Kramer, Sushila Sorto, Conor Foley and colleagues, with an educational logan from [employer]. Thrive Questionnaire Date Thrive assessed: 12/18/24 I am a: Patient What is your living situation today?: I have a steady place to live Within the past 12 months, did the food you bought not last and you didn't have the money to get more?: Never true Within the past 12 months, did you worry whether your food would run out before you got money to buy more?: Never true Do you have trouble paying for medicines?: No Do you have trouble getting transportation to medical appointments?: No Do you have trouble paying your heating and electricity bill?: No Do you have trouble taking care of your child, family member or friend?: No Do you have trouble with day-to-day activities such as bathing, preparing meals, shopping, managing finances, etc.?: No Are you currently unemployed and looking for a job?: No Are you interested in more education?: No Please select the resources that you would like help with: None Currently or been in a relationship where the following occur: No concerns reported THRIVE Score: 0 AUDIT C Alcohol Use Questionnaire (AUDIT-C) 1. How often do you have a drink containing alcohol?: Monthly or less 2. How many drinks containing alcohol do you have on a typical day when you are drinking?: 1 or 2 3. How often do you have six or more drinks on one occasion?: Less than monthly Total Score: 2 KINGLSEY-7 AMB Questionnaire KINGSLEY-7 Date KINGSLEY - 7 assessed: 12/18/24 Feeling nervous, anxious, or on edge: 0 = Not at all Not being able to stop or control worryin = Not at all Worrying too much about different things: 0 = Not at all Trouble relaxin = Not at all Being so restless that it is hard to sit still: 0 = Not at all Becoming easily annoyed or irritable: 0 = Not at all Feeling afraid as if something awful might happen: 0 = Not at all Total KINGSLEY-7 score (0-4 normal; 5-9 mild; 10-14 moderate; 15-21 severe): 0 Source: Developed by Drs. Ketan Kramer, Sushila Sorto, Conor Foley and colleagues, with an educational logan from [employer]. Review of Systems Const Denies chills, Denies headache(s) and Denies weight loss ENT Denies headache(s) Card Denies chest pain, Denies syncope, Denies irregular heart rhythm and Denies dyspnea Resp Denies chest congestion, Denies cough and Denies dyspnea GI Denies abdominal pain, Denies change in stool character, Denies nausea and Denies vomiting Musc Denies deformity and Denies joint swelling Neuro Denies syncope and Denies headache(s) Physical exam (Primary Care) Vital Signs: Last Vital Signs BP 126/78 12/18/24 11:15 BMI result Body Mass Index 25.5 Tobacco/Smoking Status: Tobacco use Status Tobacco use date assessed 12/18/24 12/18/24 11:22 Patient Tobacco Use Status Current everyday Tobacco 12/18/24 11:17 Tobacco use type Cigarette 12/18/24 11:17 e-Cigarette/Vaping Use Never Used 12/18/24 11:17 PHQ-9: PHQ-9 Score PHQ-9: Total score 3 12/18/24 11:22 Depression Screening Interpretation: Positive Thrive Assessment: Date of Thrive Assessment Date Thrive assessed 12/18/24 12/18/24 11:22 Currently or been in a relationship where the following occur: No concerns reported Const General: cooperative, comfortable, no acute distress and alert Neck Neck: Yes no lymphadenopathy Thyroid: Thyroid normal Resp Effort & Inspection: normal respiratory effort Auscultation: clear to auscultation bilaterally Percussion: percussion normal Cardio Jugular venous distension: no JVD Palpation: normal PMI Rate: regular rate Rhythm: regular rhythm Heart sounds: S1 normal heart sound present and S2 normal heart sound present GI Inspection: Yes normal to inspection Palpation (GI): No hepatosplenomegaly present Skin General skin exam: no rashes or lesions noted Extrem General: Yes no clubbing, cyanosis or edema Coding Level of Care Code Est Pt Level 3 (87427) Diagnoses Hypothyroidism E03.9 Assessment & Plan Assessment & Plan (1) Hypothyroidism: Code(s): E03.9 - Hypothyroidism, unspecified Category: Medical Plan: same rx and re check tsh in a month
--- OUTSIDE RECORDS SUMMARY | 2024-12-18 13:06 | XMS_ITS | Encounter Summary ---
Author Organization [facility] Address [address] [place] [address] Care Team Providers Care Online Merchandising Specialist Name Role Phone Kale Isaacs Primary Care Provider Tonny Bonner Primary Care Provider Luis Carlos dunbar Encounter Details Date Type Department Care Team Description 02/22/2011 Business Doc Medical Records [address] [place] [address] Abstract, Provider Social History Tobacco Use Types [...] on filedocumented in this encounter Care Teams Online Merchandising Specialist Relationship Specialty Start Date End Date Kale Isaacs PCP - General 10/28/06 08/11/16 Tonny Abreu PCP - General Family Practice 08/12/16 documented as of this encounter
--- OUTSIDE RECORDS SUMMARY | 2024-12-18 13:06 | XMS_ITS | Clinical Summary ---
Author Organization [facility] Address [address] [facility] [place] [address] Phone Care Team Providers Care Flocculator Operator Name Role Phone Viral Dawson MD Primary Care Provider [phone] Allergies No known active allergies Medications albuterol [...] ( moderate disability ) on 12/06/21; updated [place] Back Pain Scale: 23 on 12/06/21initial Oswestry Disability Questionnaire: 26% ( moderate disability ) on 04/28/21; initial [place] Back Pain Scale: 23 on 04/28/21 Chronic kidney disease stage 3 12/30/2020 Hypercholesterolemia 05/09/2013 Hypertension 05/09/2013 Hypothyroidism 05/09/2013 Encounters Date Type Department Care Team Description 11/26/2024 Refill [facility] [address] [place] [address] Keyon Dumont MD Hypertensive chronic kidney disease, [...] patient's age to complete this topic Insurance [facility] MEDICARE [facility] MEDICARE Care Teams Flocculator Operator Relationship Specialty Start Date End Date Viral Dawson MD [address] [place] PCP - General Internal Medicine 03/22/21
--- OUTSIDE RECORDS SUMMARY | 2024-12-18 13:06 | XMS_ITS | Encounter Summary ---
Author Organization [facility] Address [address] [place] [address] Care Team Providers Care Canal Equipment Maintenance Supervisor Name Role Phone Kale Isaacs Primary Care Provider Unavailabl e Marvin Walter Primary Care Provider [phone] Tonny Abreu Primary Care Provider Unavailkiarra e Encounter Details Date Type Department Care Team Description 10/25/2005 Hospital Medical Records [address] [place] [address] Abstract, Provider Social History Tobacco Use Types [...] on filedocumented in this encounter Care Teams Canal Equipment Maintenance Supervisor Relationship Specialty Start Date End Date Kale Isaacs PCP - General 10/28/06 08/11/16 Marvin Walter [address] [place] [address] PCP - General 06/09/1991 10/27/06 Tonny Abreu [address] [place] [address] PCP - General Family Practice 08/12/16 documented as of this encounter
--- OUTSIDE RECORDS SUMMARY | 2024-12-18 13:06 | XMS_ITS | Encounter Summary ---
Author Organization [facility] Address [address] [facility] [address] [place] [address] Phone Care Team Providers Care Assistant Professor Of Sociology Name Role Phone Viral Dawson MD Primary Care Provider [phone] Reason for Visit * Reason Comments Med Refill Encounter Details Date Type Department Care Team (Late st Contact Info) Description 11/26/2024 Refill [facility] [address] [facility] [address] [place] [phone] Keyon Dumont MD [address] [facility] [address] [place] [phone] Hypertensive chronic kidney disease, unspecified, with chronic [...] (HCC) documented in this encounter Care Teams Assistant Professor Of Sociology Relationship Specialty Start Date End Date Viral Dawson MD [address] [place], [place] PCP - General Internal Medicine 03/22/21 documented as of this encounter
--- OUTSIDE RECORDS SUMMARY | 2024-12-18 13:06 | XMS_ITS | Clinical Summary ---
Author Organization [facility] Address [address] [place] [address] Care Team Providers Care Aircraft Maintenance Instructor Name Role Phone Tonny Abreu DO Primary Care Provider [phone] Surgical History Surgery Date Site/Laterality Comments BACK [...] COMMENT: benign etiology BREAST SURGERY Left PROCEDURE: [place] UNLISTED PROCEDURE BREAST; COMMENT: benign Family History [...] Upcoming Encounters Date Type Department Care Team ([facility] Contact Info) Description 07/21/2025 1:30 PM EDT Appointment Radiology Department [address] [address] Health Maintenance Due Date Last Done Comments [...] Breast cancer risk category Low (<15%) Location: [facility], [address] [place] [address], [address], [phone] Procedure Note Thu Ivan MD - 07/24/2024 [...] Breast cancer risk category Low (<15%) Location: [facility], [address] [place] [address], [address], [phone] Viral Dawson MD IMG XR PROCEDURES Final Result from Last 3 Months or Most Recently Relevant to Health Maintenance Care Teams Aircraft Maintenance Instructor Relationship Specialty Start Date End Date Tonny Abreu DO [address] [place] [address] PCP - General 08/12/16
--- OUTSIDE RECORDS SUMMARY | 2024-12-18 13:06 | XMS_ITS | Clinical Summary ---
Author Organization [facility] Address [address] [place] [address] Care Team Providers Care Senior Java Software Developer Name Role Phone Tonny Abreu Primary Care [...] 2017, 01/08/2016, Additional history exists Care Teams Senior Java Software Developer Relationship Specialty Start Date End Date Tonny Abreu PCP - General Family Practice 08/12/16
== END 2024-12-18 11:43 | disposition home or self-care (01) ==
LOC: HO.HMCH 11:07
PROVIDERS: PCP Internal Medicine; Visit Provider Internal Medicine
DX: E03.9 Hypothyroidism, unspecified (principal)

== ENCOUNTER → 2024-12-18 11:06 | Outpatient (BNVA) | payer MEDICARE, SELFPAY | PROVIDERS: PCP Internal Medicine; Visit Provider Internal Medicine | DX: E03.9 Hypothyroidism, unspecified (principal) | CPT/HCPCS: 99212 ==

== ENCOUNTER 2025-02-27 12:20 | Outpatient (REF) | payer MEDICARE, SELFPAY ==
--- OUTSIDE RECORDS SUMMARY | 2025-02-27 12:32 | XMS_ITS | Encounter Summary ---
Author Organization [facility] Address [address] [facility] [address] [place] [address] Phone Care Team Providers Care Pelletizer Tender Name Role Phone Viarl Dawson MD Primary Care Provider [phone] Reason for Visit * Reason Comments Med Refill Encounter Details Date Type Department Care Team (Late st Contact Info) Description 11/26/2024 Refill [facility] [address] [place] [phone] Keyon Dumont MD [address] [facility] [address] [place] [phone] Hypertensive chronic kidney disease, unspecified, with chronic [...] (HCC) documented in this encounter Care Teams Pelletizer Tender Relationship Specialty Start Date End Date Viral Dawson MD [address] [place], [place] PCP - General Internal Medicine 03/22/21 documented as of this encounter
--- OUTSIDE RECORDS SUMMARY | 2025-02-27 12:32 | XMS_ITS | Encounter Summary ---
Author Organization [facility] Address [address] [place] [address] Care Team Providers Care Wood Heel Finisher Name Role Phone Tonny Abreu Primary Care Provider Unavailabl e Encounter Details Date Type Department Care Team Description 07/24/2023 Orders Only Medical Records [address] [place] [address] Tal Moreno MD [address] [place] [id number] Social History Tobacco Use Types Packs/Day Years [...] on file documented as of this encounter Procedures Procedure Name Priority Date/Time Associated Diagnosis Comments OUTSIDE CT Routine 07/18/2023 documented in this encounter Results * OUTSIDE CT (07/18/2023) Tal Moreno MD RADIOLOGY documented in this encounter Visit Diagnoses Not on filedocumented in this encounter Care Teams Wood Heel Finisher Relationship Specialty Start Date End Date Tonny Abreu PCP - General Family Practice 08/12/16 documented as of this encounter
--- OUTSIDE RECORDS SUMMARY | 2025-02-27 12:32 | XMS_ITS | Clinical Summary ---
Author Organization [facility] Address [address] [place] [address] Care Team Providers Care Knee Bolter Name Role Phone Tonny Abreu DO Primary Care Provider [phone] Surgical History Surgery Date Site/Laterality Comments BACK [...] COMMENT: benign etiology BREAST SURGERY Left PROCEDURE: [place] UNLISTED PROCEDURE BREAST; COMMENT: benign Family History [...] Upcoming Encounters Date Type Department Care Team ([facility] Contact Info) Description 07/21/2025 1:30 PM EDT Appointment Radiology Department [address] [address] Health Maintenance Due Date Last Done Comments [...] Annual BMP Blood Test 09/24/2022 RSV Immunization Adult Patients (1 - 1-dose 75+ series) 01/18/2023 COVID-19 Vaccine ( - season) 2024 Influenza Vaccine (Season Ended) 2025 Breast Cancer Screening Discontinued 06/28/20 24, 06/28/2024, [...] age to complete this topic Meningococcal B Vaccine Aged Out No l onger eligible based on patient's age to complete [...] Breast cancer risk category Low (<15%) Location: [facility], [address] [place] [address], [address], [phone] Procedure Note Thu Ivan MD - 07/24/2024 [...] Breast cancer risk category Low (<15%) Location: [facility], [address] [place] [address], [address], [phone] Viral Dawson MD IMG XR PROCEDURES Final Result from Last 3 Months or Most Recently Relevant to Health Maintenance Care Teams Knee Bolter Relationship Specialty Start Date End Date Tonny Abreu DO [facility] [address] [place] [address] PCP - General 08/12/16
--- OUTSIDE RECORDS SUMMARY | 2025-02-27 12:32 | XMS_ITS | Clinical Summary ---
Author Organization [facility] Address [address] [place] [address] Phone Care Team Providers Care Shipping/Receiving Manager Name Role Phone Viral Dawson MD Primary Care Provider [phone] Allergies No known active allergies Medications albuterol [...] Hypercholesterolemia 05/09/2013 Hypertension 05/09/2013 Hypothyroidism 05/09/2013 Immunizations Immunization Administration Dates Next Due Pneumococcal Conjugate 13-Valent [...] Date Last Done Comments Pneumococcal Vaccine: 50+ Ye ars (2 of 2 - PPSV23, PCV20, or PCV21) 08/17/2017 06/22/2017 Influenza Vaccine (Season Ended) 2025 Pneumococcal Vaccine: Peds ( 0 to 5 Years) and At-Risk Patients (6 to 49 Years) Discontinued 06/22/2017 Hepatitis B Vaccine Aged Out No longe r eligible based on patient's age to complete this topic Insurance Medicare Medicare Care Teams Shipping/Receiving Manager Relationship Specialty Start Date End Date Viral Dawson MD [address] [place], [place] PCP - General Internal Medicine 03/22/21
[2025-02-27 13:31] LABS: Hematocrit 33.6 % (37.0-47.0); Hemoglobin 10.7 g/dl (12.0-16.0); Mean Corpuscular HGB Conc 31.8 g/dl (31.0-35.0); Mean Corpuscular Hemoglobin 26.6 pg (27.0-33.0); Mean Corpuscular Volume 83.4 fL (80.0-98.0); Mean Platelet Volume 9.2 fL (9.4-12.3); Platelet Count 435 X10*3/uL (160-400); Red Blood Count 4.03 X10*6/uL (4.20-5.50); Red Cell Distribution Width 17.3 % (11.0-16.0); White Blood Count 8.7 X10*3/uL (4.8-10.8)
[2025-02-27 14:03] LABS: Alanine Aminotransferase 9 U/L (0-31); Albumin Level 4.4 g/dL (3.5-5.0); Alkaline Phosphatase 97 U/L (39-117); Anion Gap 16 (12-20); Aspartate Amino Transferase 20 U/L (5-31); Bilirubin Total 0.4 mg/dL (0.0-1.0); Blood Urea Nitrogen 23 mg/dL (9-16); Calcium 9.9 mg/dL (8.4-10.2); Carbon Dioxide 26 mmol/L (22-29); Chloride 103 mmol/L (96-108); Cholesterol 215 mg/dL (<200); Estimated Glomerular Filt Rate 35; Glucose Fasting 117 mg/dL (60-99); HDL Cholesterol 70 mg/dL (>40); LDL Cholesterol Calculated 125 mg/dL (<100); Potassium 3.6 mmol/L (3.3-5.1); Sodium 141 mmol/L (135-145); Total Protein 7.4 g/dL (6.5-8.0); Triglycerides 101 mg/dL (<150)
[2025-02-27 14:19] LABS: TSH reflex Free T4 16.17 uIU/mL (0.32-4.0)
[2025-02-27 14:54] LABS: Free T4 (Free Thyroxine) 0.96 ng/dL (0.71-1.85)
== END 2025-02-27 12:21 | disposition home or self-care (01) ==
LOC: HO.10HDL 12:20
PROVIDERS: Visit Provider Physician Assistant
DX: E78.5 Hyperlipidemia, unspecified (principal); E03.9 Hypothyroidism, unspecified
CPT/HCPCS: 36415; 80053; 80061; 84439; 84443; 85027

== ENCOUNTER 2025-03-12 11:12 | Outpatient (AMB) | payer MEDICARE, SELFPAY ==
--- NOTE | 2025-03-12 11:23 | A.OFFPC_ITS ---
Vital Signs 03/12/25 11:25 Height 5 ft 6 in Weight 153 lb BMI 24.7 BP 140/60 H Blood Pressure Location Lt brachial Position Sitting Temp 97.3 F Temp Source Temporal Artery Scan Intake Visit Reasons: ALEX[place] DR Dawson Intake Note: Patient is here today for A[place] from Dr Dawson Morning Babysitter Required: No Program Professional: Not Required per policy Accompanied by: Self / Same As Patient Allergies watermelon Allergy (Unknown, Verified 03/12/25 11:35) Unknown Medication List - Last Reconciled 03/12/25 by Joel Ward PA-C albuterol sulfate 90 mcg/actuation 2 puffs PO Q4H PRN calcium carbonate (Calcium 500) 500 mg PO DAILY cholecalciferol (vitamin D3) 50 mcg PO DAILY esomeprazole magnesium 20 mg PO DAILY levothyroxine 112 mcg PO DAILY sertraline 100 mg PO DAILY simvastatin 40 mg PO DAILY Spiriva with HandiHaler (tiotropium bromide) 1 cap PO DAILY NS spironolacton-hydrochlorothiaz 25-25 mg 1 tab PO DAILY Tobacco use date assessed: 03/12/25 Fall risk assessment: No Falls in past year Last assessed Fall Risk: 03/12/25 Dental Screening Dental Screen Date: 12/18/[address] Dawson HPI Details Patient is a 75-year-old female here today for a transfer of care visit. Previous PCP was Dr. Dawson. Patient has a past medical history significant for hypertension, COPD, tobacco dependency, hypothyroidism impaired glucose metabolism. .. COPD: Unfortunately continues to smoke, does follow a [facility] repair and salvage here in [place] Hypertension: Blood pressure slightly elevated today in office, continues on diuretics combo agent. Continues to follow Nephrology. She does have chronic kidney disease and is followed by flour inspector. Will continue to abstain from any nephrotoxins. .. Impaired glucose metabolism: Noted slightly elevated fasting blood sugars for quite some time now. She does admit to dietary indiscretion as of late. Will check an A1c at next lab draw. Hypothyroidism: Most recent TSH elevated at 16, previous TSH at 13. The patient experiences fatigue and depressive moods, attributing these to her hypothyroid condition. Hot flashes have commenced again, although less severe than previously. The episode of hypothyroidism has coincided with her steady weight loss, though she recalls prior historical episodes of weight loss linked to her thyroid condition. -- >Of note lipid panel did elevate in t he setting of hypo functioning thyroid. Will continue to monitor. Will continue her current dose of statin therapy at this time Laboratory Tests 08/17/22 03/08/23 06/13/24 10:20 09:10 12:20 RBC Hgb Creatinine Estimated GFR 35 32 29 Fasting Glucose 106 H Cholesterol TSH 11/21/24 02/27/25 12:31 12:27 RBC 4.03 L Hgb 10.7 L Creatinine 1.47 H 1.44 H Estimated GFR 35 Fasting Glucose 117 H Cholesterol 215 H TSH 13.51 H 16.17 H [facility] Medical History (Updated 03/12/25 @ 11:45 by Joel Ward PA-C) Smoker Failed back syndrome of lumbar spine Hypertension Depression Hypertensive CKD (chronic kidney disease) Personal history of nicotine dependence Hyperlipidemia Obesity Hypothyroidism Surgical History History of cataract surgery (~2015) History of breast biopsy History of lumbar fusion (~2006) History of excision of mass Venous insufficiency (~2015) History of carpal tunnel release (~2011) Family History Father Renal failure Mother Renal failure Brother Diabetes Social History Housing: House Alcohol intake: current Alcohol intake frequency: holidays/special occasions only Patient Tobacco Use Status: Current everyday Tobacco user Tobacco use type: Cigarette Cigarette Packs Per Day: 1 Cigarettes Per Day: 15 e-Cigarette/Vaping Use: Never Used Second Hand Smoke Exposure: Yes service: No Current occupational status: retired Current occupation: right handed Cognitive needs: No Hearing needs: No Vision needs: Yes (reading glasses) Questionnaire PHQ-9 Over the last 2 weeks, how often have you been bothered by any of the following problems? 1. Little interest or pleasure in doing things: nearly every day 2. Feeling down, depressed, or hopeless: nearly every day 3. Trouble falling or staying asleep, or sleeping too much: not at all 4. Feeling tired or having little energy: nearly every day 5. Poor appetite or overeating: not at all 6. Feeling bad about yourself - or that you are a failure or have let yourself or your family down: not at all 7. Trouble concentrating on things, such as reading the newspaper or watching television: not at all 8. Moving or speaking so slowly that other people could have noticed. Or the opposite - being so fidgety or restless that you have been moving around a lot more than usual: not at all 9. Thoughts that you would be better off or of hurting yourself in some way: not at all Total score: 9 Depression Screening Interpretation: Positive Depression Screening Follow-up: Existing condition Depression Screening Done: Yes 94129 - PHQ-9 Billing: Yes Source: Developed by Drs. Ketan Kramer, Sushila Sorto, Conor Foley and colleagues, with an educational logan from [employer]. Thrive Questionnaire Date Thrive assessed: 03/05/25 I am a: Patient What is your living situation today?: I have a steady place to live Within the past 12 months, did the food you bought not last and you didn't have the money to get more?: Never true Within the past 12 months, did you worry whether your food would run out before you got money to buy more?: Never true Do you have trouble paying for medicines?: No Do you have trouble getting transportation to medical appointments?: No Do you have trouble paying your heating and electricity bill?: No Do you have trouble taking care of your child, family member or friend?: No Do you have trouble with day-to-day activities such as bathing, preparing meals, shopping, managing finances, etc.?: No Are you currently unemployed and looking for a job?: No Are you interested in more education?: No Please select the resources that you would like help with: None Currently or been in a relationship where the following occur: No concerns reported THRIVE Score: 0 AUDIT C Alcohol Use Questionnaire (AUDIT-C) 1. How often do you have a drink containing alcohol?: Monthly or less Total Score: 1 KINGSLEY-7 AMB Questionnaire KINGSLEY-7 Date KINGSLEY - 7 assessed: 12/18/24 Feeling nervous, anxious, or on edge: 0 = Not at all Not being able to stop or control worryin = Not at all Worrying too much about different things: 0 = Not at all Trouble relaxin = Not at all Being so restless that it is hard to sit still: 0 = Not at all Becoming easily annoyed or irritable: 0 = Not at all Feeling afraid as if something awful might happen: 0 = Not at all Total KINGSLEY-7 score (0-4 normal; 5-9 mild; 10-14 moderate; 15-21 severe): 0 Source: Developed by Drs. Ketan Kramer, Sushila Sorto, Conor Foley and colleagues, with an educational logan from [employer]. KINGSLEY-7 Assessment Billing KINGSLEY-7 Assessment Tool: KINGSLEY-7 Assessment 11028 Review of Systems Const Denies headache(s) Eyes Denies loss of vision ENT Denies vertigo, Denies dizziness, Denies headache(s) and Denies sore throat Card Denies chest pain, Denies leg edema and Denies lightheadedness Resp Denies cough, Denies hemoptysis and Denies wheezing GI Denies abdominal pain, Denies melena, Denies constipation, Denies diarrhea and Denies vomiting Denies urinary frequency, Denies dysuria and Denies urinary urgency Musc Denies arthralgias, Denies joint swelling, Denies numbness and Denies tingling Neuro Denies Abnormal speech present, Denies behavioral changes, Denies vertigo, Denies dizziness, Denies headache(s), Denies loss of vision, Denies memory loss, Denies numbness and Denies tingling Psych Denies anxiety, Denies behavioral changes, Denies depression, Denies memory loss and Denies panic attacks Nathan/Lymph Denies easy bleeding and Denies easy bruising Aller/Immun Denies wheezing Physical exam (Primary Care) Vital Signs: Last Vital Signs Temp 97.3 F 03/12/25 11:25 BP 140/60 H 03/12/25 11:25 BMI result Body Mass Index 24.7 Tobacco/Smoking Status: Tobacco use Status Tobacco use date assessed 03/12/25 03/12/25 11:32 Patient Tobacco Use Status Current everyday Tobacco 03/12/25 11:32 Tobacco use type Cigarette 03/12/25 11:32 e-Cigarette/Vaping Use Never Used 03/12/25 11:32 Are you ready to quit: No Tobacco cessation counseling provided: Yes Items discussed: Nicotine replacement Relapse Prevention: discussed the importance of a supportive environment, discussed negative mood or depression after quitting, weight gain after smoking is common and discussed dietary, exercise and/or lifestyle changes Number of minutes spent counselin CPT code: 70213 - 4-10 Minutes PHQ-9: PHQ-9 Score PHQ-9: Total score 9 03/12/25 11:32 Depression Screening Interpretation: Positive Depression Screening Follow-up: Existing condition Thrive Assessment: Date of Thrive Assessment Date Thrive assessed 03/05/25 03/12/25 11:32 Currently or been in a relationship where the following occur: No concerns reported Const General: healthy appearing, no acute distress, alert and awake Nutritional Appearance: well nourished Orientation/consciousness: oriented to person, oriented to place and oriented to time HENMT Ears: TM's normal bilaterally General nose exam: Normal nasal mucous membranes and turbinates present Eyes Conjunctivae: conjunctivae normal Sclerae: sclerae normal Pupils: Equal, round and reactive pupils present Neck Neck: Yes no lymphadenopathy and Yes no JVD Thyroid: Thyroid normal Carotids: no bruits Resp Effort & Inspection: normal respiratory effort and not tachypneic Auscultation: no crackles, no rales, no rhonchi and no wheezes Cardio Rate: regular rate Rhythm: regular rhythm Heart sounds: no murmurs and normal S1 and S2 GI Palpation (GI): Soft to palpation, nontender, no hepatomegaly and no splenomegaly Auscultation: normal bowel sounds Skin General skin exam: no rashes or lesions noted and dry skin Neuro General: oriented to person, oriented to place and oriented to time Cranial nerves: Yes Equal, round and reactive pupils present Speech: No Abnormal speech present Gait exam (Neuro): Normal gait present Motor exam (neuro): no tremor noted Extrem Right upper extremity: full ROM Left upper extremity: full ROM Right lower extremity: full ROM; no edema Left lower extremity: full ROM; no edema Psych Mental Status: mental status grossly normal Speech and movement: Normal speech and movement present Affect: normal affect Attitude: cooperative Thought process: Normal thought process present Coding Level of Care Code Est Pt Level 4 (45228) Diagnoses Acquired hypothyroidism E03.9 Hypothyroidism type: acquired Stage 3 chronic kidney disease, unspecified whether stage 3a or 3b CKD N18.30 Chronic kidney disease stage: stage 3 (moderate) Chronic kidney disease stage 3 subtype: unspecified whether 3a or 3b Primary hypertension I10 Hypertension type: primary hypertension Centrilobular emphysema J43.2 COPD type: emphysema Emphysema type: centrilobular Smoker F17.200 Additional Codes PHQ-9 - 45832 - PHQ-9 Billing: Yes ([id number]) KINGSLEY-7 Assessment Billing - KINGSLEY-7 Assessment Tool: KINGSLEY-7 Assessment 24971 ([id number]) Vital Signs *Quality* - CPT code: 01885 - 4-10 Minutes ([id number]) Assessment & Plan Assessment & Plan (1) Hypothyroidism: Code(s): E03.9 - Hypothyroidism, unspecified Category: Medical Qualifiers: Hypothyroidism type: acquired Qualified Code(s): E03.9 - Hypothyroidism, unspecified Plan: Most recent TSH elevated at 16. Will increase her levothyroxine to 137 mcg daily. We did review the correct administration of the medication. She does have Yaneth's and does report having hot flashes and weight reduction has a recently. Advised on doing an ultrasound of thyroid and perhaps seeing thyroid specialist endocrinology (2) CKD (chronic kidney disease): Code(s): N18.9 - Chronic kidney disease, unspecified Category: Medical Qualifiers: Chronic kidney disease stage: stage 3 (moderate) Chronic kidney disease stage 3 subtype: unspecified whether 3a or 3b Qualified Code(s): N18.30 - C hronic kidney disease, stage 3 unspecified Plan: Patient followed by Nephrology, most recent creatinine at 1.44. (3) Hypertension: Code(s): I10 - Essential (primary) hypertension Category: Medical Qualifiers: Hypertension type: primary hypertension Qualified Code(s): I10 - Essential (primary) hypertension Plan: Patient's blood pressure slightly elevated today in office, continues on spironolactone and hydrochlorothiazide with decent affect on her blood pressure. Goal blood pressure is to be below 140/90 (4) COPD (chronic obstructive pulmonary disease): Comment: THIS PATIENT DOES HAVE CHRONIC OBSTRUCTIVE PULMONARY DISEASE, MILD TO MODERATE, SEEMS TO BE WELL CONTROLLED WITH HER CURRENT REGIMEN. MILD INTERMITTENT COUGH EXPECTED SECONDARY TO SMOKING. Code(s): J44.9 - Chronic obstructive pulmonary disease, unspecified Category: Medical Qualifiers: COPD type: emphysema Emphysema type: centrilobular Qualified Code(s): J43.2 - Centrilobular emphysema Plan: Continues to smoke, has followed by pulmonology here in [place]. She denies any recent pulmonary issues (5) Smoker: Comment: Unfortunately patient resumed smoking last year after the of 1 of her friends. She has difficulty in quitting. STILL SMOKING ABOUT 15-20 CIGARETTES A DAY. Code(s): F17.200 - Nicotine dependence, unspecified, uncomplicated Category: Social Hx Plan: She does understand she needs to quit smoking though has found it very difficult to do so. Continue cessation support and maintain annual lung health screenings. Orders: Orders Thyroid Peroxidase Antibodies 6 Weeks E03.9 - Hypothyroidism, unspecified T4 Thyroxine 6 Weeks E03.9 - Hypothyroidism, unspecified US thyroid Today E03.9 - Hypothyroidism, unspecified TSH reflex Free T4 6 Weeks E03.9 - Hypothyroidism, unspecified Triiodothyronine T3 Free 6 Weeks E03.9 - Hypothyroidism, unspecified Medications: New levothyroxine 137 mcg PO DAILY 30 days 30 tabs 1RF E03.9 - Hypothyroidism, unspecified Discontinued levothyroxine Discontinued Reason: Doctor's Order 112 mcg PO DAILY 30 tabs 0RF
[2025-03-12 11:25] VITALS: BP 140/60; TEMP 36.3; BMI 24.7
--- OUTSIDE RECORDS SUMMARY | 2025-03-12 12:16 | XMS_ITS | Clinical Summary ---
Author Organization [facility] Address [address] [place] [address] Phone Care Team Providers Care Rn Radiation Oncology Name Role Phone Viral Dawson MD Primary Care Provider [phone] Allergies No known active allergies Medications albuterol [...] this topic Insurance Medicare Medicare Care Teams Rn Radiation Oncology Relationship Specialty Start Date End Date Viral Dawson MD [address] [place], [place] PCP - General Internal Medicine 03/22/21
== END 2025-03-12 11:54 | disposition home or self-care (01) ==
LOC: HO.HMCH 11:19
PROVIDERS: PCP Physician Assistant; Visit Provider Physician Assistant
DX: E03.9 Hypothyroidism, unspecified (principal); N18.30 Chronic kidney disease, stage 3 unspecified; I10 Essential (primary) hypertension; J43.2 Centrilobular emphysema; F17.200 Nicotine dependence, unspecified, uncomplicated

== ENCOUNTER → 2025-03-12 11:12 | Outpatient (BNVA) | payer MEDICARE, SELFPAY | PROVIDERS: PCP Internal Medicine; Visit Provider Physician Assistant | DX: I12.9 Hypertensive chronic kidney disease with stage 1 through stage 4 chronic kidney disease, or unspecified chronic kidney disease (principal); N18.30 Chronic kidney disease, stage 3 unspecified; J43.2 Centrilobular emphysema; E03.9 Hypothyroidism, unspecified; F17.210 Nicotine dependence, cigarettes, uncomplicated; R73.01 Impaired fasting glucose; Z71.6 Tobacco abuse counseling | CPT/HCPCS: 96127; 99212 ==

== ENCOUNTER 2025-03-24 10:42 | Outpatient (REF) | payer MEDICARE, SELFPAY ==
[2025-03-24 10:46] VITALS: BP 135/63; PULSE 62; RESP 18; O2SAT 99; BMI 24.7
--- OUTSIDE RECORDS SUMMARY | 2025-03-24 12:01 | XMS_ITS | Clinical Summary ---
Author Organization [facility] Address [address] [place] [address] Care Team Providers Care Medical Grade Shoemaker Name Role Phone Tonny Abreu DO Primary Care Provider [phone] Surgical History Surgery Date Site/Laterality Comments BACK [...] COMMENT: benign etiology BREAST SURGERY Left PROCEDURE: [place] UNLISTED PROCEDURE BREAST; COMMENT: benign Family History [...] Upcoming Encounters Date Type Department Care Team ([facility] Contact Info) Description 07/21/2025 1:30 PM EDT Appointment Radiology Department [address] [address] Health Maintenance Due Date Last Done Comments [...] Breast cancer risk category Low (<15%) Location: [facility], [address] [place] [address], [address], [phone] Procedure Note Thu Ivan MD - 07/24/2024 [...] Breast cancer risk category Low (<15%) Location: [facility], [address] [place] [address], [address], [phone] Viral Dawson MD IMG XR PROCEDURES Final Result from Last 3 Months or Most Recently Relevant to Health Maintenance Care Teams Medical Grade Shoemaker Relationship Specialty Start Date End Date Tonny Abreu DO [facility] [place] [id number] PCP - General 08/12/16
== END 2025-03-24 10:43 | disposition home or self-care (01) ==
LOC: HO.MS 10:42
PROVIDERS: PCP Internal Medicine; Visit Provider Ophthalmology
PROC: (CPT 66821; principal; 2025-03-24 13:20)
DX: H26.492 Other secondary cataract, left eye (principal)
CPT/HCPCS: 66821

== ENCOUNTER 2025-04-22 14:38 | Outpatient (REF) | payer MEDICARE, SELFPAY ==
--- NOTE | ~2025-04-22 | US_ITS ---
EXAMINATION: US THYROID HISTORY: E03.9 - Hypothyroidism, unspecified TECHNIQUE: Real-time grayscale ultrasound imaging was performed and images were reviewed. COMPARISON: There are no prior studies available for comparison. FINDINGS: SIZE: The right thyroid lobe measures 3.1 x 0.8 x 1.0 cm. The left thyroid lobe measures 2.1 x 0.7 x 0.6 cm. The isthmus measures 2 mm. FLOW: Flow to the gland is normal. ECHOGENICITY: The echotexture of the gland is heterogeneous. NODULES: No nodules are identified. US/US thyroid IMPRESSION: Small thyroid gland without discrete nodules. ACR TI-RADS Guidelines TR1 (0 points): Benign, No follow-up or biopsy required TR2 (2 points): Not Suspicious, No biopsy or follow up indicated TR3 (3 points): Mildly Suspicious, FNA if >= 2.5 cm, Follow if >= 1.5 cm TR4 (4-6 points): Moderately Suspicious, FNA if >= 1.5 cm, Follow if >= 1.0 cm TR5 (>=7 points): Highly Suspicious, FNA if >= 1.0 cm, Follow if >= 0.5 cm Electronically signed by: Ketan Garces MD 04/22/2025 03:24 PM EDT
--- OUTSIDE RECORDS SUMMARY | 2025-04-22 15:59 | XMS_ITS | Encounter Summary ---
Author Organization [facility] Address [address] [place] [address] Care Team Providers Care Animal Health Technician Name Role Phone Tonny Abreu Primary Care Provider Unavailabl e Encounter Details Date Type Department Care Team Description 12/10/2021 Contracts Law Professor Report Medical Records [address] [place] [address] Tal Moreno MD [address] [place] [address] Social History Tobacco Use Types Packs/Day Years [...] on filedocumented in this encounter Care Teams Animal Health Technician Relationship Specialty Start Date End Date Tonny Abreu PCP - General Family Practice 08/12/16 documented as of this encounter
--- OUTSIDE RECORDS SUMMARY | 2025-04-22 15:59 | XMS_ITS | Clinical Summary ---
Author Organization [facility] Address [address] [place] [address] Phone Care Team Providers Care Change Attendant Name Role Phone Viral Dawson MD Primary Care Provider [phone] Allergies No known active allergies Medications albuterol [...] ( moderate disability ) on 12/06/21; updated [place] Back Pain Scale: 23 on 12/06/21initial Oswestry Disability Questionnaire: 26% ( moderate disability ) on 04/28/21; initial [place] Back Pain Scale: 23 on 04/28/21 Chronic [...] PCV20, or PCV21) 08/17/2017 06/22/2017 Influenza Vaccine (#1) 2025 Pneumococcal Vaccine: Peds ( 0 to 5 Years) and At-Risk Patients (6 to 49 Years) Discontinued 06/22/2017 Hepatitis B Vaccine Aged Out No longe r eligible based on patient's age to complete this topic Insurance Medicare Medicare Care Teams Change Attendant Relationship Specialty Start Date End Date Viral Dawson MD [address] [place], [place] PCP - General Internal Medicine 03/22/21
--- OUTSIDE RECORDS SUMMARY | 2025-04-22 15:59 | XMS_ITS | Clinical Summary ---
Author Organization [facility] Address [address] [place] [address] Care Team Providers Care Documentation Billing Clerk Name Role Phone Tonny Abreu DO Primary Care Provider [phone] Surgical History Surgery Date Site/Laterality Comments BACK [...] COMMENT: benign etiology BREAST SURGERY Left PROCEDURE: [place] UNLISTED PROCEDURE BREAST; COMMENT: benign Family History [...] Upcoming Encounters Date Type Department Care Team ([facility] Contact Info) Description 07/21/2025 1:30 PM EDT Appointment Radiology Department [address] [address] Health Maintenance Due Date Last Done Comments [...] ( - season) 2024 Influenza Vaccine (#1) 2025 Breast Cancer Screening Discontinued 06/28/20 24, [...] cancer risk category Low (<15%) Location: [facility], [address] [place] [address], [address], [phone] Procedure Note Thu Ivan MD - 07/24/2024 [...] cancer risk category Low (<15%) Location: [facility], [address] [place] [address], [address], [phone] Viral Dawson MD IMG XR PROCEDURES Final Result from Last 3 Months or Most Recently Relevant to Health Maintenance Care Teams Documentation Billing Clerk Relationship Specialty Start Date End Date Tonny Abreu DO [facility] [address] [place] [address] PCP - General 08/12/16
[2025-04-22 16:50] LABS: Free T4 (Free Thyroxine) 0.96 ng/dL (0.71-1.85)
== END 2025-04-22 14:39 | disposition home or self-care (01) ==
LOC: HO.US 14:38
PROVIDERS: PCP Physician Assistant; Visit Provider Physician Assistant
DX: E03.9 Hypothyroidism, unspecified (principal)
CPT/HCPCS: 36415; 76536; 84436; 84439; 84443; 84481; 86376

== ENCOUNTER → 2025-04-22 14:51 | Outpatient (BNV) | payer MEDICARE, SELFPAY | PROVIDERS: PCP Physician Assistant; Visit Provider Radiology Diagnostic Radiology | DX: E03.9 Hypothyroidism, unspecified (principal) | CPT/HCPCS: 76536 ==

== ENCOUNTER 2025-05-15 12:07 | Outpatient (REF) | payer MEDICARE, SELFPAY ==
--- OUTSIDE RECORDS SUMMARY | 2025-05-15 12:30 | XMS_ITS | Clinical Summary ---
Author Organization [facility] Address [address] [place] [address] Care Team Providers Care Scalping Machine Operator Name Role Phone Tonny Abreu DO Primary Care Provider [phone] Surgical History Surgery Date Site/Laterality Comments BACK [...] COMMENT: benign etiology BREAST SURGERY Left PROCEDURE: [place] UNLISTED PROCEDURE BREAST; COMMENT: benign Family History [...] Date Type Department Care Team ([facility] Contact Info) Description 07/21/2025 1:30 PM EDT Appointment Radiology Department [address] [address] Health Maintenance Due Date Last Done Comments DTaP,Tdap,and Td Vaccines (1 - Tdap) 01/18/1967 Pneumococcal Vaccine: 50+ Years (1 of 2 - PCV) 01/18/1967 Zoster Vaccines (1 of 2) 01/18/1998 Cholesterol Screening (Lipid Panel) 09/18/2022 Falls Risk Assessment 09/18/2022 Hepatitis C Screening 09/18/2022 Osteoporosis Screening (Bone Density Screening) 09/18/2022 Social Influencers of Health Screening 09/18/2022 Hypertension/CHF/CAD Annual BMP Blood Test 09/24/2022 RSV Immunization Adult Patients (1 - 1-dose 75+ series) 01/18/2023 COVID-19 Vaccine ( season) 2024 Depression Screening 10/09/2024 Influenza Vaccine (#1) 2025 Breast Cancer Screening [...] Breast cancer risk category Low (<15%) Location: [facility], [address] [place] [address], [address], [phone] Procedure Note Thu Ivan MD - 07/24/2024 [...] Breast cancer risk category Low (<15%) Location: [facility], [address] [place] [address], [address], [phone] Viral Dawson MD IMG XR PROCEDURES Final Result from Last 3 Months or Most Recently Relevant to Health Maintenance Care Teams Scalping Machine Operator Relationship Specialty Start Date End Date Tonny Abreu DO [facility] [place] [address] PCP - General 08/12/16
--- OUTSIDE RECORDS SUMMARY | 2025-05-15 12:30 | XMS_ITS | Clinical Summary ---
Author Organization [facility] Address [address] [place] [address] Phone Care Team Providers Care Slubber Operator Name Role Phone Viral Dawson MD Primary Care Provider [phone] Allergies No known active allergies Medications albuterol [...] ( moderate disability ) on 12/06/21; updated [place] Back Pain Scale: 23 on 12/06/21initial Oswestry Disability Questionnaire: 26% ( moderate disability ) on 04/28/21; initial [place] Back Pain Scale: 23 on 04/28/21 Chronic [...] this topic Insurance Medicare Medicare Care Teams Slubber Operator Relationship Specialty Start Date End Date Viral Dawson MD [address] [place], [place] PCP - General Internal Medicine 03/22/21
--- OUTSIDE RECORDS SUMMARY | 2025-05-15 12:30 | XMS_ITS | Encounter Summary ---
Author Organization [facility] Address [address] [place] [address] Care Team Providers Care Associate Professor Of Biblical Studies Name Role Phone Tonny Abreu Primary Care Provider Unavailabl e Encounter Details Date Type Department Care Team Description 12/10/2021 Foundry Hand Report Medical Records [address] [place] [address] Tal Moreno MD [address] [place] [id number] Social History Tobacco Use Types Packs/Day Years [...] on filedocumented in this encounter Care Teams Associate Professor Of Biblical Studies Relationship Specialty Start Date End Date Tonny Abreu PCP - General Family Practice 08/12/16 documented as of this encounter
[2025-05-15 13:54] LABS: Anion Gap 16 (12-20); Blood Urea Nitrogen 22 mg/dL (9-16); Calcium 9.8 mg/dL (8.4-10.2); Carbon Dioxide 27 mmol/L (22-29); Chloride 103 mmol/L (96-108); Estimated Glomerular Filt Rate 39; Potassium 4.5 mmol/L (3.3-5.1); Sodium 141 mmol/L (135-145)
== END 2025-05-15 12:08 | disposition home or self-care (01) ==
LOC: HO.10HDL 12:07
PROVIDERS: Visit Provider Internal Medicine Hypertension Specialist
DX: N18.9 Chronic kidney disease, unspecified (principal)
CPT/HCPCS: 36415; 80048

== ENCOUNTER 2025-06-12 11:07 | Outpatient (AMB) | payer MEDICARE, SELFPAY ==
--- NOTE | 2025-06-12 11:13 | A.OFFPC_ITS ---
Vital Signs 06/12/25 11:14 Height 5 ft 6 in Weight 153 lb 4 oz BMI 24.7 BP 132/68 Blood Pressure Location Lt brachial Position Sitting Pulse 61 Pulse Source Pulse Oximeter Temp 97.1 F Temp Source Temporal Artery Scan Pulse Oximetry (%) 95 Oxygen Delivery Method Room Air Intake Visit Reasons: f/u hypothyroid/ COPD Intake Note: Patient is here to follow up on Hypothyroid, COPD. Aircraft Cleaner Required: No And Drying Supervisor Cooking Casing: Not Required per policy Accompanied by: Self / Same As Patient Allergies No Known Allergies Allergy (Verified 06/12/25 11:59) Medication List - Last Reconciled 06/12/25 by Joel Ward PA-C albuterol sulfate 90 mcg/actuation 2 puffs PO Q4H PRN calcium carbonate (Calcium 500) 500 mg PO DAILY cholecalciferol (vitamin D3) 50 mcg PO DAILY esomeprazole magnesium 20 mg PO DAILY levothyroxine 137 mcg PO DAILY 30 days sertraline 100 mg PO DAILY simvastatin 40 mg PO DAILY Spiriva with HandiHaler (tiotropium bromide) 1 cap PO DAILY NS spironolacton-hydrochlorothiaz 25-25 mg 1 tab PO DAILY Tobacco use date assessed: 06/12/25 Fall risk assessment: No Falls in past year Last assessed Fall Risk: 06/12/25 Dental Screening Dental Screen Date: 12/18/24 HPI f/u hypothyroid/ COPD HPI Details Patient is a 75-year-old female here today for follow-up visit. Patient has a past medical history significant for hypertension, COPD, tobacco dependency, hypothyroidism impaired glucose metabolism. .. COPD: Unfortunately continues to smoke, has had a very difficult time quitting smoking. She does follow a substation operator chief here in [place]. She denies any COPD exacerbations Hypertension: Blood pressure acceptable today in office, continues on diuretics combo agent. Continues to follow Nephrology. She does have chronic kidney disease and is followed by drop press hand. Will continue to abstain from any nephrotoxins. .. Impaired glucose metabolism: Noted slightly elevated fasting blood sugars for quite some time now. Will check an A1c at next lab draw. Hypothyroidism: Found to have very elevated TSH in spring, now on higher dose of levothyroxine and most recent TSH at 4.1. Laboratory Tests 02/27/25 04/22/25 05/15/25 12:27 14:49 12:15 Random Glucose 116 H TSH 16.17 H 4.18 H PFSH Medical History Smoker Failed back syndrome of lumbar spine Hypertension Depression Hypertensive CKD (chronic kidney disease) Personal history of nicotine dependence Hyperlipidemia Obesity Hypothyroidism Surgical History History of cataract surgery (~2015) History of breast biopsy History of lumbar fusion (~2006) History of excision of mass Venous insufficiency (~2015) History of carpal tunnel release (~2011) Family History Father Renal failure Mother Renal failure Brother Diabetes Social History Housing: House Alcohol intake: current Alcohol intake frequency: holidays/special occasions only Patient Tobacco Use Status: Current everyday Tobacco user Tobacco use type: Cigarette Cigarette Packs Per Day: 1 Cigarettes Per Day: 20 e-Cigarette/Vaping Use: Never Used Second Hand Smoke Exposure: Yes service: No Current occupational status: retired Current occupation: right handed Cognitive needs: No Hearing needs: No Vision needs: Yes (reading glasses) Questionnaire PHQ-9 Over the last 2 weeks, how often have you been bothered by any of the following problems? 1. Little interest or pleasure in doing things: nearly every day 2. Feeling down, depressed, or hopeless: nearly every day 3. Trouble falling or staying asleep, or sleeping too much: not at all 4. Feeling tired or having little energy: nearly every day 5. Poor appetite or overeating: not at all 6. Feeling bad about yourself - or that you are a failure or have let yourself or your family down: not at all 7. Trouble concentrating on things, such as reading the newspaper or watching television: not at all 8. Moving or speaking so slowly that other people could have noticed. Or the opposite - being so fidgety or restless that you have been moving around a lot more than usual: not at all 9. Thoughts that you would be better off or of hurting yourself in some way: not at all Total score: 9 Depression Screening Interpretation: Positive Depression Screening Follow-up: Existing condition Depression Screening Done: Yes 61395 - PHQ-9 Billing: Yes Source: Developed by Drs. Ketan Kramer, Sushila Sorto, Conor Foley and colleagues, with an educational logan from [employer]. Thrive Questionnaire Date Thrive assessed: 03/05/25 I am a: Patient What is your living situation today?: I have a steady place to live Within the past 12 months, did the food you bought not last and you didn't have the money to get more?: Never true Within the past 12 months, did you worry whether your food would run out before you got money to buy more?: Never true Do you have trouble paying for medicines?: No Do you have trouble getting transportation to medical appointments?: No Do you have trouble paying your heating and electricity bill?: No Do you have trouble taking care of your child, family member or friend?: No Do you have trouble with day-to-day activities such as bathing, preparing meals, shopping, managing finances, etc.?: No Are you currently unemployed and looking for a job?: No Are you interested in more education?: No Please select the resources that you would like help with: None Currently or been in a relationship where the following occur: No concerns reported THRIVE Score: 0 AUDIT C Alcohol Use Questionnaire (AUDIT-C) 1. How often do you have a drink containing alcohol?: Monthly or less Total Score: 1 KINGSLEY-7 AMB Questionnaire KINGSLEY-7 Date KINGSLEY - 7 assessed: 12/18/24 Feeling nervous, anxious, or on edge: 0 = Not at all Not being able to stop or control worryin = Not at all Worrying too much about different things: 0 = Not at all Trouble relaxin = Not at all Being so restless that it is hard to sit still: 0 = Not at all Becoming easily annoyed or irritable: 0 = Not at all Feeling afraid as if something awful might happen: 0 = Not at all Total KINGSLEY-7 score (0-4 normal; 5-9 mild; 10-14 moderate; 15-21 severe): 0 Source: Developed by Drs. Ketan Kramer, Conor Coleman and colleagues, with an educational logan from [employer]. KINGSLEY-7 Assessment Billing KINGSLEY-7 Assessment Tool: KINGSLEY-7 Assessment 94263 Review of Systems Const Denies headache(s) Eyes Denies loss of vision ENT Denies vertigo, Denies dizziness, Denies headache(s) and Denies sore throat Card Denies chest pain, Denies leg edema and Denies lightheadedness Resp Denies cough, Denies hemoptysis and Denies wheezing GI Denies abdominal pain, Denies melena, Denies constipation, Denies diarrhea and Denies vomiting Denies urinary frequency, Denies dysuria and Denies urinary urgency Musc Denies arthralgias, Denies joint swelling, Denies numbness and Denies tingling Neuro Denies Abnormal speech present, Denies behavioral changes, Denies vertigo, Denies dizziness, Denies headache(s), Denies loss of vision, Denies memory loss, Denies numbness and Denies tingling Psych Denies anxiety, Denies behavioral changes, Denies depression, Denies memory loss and Denies panic attacks Nathan/Lymph Denies easy bleeding and Denies easy bruising Aller/Immun Denies wheezing Physical exam (Primary Care) Vital Signs: Last Vital Signs Temp 97.1 F 06/12/25 11:14 Pulse 61 06/12/25 11:14 BP 132/68 06/12/25 11:14 Pulse Ox 95 06/12/25 11:14 Oxygen Delivery Method Room Air 06/12/25 11:14 BMI result Body Mass Index 24.7 Tobacco/Smoking Status: Tobacco use Status Tobacco use date assessed 06/12/25 06/12/25 11:35 Patient Tobacco Use Status Current everyday Tobacco 06/12/25 11:35 Tobacco use type Cigarette 06/12/25 11:35 e-Cigarette/Vaping Use Never Used 06/12/25 11:35 PHQ-9: PHQ-9 Score PHQ-9: Total score 9 06/12/25 12:00 Depression Screening Interpretation: Positive Depression Screening Follow-up: Existing condition Thrive Assessment: Date of Thrive Assessment Date Thrive assessed 03/05/25 06/12/25 11:35 Currently or been in a relationship where the following occur: No concerns reported Const General: healthy appearing, no acute distress, alert and awake Nutritional Appearance: well nourished Orientation/consciousness: oriented to person, oriented to place and oriented to time HENMT Ears: TM's normal bilaterally General nose exam: Normal nasal mucous membranes and turbinates present Eyes Conjunctivae: conjunctivae normal Sclerae: sclerae normal Pupils: Equal, round and reactive pupils present Neck Other: NOTED CAROTID BRUITS Neck: Yes no lymphadenopathy and Yes no JVD Thyroid: Thyroid normal Carotids: no bruits Resp Effort & Inspection: normal respiratory effort and not tachypneic Auscultation: no crackles, no rales, no rhonchi and no wheezes Cardio Rate: regular rate Rhythm: regular rhythm Heart sounds: no murmurs and normal S1 and S2 GI Palpation (GI): Soft to palpation, nontender, no hepatomegaly and no splenomegaly Auscultation: normal bowel sounds Skin General skin exam: no rashes or lesions noted and dry skin Neuro General: oriented to person, oriented to place and oriented to time Cranial nerves: Yes Equal, round and reactive pupils present Speech: No Abnormal speech present Gait exam (Neuro): Normal gait present Motor exam (neuro): no tremor noted Extrem Right upper extremity: full ROM Left upper extremity: full ROM Right lower extremity: full ROM; no edema Left lower extremity: full ROM; no edema Psych Mental Status: mental status grossly normal Speech and movement: Normal speech and movement present Affect: normal affect Attitude: cooperative Thought process: Normal thought process present Coding Level of Care Code Est Pt Level 4 (44072) Diagnoses Acquired hypothyroidism E03.9 Hypothyroidism type: acquired Stage 3 chronic kidney disease, unspecified whether stage 3a or 3b CKD N18.30 Chronic kidney disease stage: stage 3 (moderate) Chronic kidney disease stage 3 subtype: unspecified whether 3a or 3b Primary hypertension I10 Hypertension type: primary hypertension Centrilobular emphysema J43.2 COPD type: emphysema Emphysema type: centrilobular Smoker F17.200 Bilateral carotid bruits R09.89 Additional Codes PHQ-9 - 60412 - PHQ-9 Billing: Yes ([id number]) KINGSLEY-7 Assessment Billing - KINGSLEY-7 Assessment Tool: KINGSLEY-7 Assessment 45985 ([id number]) Assessment & Plan Assessment & Plan (1) Hypothyroidism: Code(s): E03.9 - Hypothyroidism, unspecified Category: Medical Qualifiers: Hypothyroidism type: acquired Qualified Code(s): E03.9 - Hypothyroidism, unspecified Plan: Most recent TSH improved from 16-4.1. We have increased her levothyroxine and feels she is now stable on 137 mcg. Will continue to follow TSH to assure normal. (2) CKD (chronic kidney disease): Code(s): N18.9 - Chronic kidney disease, unspecified Category: Medical Qualifiers: Chronic kidney disease stage: stage 3 (moderate) Chronic kidney disease stage 3 subtype: unspecified whether 3a or 3b Qualified Code(s): N18.30 - Chronic kidney disease, stage 3 unspecified Plan: Patient followed by Nephrology, most recent creatinine at 1.44. (3) Hypertension: Code(s): I10 - Essential (primary) hypertension Category: Medical Qualifiers: Hypertension type: primary hypertension Qualified Code(s): I10 - Essential (primary) hypertension Plan: Patient's blood pressure acceptable today in office,, continues on spironolactone and hydrochlorothiazide with decent affect on her blood pressure. Goal blood pressure is to be below 140/90 (4) COPD (chronic obstructive pulmonary disease): Comment: THIS PATIENT DOES HAVE CHRONIC OBSTRUCTIVE PULMONARY DISEASE, MILD TO MODERATE, SEEMS TO BE WELL CONTROLLED WITH HER CURRENT REGIMEN. MILD INTERMITTENT COUGH EXPECTED SECONDARY TO SMOKING. Code(s): J44.9 - Chronic obstructive pulmonary disease, unspecified Category: Medical Qualifiers: COPD type: emphysema Emphysema type: centrilobular Qualified Code(s): J43.2 - Centrilobular emphysema Plan: Continues to smoke, has followed by pulmonology here in [place]. She denies any recent pulmonary issues (5) Smoker: Comment: Unfortunately patient resumed smoking last year after the of 1 of her friends. She has difficulty in quitting. STILL SMOKING ABOUT 15-20 CIGARETTES A DAY. Code(s): F17.200 - Nicotine dependence, unspecified, uncomplicated Category: Social Hx Plan: She does understand she needs to quit smoking though has found it very difficult to do so. Continue cessation support and maintain annual lung health screenings. (6) Bilateral carotid bruits: Code(s): R09.89 - Other specified symptoms and signs involving the circulatory and respiratory systems Category: Medical Plan: Noted bilateral carotid bruits more notable on left. Will send for ultrasounds of bilateral carotid arteries to evaluate for any severe stenosis. Orders: Orders Complete Blood Count no Diff Today I10 - Essential (primary) hypertension Lipid Panel Today E78.5 - Hyperlipidemia, unspecified TSH reflex Free T4 Today E03.9 - Hypothyroidism, unspecified US carotid duplex BI Today R09.89 - Other specified symptoms and signs involving the circulatory and respiratory systems Microalbumin, Random (w Creat) Today I10 - Essential (primary) hypertension Comprehensive [place]. Panel Fast Today I10 - Essential (primary) hypertension Medications: Changed From levothyroxine 137 mcg PO DAILY 30 days 30 tabs 1RF E03.9 - Hypothyroidism, unspecified To levothyroxine 137 mcg PO DAILY 90 tabs 1RF 90 days E03.9 - Hypothyroidism, unspecified From sertraline 100 mg PO DAILY 30 tabs 3RF To sertraline 100 mg PO DAILY 90 tabs 1RF 90 days
[2025-06-12 11:14] VITALS: BP 132/68; PULSE 61; TEMP 36.2; O2SAT 95; BMI 24.7
--- OUTSIDE RECORDS SUMMARY | 2025-06-12 12:44 | XMS_ITS | Clinical Summary ---
Author Organization [facility] Address [address] [place] [address] Care Team Providers Care Carpenter Prototype Name Role Phone Tonny Abreu DO Primary Care Provider [phone] Surgical History Surgery Date Site/Laterality Comments BACK [...] COMMENT: benign etiology BREAST SURGERY Left PROCEDURE: [place] UNLISTED PROCEDURE BREAST; COMMENT: benign Family History [...] Upcoming Encounters Date Type Department Care Team ([facility] Contact Info) Description 07/21/2025 1:40 PM EDT Appointment Radiology Department [address] [address] Health Maintenance Due Date Last Done Comments [...] Patients (1 - 1-dose 75+ series) 01/18/2023 Depression Screening 10/09/2024 COVID-19 Vaccine ( season) 2025 Influenza Vaccine (#1) 2025 Breast Cancer Screening [...] category Low (<15%) Location: [facility], [address] [place] [address], [address], [phone] Procedure Note Thu Ivan MD - 07/24/2024 [...] category Low (<15%) Location: [facility], [address] [place] [address], [address], [phone] Viral Dawson MD IMG XR PROCEDURES Final Result from Last 3 Months or Most Recently Relevant to Health Maintenance Care Teams Carpenter Prototype Relationship Specialty Start Date End Date Tonny Abreu DO [facility] [place] [address] PCP - General 08/12/16
--- OUTSIDE RECORDS SUMMARY | 2025-06-12 12:44 | XMS_ITS | Clinical Summary ---
Author Organization [facility] Address [address] [place] [address] Phone Care Team Providers Care Insurance Customer Service Specialist Name Role Phone Viral Dawson MD Primary Care Provider [phone] Allergies No known active allergies Medications albuterol [...] disability ) on 12/06/21; updated [place] Back Pain Scale: 23 on 12/06/21initial Oswestry Disability Questionnaire: 26% ( moderate disability ) on 04/28/21; initial [place] Back Pain Scale: 23 on 04/28/21 [...] this topic Insurance Medicare Medicare Care Teams Insurance Customer Service Specialist Relationship Specialty Start Date End Date Viral Dawson MD [address] [place], [place] PCP - General Internal Medicine 03/22/21
--- OUTSIDE RECORDS SUMMARY | 2025-06-12 12:44 | XMS_ITS | Encounter Summary ---
Author Organization [facility] Address [address] [facility] [address] [place] [address] Phone Care Team Providers Care Florist Manager Name Role Phone Viral Dawson MD Primary Care Provider [phone] Reason for Visit * Reason Comments Med Refill Encounter Details Date Type Department Care Team (Late st Contact Info) Description 11/26/2024 Refill [facility] [address] [place] [id number] Keyon Dumont MD [address] [facility] [address] [place] [address] Hypertensive chronic kidney disease, unspecified, with chronic [...] (HCC) documented in this encounter Care Teams Florist Manager Relationship Specialty Start Date End Date Viral Dawson MD [address] [place], [place] PCP - General Internal Medicine 03/22/21 documented as of this encounter
== END 2025-06-12 12:09 | disposition home or self-care (01) ==
LOC: HO.HMCH 11:08
PROVIDERS: PCP Physician Assistant; Visit Provider Physician Assistant
DX: E03.9 Hypothyroidism, unspecified (principal); N18.30 Chronic kidney disease, stage 3 unspecified; I10 Essential (primary) hypertension; J43.2 Centrilobular emphysema; F17.200 Nicotine dependence, unspecified, uncomplicated; R09.89 Other specified symptoms and signs involving the circulatory and respiratory systems

== ENCOUNTER → 2025-06-12 11:07 | Outpatient (BNVA) | payer MEDICARE, SELFPAY | PROVIDERS: PCP Internal Medicine; Visit Provider Physician Assistant | DX: I12.9 Hypertensive chronic kidney disease with stage 1 through stage 4 chronic kidney disease, or unspecified chronic kidney disease (principal); J44.9 Chronic obstructive pulmonary disease, unspecified; E03.9 Hypothyroidism, unspecified; R73.01 Impaired fasting glucose; N18.30 Chronic kidney disease, stage 3 unspecified; J43.2 Centrilobular emphysema; R09.89 Other specified symptoms and signs involving the circulatory and respiratory systems; F17.210 Nicotine dependence, cigarettes, uncomplicated | CPT/HCPCS: 96127; 99212 ==

== ENCOUNTER 2025-06-23 11:07 | Outpatient (AMB) | payer MEDICARE, SELFPAY ==
[2025-06-23 11:17] VITALS: BP 110/60; PULSE 56; O2SAT 99; BMI 25.1
--- NOTE | 2025-06-23 11:17 | A.OFFVIS_ITS ---
Vital Signs 06/23/25 11:17 Height 5 ft 6 in Weight 155 lb 6.814 oz BMI 25.1 BP 110/60 Blood Pressure Location Lt brachial Position Sitting Pulse 56 Pulse Source Pulse Oximeter Pulse Oximetry (%) 99 Oxygen Delivery Method Room Air Intake Visit Reasons: COPD Intake Note: pt is here for follow up and states she is feeling good, just usual cough. Associate Director Of Sales Required: No Allergies No Known Allergies Allergy (Verified 06/23/25 11:44) Medication List - Last Reconciled 06/23/25 by Guera Herrera MD albuterol sulfate 90 mcg/actuation 2 puffs PO Q4H PRN calcium carbonate (Calcium 500) 500 mg PO DAILY cholecalciferol (vitamin D3) 50 mcg PO DAILY esomeprazole magnesium 20 mg PO DAILY levothyroxine 137 mcg PO DAILY 90 days sertraline 100 mg PO DAILY 90 days simvastatin 40 mg PO DAILY Spiriva with HandiHaler (tiotropium bromide) 1 cap PO DAILY NS spironolacton-hydrochlorothiaz 25-25 mg 1 tab PO DAILY Do you need a note to return to daycare/school/sports/work: No HPI HPI COPD: Details: Melisa is 75 years old female, with history of smoking, chronic obstructive pulmonary disease, comes for her usual follow-up after 6 months. Her main symptom is intermittent cough which is worse after smoking. . It is mostly nonproductive She does get short of breath on walking up hill or climbing. Stairs but not at level ground Still smokes about 10 cigarettes a day. Has had a small pulmonary nodule in the left upper lobe which is being followed closely [facility] Medical History Smoker Failed back syndrome of lumbar spine Hypertension Depression Hypertensive CKD (chronic kidney disease) Personal history of nicotine dependence Hyperlipidemia Obesity Hypothyroidism Surgical History History of cataract surgery (~2015) History of breast biopsy History of lumbar fusion (~2006) History of excision of mass Venous insufficiency (~2015) History of carpal tunnel release (~2011) Family History Father Renal failure Mother Renal failure Brother Diabetes Social History Housing: House Alcohol intake: current Alcohol intake frequency: holidays/special occasions only Patient Tobacco Use Status: Current everyday Tobacco user Tobacco use type: Cigarette Cigarette Packs Per Day: 0.75 Cigarettes Per Day: 20 e-Cigarette/Vaping Use: Never Used Second Hand Smoke Exposure: Yes service: No Current occupational status: retired Current occupation: right handed Cognitive needs: No Hearing needs: No Vision needs: Yes (reading glasses) Review of Systems Const All systems reviewed & are unremarkable except as noted in HPI and below ENT Reports no additional complaints Card Denies chest pain, Denies irregular heart rhythm and Denies leg edema Resp Reports as per HPI GI Reports heartburn (Controlled with med) Reports no additional complaints Musc Reports no additional complaints Skin/Breast Reports system reviewed and no additional complaints, except as documented Neuro Reports no additional complaints Psych Reports depression (Controlled with med) Endo Reports other (Thyroid controlled with med) Aller/Immun Reports no additional complaints Physical Exam Vital Signs: Last Vital Signs Pulse 56 06/23/25 11:17 BP 110/60 06/23/25 11:17 Pulse Ox 99 06/23/25 11:17 Oxygen Delivery Method Room Air 06/23/25 11:17 BMI result Body Mass Index 25.1 Const General: comfortable, no acute distress, alert and awake Orientation/consciousness: patient oriented x3 HEENT Head: Yes normal to inspection General nose exam: No nasal polyps present and No nasal discharge present Face and sinus: Yes sinuses nontender Mouth: oropharynx normal Throat: Yes posterior oropharynx normal Eyes General: appearance normal, both eyes and all related structures Neck Neck: Yes normal visual inspection, Yes no lymphadenopathy, Yes trachea midline and Yes no JVD Thyroid: Thyroid normal Chest Chest palpation & inspection: normal inspection of the chest, normal palpation of entire chest wall and no tenderness Resp Other: Percussion note resonant, breath sounds are distant with prolonged expiratory phase. But no crepitations or wheezes are heard. Cardio Palpation: normal PMI Rate: regular rate Rhythm: regular rhythm Heart sounds: no gallops and no murmurs GI Palpation (GI): Soft to palpation, nontender, No hepatosplenomegaly present and no masses Auscultation: normal bowel sounds Back/Spine/Pelvis Thoracic/Lumbar Spine: thoracic and lumbar spine normal to inspection Skin General skin exam: no rashes or lesions noted Neuro General: patient oriented x3 and no focal motor deficits Cranial nerves: Yes CN's II-XII intact bilaterally Extrem General: Yes normal to inspection, Yes no clubbing, cyanosis or edema and Yes no calf tenderness Psych Appearance: grossly normal and well kempt Speech and movement: Normal speech and movement present Results Reviewed Results Reviewed: CT CHEST 12/04/2024 9 mm noncalcified pulmonary nodule, lingula. Stable. Concerning aspiration. Hernia, moderate to large volume. Multifocal cystic lesions in the kidneys. Spondylosis, lower thoracic and upper lumbar spine. Fleischner guidelines were followed. Assessment & Plan Assessment & Plan (1) Personal history of nicotine dependence: Comment: (50+PYH) As noted in the history she resumed smoking. Claims that she has cut down to 10 cigarettes a day and is trying to cut it further, Code(s): Z87.891 - Personal history of nicotine dependence Category: Medical Plan: And a good talk about. Cutting down the smoking Because of her emotional issues she is not able to cut it down any further. Does not want to use nicotine patches or gums. (2) COPD (chronic obstructive pulmonary disease): Comment: THIS PATIENT DOES HAVE CHRONIC OBSTRUCTIVE PULMONARY DISEASE, MILD TO MODERATE, SEEMS TO BE WELL CONTROLLED WITH HER CURRENT REGIMEN. MILD INTERMITTENT COUGH EXPECTED SECONDARY TO SMOKING. Code(s): J44.9 - Chronic obstructive pulmonary disease, unspecified Category: Medical Qualifiers: COPD type: emphysema Emphysema type: centrilobular Qualified Code(s): J43.2 - Centrilobular emphysema Plan: Continue using Spiriva HandiHaler. 1 inhalation daily And albuterol HFA 2 puffs Q 6 hours p.r.n.. (3) Pulmonary nodule: Comment: (6x10mm MASON nodule on 10/29/21 LDCT) Last LDCT in November 2024, 9 mm nodule in the lingular lobe, unchanged from before. Code(s): R91.1 - Solitary pulmonary nodule Category: Medical Plan: Patient is instructed to get LDCT on yearly basis. She will be getting the CT scan in November 2025. Coding Level of Care Code Est Pt Level 3 (97242) Diagnoses Personal history of nicotine dependence Z87.891 Centrilobular emphysema J43.2 COPD type: emphysema Emphysema type: centrilobular Pulmonary nodule R91.1
--- OUTSIDE RECORDS SUMMARY | 2025-06-23 14:49 | XMS_ITS | Encounter Summary ---
Author Organization [facility] Address [address] [facility] [address] [place] [address] Phone Care Team Providers Care Cupola Tender Name Role Phone Viral Dawson MD Primary Care Provider [phone] Reason for Visit * Reason Comments Med Refill Encounter Details Date Type Department Care Team (Late st Contact Info) Description 11/26/2024 Refill [facility] [address] [place] [id number] Keyon Dumont MD [address] [facility] [address] [place] [address] Hypertensive chronic kidney disease, unspecified, [...] (HCC) documented in this encounter Care Teams Cupola Tender Relationship Specialty Start Date End Date Viral Dawson MD [address] [place], [place] PCP - General Internal Medicine 03/22/21 documented as of this encounter
--- OUTSIDE RECORDS SUMMARY | 2025-06-23 14:49 | XMS_ITS | Clinical Summary ---
Author Organization [facility] Address [address] [place] [address] Phone Care Team Providers Care Ui Programmer Name Role Phone Viral Dawson MD Primary Care Provider [phone] Allergies No known active allergies Medications albuterol [...] ( moderate disability ) on 12/06/21; updated [place] Back Pain Scale: 23 on 12/06/21initial Oswestry Disability Questionnaire: 26% ( moderate disability ) on 04/28/21; initial [place] Back Pain Scale: 23 on 04/28/21 Chronic [...] this topic Insurance Medicare Medicare Care Teams Ui Programmer Relationship Specialty Start Date End Date Viral Dawson MD [address] [place], [place] PCP - General Internal Medicine 03/22/21
--- OUTSIDE RECORDS SUMMARY | 2025-06-23 14:49 | XMS_ITS | Clinical Summary ---
Author Organization [facility] Address [address] [place] [address] Care Team Providers Care Street Light Cleaner Name Role Phone Tonny Abreu DO Primary Care Provider [phone] Surgical History Surgery Date Site/Laterality Comments BACK [...] Date Type Department Care Team ([facility] Contact Info) Description 07/21/2025 1:40 PM EDT Appointment Radiology Department [address] [address] Health Maintenance Due Date Last Done Comments DTaP,Tdap,and Td Vaccines (1 - Tdap) 01/18/1967 Pneumococcal Vaccine: 50+ Years (1 of 2 - PCV) 01/18/1967 Zoster Vaccines (1 of 2) 01/18/1998 Cholesterol Screening (Lipid Panel) 09/18/2022 Falls Risk Assessment 09/18/2022 Hepatitis C Screening 09/18/2022 Medicare Annual Wellness Visit 09/18/2022 Osteoporosis Screening (Bone Density Screening) 09/18/2022 Social Influencers of Health Screening 09/18/2022 Hypertension/CHF/CAD Annual BMP Blood Test 09/24/2022 RSV Immunization Adult Patients (1 - 1-dose 75+ series) 01/18/2023 Depression Screening 10/09/2024 COVID-19 Vaccine ( - 2023- season) 2025 Influenza Vaccine (#1) 2025 Breast [...] Breast cancer risk category Low (<15%) Location: [facility], [address] [place] [address], [address], [phone] Procedure Note Thu Ivan MD - 07/24/2024 [...] Breast cancer risk category Low (<15%) Location: [facility], [address] [place] [address], [address], [phone] Viral Dawson MD IMG XR PROCEDURES Final Result from Last 3 Months or Most Recently Relevant to Health Maintenance Insurance [employer] MEDICARE ADVANTAGE Care Teams Street Light Cleaner Relationship Specialty Start Date End Date Tonny Abreu DO [address] [address] [place] [address] PCP - General 08/12/16
== END 2025-06-23 11:44 | disposition home or self-care (01) ==
LOC: HO.HPS 11:07
PROVIDERS: PCP Internal Medicine; Visit Provider Internal Medicine
DX: Z87.891 Personal history of nicotine dependence (principal); J43.2 Centrilobular emphysema; R91.1 Solitary pulmonary nodule
CPT/HCPCS: 99213

== ENCOUNTER → 2025-06-23 11:07 | Outpatient (BNVA) | payer MEDICARE, SELFPAY | PROVIDERS: PCP Internal Medicine; Visit Provider Internal Medicine | DX: J43.2 Centrilobular emphysema (principal); Z87.891 Personal history of nicotine dependence | CPT/HCPCS: 99212 ==

== ENCOUNTER 2025-06-24 14:38 | Outpatient (AMB) | payer MEDICARE, SELFPAY ==
--- NOTE | 2025-06-24 14:42 | HO.NEPHOV_ITS ---
Vital Signs 06/24/25 14:43 06/24/25 14:54 Height 5 ft 6 in Weight 155 lb BMI 25.0 BP 168/78 H 130/74 Blood Pressure Location Lt brachial Lt brachial Position Sitting Pulse 84 Pulse Source Pulse Oximeter Pulse Oximetry (%) 94 Oxygen Delivery Method Room Air Intake Visit Reasons: F/U Boatbuilder Supervisor Required: No Accompanied by: Self / Same As Patient Allergies No Known Allergies Allergy (Verified 06/24/25 14:45) Medication List - Last Reconciled 06/24/25 by Jluis Pruett MD albuterol sulfate 90 mcg/actuation 2 puffs PO Q4H PRN calcium carbonate (Calcium 500) 500 mg PO DAILY cholecalciferol (vitamin D3) 50 mcg PO DAILY esomeprazole magnesium 20 mg PO DAILY levothyroxine 137 mcg PO DAILY 90 days sertraline 100 mg PO DAILY 90 days simvastatin 40 mg PO DAILY Spiriva with HandiHaler (tiotropium bromide) 1 cap PO DAILY NS spironolacton-hydrochlorothiaz 25-25 mg 1 tab PO DAILY HPI Comments Details: 73 yr old woman with h/o smoking and HTN with CKD Here for semiannual follow up Continues to smoke but sut down from 1PPD to half PPD 06/24/25 The patient is a 75-year-old female presenting with hypertension management. Blood pressure was initially high, repeat was 130/74 mmHg. She is on spironolactone with hydrochlorothiazide 25/25 mg, no changes in medication. Chronic cough present, occasional phlegm production, continues to smoke, plans to quit. Preventative measures include dietary salt reduction and smoking cessation. Medications: - Spironolactone with hydrochlorothiazide 25/25 mg for hypertension Social History: - Tobacco use: Patient continues to smoke, plans to quit. [facility] Medical History Smoker Failed back syndrome of lumbar spine Hypertension Depression Hypertensive CKD (chronic kidney disease) Personal history of nicotine dependence Hyperlipidemia Obesity Hypothyroidism Surgical History History of cataract surgery (~2015) History of breast biopsy History of lumbar fusion (~2006) History of excision of mass Venous insufficiency (~2015) History of carpal tunnel release (~2011) Family History Father Renal failure Mother Renal failure Brother Diabetes Social History Housing: House Alcohol intake: current Alcohol intake frequency: holidays/special occasions on ly Patient Tobacco Use Status: Current everyday Tobacco user Tobacco use type: Cigarette Cigarette Packs Per Day: 0.75 Cigarettes Per Day: 20 e-Cigarette/Vaping Use: Never Used Second Hand Smoke Exposure: Yes service: No Current occupational status: retired Current occupation: right handed Cognitive needs: No Hearing needs: No Vision needs: Yes (reading glasses) Physical Exam Vital Signs: Last Vital Signs Pulse 84 06/24/25 14:43 BP 168/78 H 06/24/25 14:43 Pulse Ox 94 06/24/25 14:43 Oxygen Delivery Method Room Air 06/24/25 14:43 BMI result Body Mass Index 25.0 Comfortable Neck supple no JVD. Lungs entry equal no rales. Heart S1-S2 heard no gallop or rub. Abdomen soft nontender. Neuro alert awake oriented. No asterixis. Extremities no edema. Results Reviewed Nephrology Results: Sodium, (135-145) 141 mmol/L 05/15/25 Potassium, (3.3-5.1) 4.5 mmol/L Δ 05/15/25 Chloride, (96-108) 103 mmol/L 05/15/25 Carbon Dioxide, (22-29) 27 mmol/L 05/15/25 BUN, (9-16) 22 mg/dL H 05/15/25 Creatinine, (0.5-1.4) 1.33 mg/dL 05/15/25 Calcium, (8.4-10.2) 9.8 mg/dL 05/15/25 Renal US 02/03/22 Assessment & Plan Assessment & Plan (1) Hypertensive CKD (chronic kidney disease): Code(s): I12.9 - Hypertensive chronic kidney disease with stage 1 through stage 4 chronic kidney disease, or unspecified chronic kidney disease Category: Medical (2) CKD (chronic kidney disease): Code(s): N18.9 - Chronic kidney disease, unspecified Category: Medical Qualifiers: Chronic kidney disease stage: stage 3 (moderate) Chronic kidney disease stage 3 subtype: unspecified whether 3a or 3b Qualified Code(s): N18.30 - Chronic kidney disease, stage 3 unspecified Plan Elderly woman with CKD in a setting of HTN and obesity Creatinine is better and close to baseline Now at 1.33 No proteinuria Goal to keep SBP < 140 Avoid nephrotoxins including NSAIDS Needs to stop smoking; Discussed with patient. Bilateral simple cysts in kidney NO further follow up has been recommended Mild anemia No indication for Epogen Orders: Orders Basic Metabolic Panel 6 Months I10 - Essential (primary) hypertension, N18.30 - Chronic kidney disease, stage 3 unspecified Coding Level of Care Code Est Pt Level 4 (23589) Diagnoses Hypertensive CKD (chronic kidney disease) I12.9 Stage 3 chronic kidney disease, unspecified whether stage 3a or 3b CKD N18.30 Chronic kidney disease stage: stage 3 (moderate) Chronic kidney disease stage 3 subtype: unspecified whether 3a or 3b
[2025-06-24 14:43] VITALS: BP 168/78; PULSE 84; O2SAT 94; BMI 25.0
[2025-06-24 14:54] VITALS: BP 130/74
--- OUTSIDE RECORDS SUMMARY | 2025-06-24 18:21 | XMS_ITS | Clinical Summary ---
Author Organization [facility] Address [address] [place] [address] Care Team Providers Care Commercial Fisherman Name Role Phone Tonny Abreu DO Primary Care Provider [phone] Surgical History Surgery Date Site/Laterality Comments BACK [...] Upcoming Encounters Date Type Department Care Team ([facility] Contact Info) Description 07/21/2025 1:40 PM EDT Appointment Radiology Department [address] [address] Health Maintenance Due Date Last Done Comments [...] Breast cancer risk category Low (<15%) Location: [facility], [address] [place] [address], [address], [phone] Procedure Note Thu Ivan MD - 07/24/2024 [...] Breast cancer risk category Low (<15%) Location: [facility], [address] [place] [address], [address], [phone] Viral Dawson MD IMG XR PROCEDURES Final Result from Last 3 Months or Most Recently Relevant to Health Maintenance Insurance [employer] MEDICARE ADVANTAGE Care Teams Commercial Fisherman Relationship Specialty Start Date End Date Tonny Abreu DO [address] [address] [place] [address] PCP - General 08/12/16
--- OUTSIDE RECORDS SUMMARY | 2025-06-24 18:21 | XMS_ITS | Clinical Summary ---
Author Organization [facility] Address [address] [address] [place] [address] Phone Care Team Providers Care Superintendent Meter Tests Name Role Phone Viral Dawson MD Primary Care Provider [phone] Allergies No known active allergies Medications albuterol [...] age to complete this [place] [address] [place] [address] Care Teams Superintendent Meter Tests Relationship Specialty Start Date End Date Viral Dawson MD [address] [place], [place] PCP - General Internal Medicine 03/22/21
--- OUTSIDE RECORDS SUMMARY | 2025-06-24 18:21 | XMS_ITS | Encounter Summary ---
Author Organization [facility] Address [address] [facility] [address] [place] [address] Phone Care Team Providers Care Trash Man Name Role Phone Viral Dawson MD Primary Care Provider [phone] Reason for Visit * Reason Comments Med Refill Encounter Details Date Type Department Care Team (Late st Contact Info) Description 11/26/2024 Refill [facility] [address] [place] [phone] Keyon Dumont MD [address] [facility] [address] [place] [address] Hypertensive chronic kidney disease, unspecified, [...] (HCC) documented in this encounter Care Teams Trash Man Relationship Specialty Start Date End Date Viral Dawson MD [address] [place], [place] PCP - General Internal Medicine 03/22/21 documented as of this encounter
== END 2025-06-24 14:57 | disposition home or self-care (01) ==
LOC: HO.HKA 14:39
PROVIDERS: PCP Physician Assistant; Visit Provider Internal Medicine Hypertension Specialist
DX: I12.9 Hypertensive chronic kidney disease with stage 1 through stage 4 chronic kidney disease, or unspecified chronic kidney disease (principal); N18.30 Chronic kidney disease, stage 3 unspecified
CPT/HCPCS: 99214

== ENCOUNTER → 2025-06-24 14:38 | Outpatient (BNVA) | payer MEDICARE, SELFPAY | PROVIDERS: PCP Physician Assistant; Visit Provider Internal Medicine Hypertension Specialist | DX: I12.9 Hypertensive chronic kidney disease with stage 1 through stage 4 chronic kidney disease, or unspecified chronic kidney disease (principal); N18.30 Chronic kidney disease, stage 3 unspecified | CPT/HCPCS: 99212 ==

== ENCOUNTER 2025-08-05 14:54 | Outpatient (REF) | payer MEDICARE, SELFPAY ==
--- NOTE | ~2025-08-05 | US_ITS ---
EXAMINATION: US EXTRACRANIAL CAROTID DUPLEX, BILATERAL CLINICAL INFORMATION: Hyperlipidemia, hypertension, tobacco use COMPARISON: None available. TECHNIQUE: Real-time ultrasound and Doppler techniques (integrating B-mode 2-D vascular images, Doppler spectral analysis and color-flow Doppler imaging) were utilized to interrogate the extracranial carotid arteries, the vertebral arteries and proximal subclavian arteries bilaterally. The degree of stenosis is determined by criteria similar to NASCET. FINDINGS: Right Side: 1. There is mild atherosclerotic plaque seen in the bifurcation/proximal ICA region. 2. The common carotid artery PSV proximally is 81 cm/s and distally 92 cm/s. 3. The proximal internal carotid artery velocities are 58 cm/s systolic and 11 cm/s diastolic. 4. The proximal external carotid artery PSV is 109 cm/s. 5. The vertebral artery shows antegrade flow. 6. The subclavian artery waveforms are triphasic. ICA/CCA ratio 0.6 Left Side: ICA is tortuous. 1. There is mild atherosclerotic plaque seen in the bifurcation/proximal ICA region. 2. The common carotid artery PSV proximally is 95 cm/s and distally 62 cm/s. 3. The proximal internal carotid artery velocities are 73 cm/s systolic and 21 cm/s diastolic. 4. The proximal external carotid artery PSV is 83 cm/s. 5. The vertebral artery shows antegrade flow. 6. The subclavian artery waveforms are triphasic. ICA/CCA ratio 0.8 US/US carotid duplex BI IMPRESSION: 1. RIGHT: No hemodynamically significant stenosis, less than 50% 2. LEFT: No hemodynamically significant stenosis, less than 50% Electronically signed by: Niles Romero MD 08/05/2025 04:02 PM EDT
--- OUTSIDE RECORDS SUMMARY | 2025-08-05 19:19 | XMS_ITS | Clinical Summary ---
Author Organization [facility] Address [address] [facility] [address] [address] [place] [address] Phone Care Team Providers Care Unit Secretary Name Role Phone Viral Dawson MD Primary Care Provider [phone] Allergies No known active allergies Medications albuterol [...] ( moderate disability ) on 12/06/21; updated [place] Back Pain Scale: 23 on 12/06/21initial Oswestry Disability Questionnaire: 26% ( moderate disability ) on 04/28/21; initial [place] Back Pain Scale: 23 on 04/28/21 Chronic [...] this topic Insurance Medicare Medicare Care Teams Unit Secretary Relationship Specialty Start Date End Date Viral Dawson MD [address] [place], [place] PCP - General Internal Medicine 03/22/21
--- OUTSIDE RECORDS SUMMARY | 2025-08-05 19:19 | XMS_ITS | Clinical Summary ---
Author Organization [facility] [address] [place] [address] [place] [address] Phone Care Team Providers Care Food Aide Name Role Phone Tonny Abreu DO Primary Care Provider [phone] Encounters Date Type Department Care Team Description 07/21/2025 1:26 PM EDT - 07/21/2025 11:59 PM EDT Hospital Encounter Radiology Department [address] [phone] Encounter for screening mammogram for breast cancer Discharge Disposition: Home or Self Care from Last 3 Months Surgical History Surgery Date Site/Laterality Comments BACK [...] COMMENT: benign etiology BREAST SURGERY Left PROCEDURE: ME UNLISTED PROCEDURE BREAST; COMMENT: benign Family History [...] = 0.6 oz pur e alcohol) Comments No Sex and Gender Information Value Date Recorded Sex Assigned at Not on file Legal Sex Female 9:10 PM EST Gender Identity Not on file Sexual Orientation Not on file Obstetrics History Plan of Treatment Health Maintenance Due Date Last Done Comments Zoster Vaccines (1 of 2) 01/18/1998 Cholesterol Screening (Lipid Panel) 09/18/2022 Falls Risk Assessment 09/18/2022 Hepatitis C Screening 09/18/2022 Lung Cancer Screening (Low Dose CT) 09/18/2022 Medicare Annual Wellness Visit 09/18/2022 Osteoporosis Screening (Bone Density Screening) 09/18/2022 Social Influencers of Health Screening 09/18/2022 Hypertension/CHF/CAD Annual BMP Blood Test 09/24/2022 Depression Screening 10/09/2024 COVID-19 Vaccine ( season) 2025 09/11/2024, 08/08/2023, 08/08/2022, Additional history exists Influenza Vaccine (#1) 2025 , 08/07/2023, 08/09/2022, Additional history exists DTaP,Tdap,and Td Vaccines (4 - Td or Tdap) 07/10/2029 07/10/2019, 07/10/2019, 06/12/2013 Pneumococcal Vaccine: 50+ Years Completed 02/28/2018, 06/22/2017, 2017, Additional history exists RSV Immunization Adult Patients Completed 08/08/2023 Breast Cancer Screening Discontinued 07/21/20, 06/28/2024, 06/28/2024, Additional history exists HIB Vaccines Aged Out [...] Procedure Name Priority Date/Time Associated Diagnosis Comments MG MAMMO DIGITAL SCREENING W TAO BILAT Routine 07/21/2025 1:39 PM EDT Encounter for screening mammogram for breast cancer from Last 3 Months Results * MG Mammo Digital Screening w Tao bilat (07/21/2025 1:39 PM EDT) Anatomical Region Laterality Modality Breast Bilateral Mammography 07/23/2025 10:5 6 AM EDT Impressions 07/23/2025 11:01 AM EDT Benign. BI-RADS CATEGORY: 1 - NEGATIVE RECOMMENDATION: Screening bilateral mammogram is recommended in 1 year. Mammo Location: [facility], [address] [place] [address], [address], . -------- FINAL REPORT -------- Dictated By: Rasheeda Alfaro Dictated Date: 07/23/2025 10:56 ET Assigned Physician: Rasheeda Alfaro Reviewed and Electronically Signed By: Rasheeda Alfaro Signed Date: 07/23/2025 11:01 ET Workstation ID: [id number] Transcribed By: Self Edit Transcribed Date: 07/23/2025 10:56 ET Narrative 07/23/2025 11:01 AM EDT CLINICAL: 75 years old, Female, routine annual exam. COMPARISON: Mammograms dating back to 02/08/2021 with most recent of 06/28/2024 TECHNIQUE: Bilateral MLO and CC views were obtained digitally with 3-D mammogram (digital breast tomosynthesis). Computer-aided detection was utilized in evaluation of this exam (CAD). FINDINGS: There is no evidence of suspicious mass or architectural distortion. No worrisome calcifications are evident. There has been no significant change from prior exam(s). BREAST DENSITY: C - The breasts are heterogeneously dense which may obscure small masses. Procedure Note Rasheeda Alfaro MD - 07/23/2025 CLINICAL: 75 years old, Female, routine annual exam. COMPARISON: Mammograms dating back to 02/08/2021 with most recent of06/28/2024 TECHNIQUE: Bilateral MLO and CC views were obtained digitally with 3-Dmammogram (digital breast tomosynthesis). Computer-aided detection wasutilized in evaluation of this exam (CAD). FINDINGS: There is no evidence of suspicious mass or architectural distortion. Noworrisome calcifications are evident. There has been no significantchange from prior exam(s). BREAST DENSITY: C - The breasts are heterogeneously dense which mayobscure small masses. IMPRESSION: Benign. BI-RADS CATEGORY: 1 - NEGATIVE RECOMMENDATION: Screening bilateral mammogram is recommended in 1 year. Mammo Location: [facility], [address] [place] [address], [address], . -------- FINAL REPORT -------- Dictated By: Rasheeda Alfaro Dictated Date: 07/23/2025 10:56 ET Assigned Physician: Rasheeda Alfaro Reviewed and Electronically Signed By: Rasheeda Alfaro Signed Date: 07/23/2025 11:01 ET Workstation ID: [id number] Transcribed By: Self Edit Transcribed Date: 07/23/2025 10:56 ET Tonny Abreu DO IMG BI PROCEDURES Final Result from Last 3 Months Insurance [employer] MEDICARE ADVANTAGE Care Teams Food Aide Relationship Specialty Start Date End Date Tonny Abreu DO [facility] [place] [address] PCP - General 08/12/16
--- OUTSIDE RECORDS SUMMARY | 2025-08-05 19:19 | XMS_ITS | Encounter Summary ---
Author Organization [facility] Address [address] [facility] [address] [place] [address] Phone Care Team Providers Care Rug Inspector Helper Name Role Phone Viral Dawson MD Primary Care Provider Reason for Visit * Reason Comments Med Refill Encounter Details Date Type Department Care Team (Late st Contact Info) Description 11/26/2024 Refill [facility] [address] [place] [id number] Keyon Dumont MD [address] [facility] [address] [place] [address] Hypertensive chronic kidney disease, unspecified, [...] (HCC) documented in this encounter Care Teams Rug Inspector Helper Relationship Specialty Start Date End Date Viral Dawson MD [address] [place], [place] PCP - General Internal Medicine 03/22/21 documented as of this encounter
== END 2025-08-05 14:55 | disposition home or self-care (01) ==
LOC: HO.US 14:54
PROVIDERS: PCP Physician Assistant; Visit Provider Physician Assistant
DX: R09.89 Other specified symptoms and signs involving the circulatory and respiratory systems (principal)
CPT/HCPCS: 93880

== ENCOUNTER → 2025-08-05 14:55 | Outpatient (BNV) | payer MEDICARE, SELFPAY | PROVIDERS: PCP Physician Assistant; Visit Provider Radiology Diagnostic Radiology | DX: E78.5 Hyperlipidemia, unspecified (principal); I10 Essential (primary) hypertension; F17.200 Nicotine dependence, unspecified, uncomplicated | CPT/HCPCS: 93880 ==